=== PATIENT | female | born 1980 | race Hispanic/Latino ===

== ENCOUNTER 2017-08-12 19:08 | Emergency (ER) | payer MEDICAID, OTHER ==
[2017-08-12 19:08] VITALS: BMI 23.1
[2017-08-12 19:25] VITALS: BP 109/86; PULSE 107; RESP 22; TEMP 98.4; O2SAT 92
--- NOTE | 2017-08-13 13:58 | CARD ---
APPROVED REPORT EKG Measurement Heart [id number] <Conclusion> Normal sinus rhythm Possible Anterior infarct, age undetermined Abnormal ECG
== END 2017-08-12 20:36 | disposition left against medical advice (07) ==
LOC: C.ER 19:08
DX: Z02.89 Encounter for other administrative examinations (principal); R05 Cough
CPT/HCPCS: 93005; LWBS0

== ENCOUNTER → 2017-08-18 17:57 | Emergency (ER) | payer OTHER ==
[2017-08-18 17:57] VITALS: BMI 23.1
== END | disposition left against medical advice (07) ==
LOC: C.ER 17:57
DX: Z02.89 Encounter for other administrative examinations (principal); R07.9 Chest pain, unspecified

== ENCOUNTER 2017-11-08 12:57 | Emergency (ER) | payer MEDICAID, OTHER ==
[2017-11-08 12:58] VITALS: BMI 23.1
== END 2017-11-08 13:04 | disposition left against medical advice (07) ==
LOC: C.ER 12:57
DX: Z02.89 Encounter for other administrative examinations (principal)

== ENCOUNTER 2017-11-08 14:39 | Inpatient (IN) | payer MEDICAID, OTHER ==
[2017-11-08 14:39] VITALS: BMI 23.1
[2017-11-08 15:45] LABS: BASO # 0.1 K/uL (0.0-0.2); BASO % 2.3 % (0.0-2.0); EOS # 0.1 K/uL (0.0-0.7); HEMOGLOBIN 13.5 g/dL (11.0-16.0); LYMPH # 3.7 K/uL (1.0-4.3); MEAN CELL VOLUME 96.9 fL (81.0-99.0); MEAN CORPUSCULAR HEMOGLOBIN 33.9 pg (27.0-31.0); MEAN PLATELET VOLUME 6.8 fL (7.2-11.7); MONO # 0.3 K/uL (0.0-0.8); MONO % 6.1 % (0.0-10.0); NEUT # 1.3 K/uL (1.8-7.0); NEUT % 23.6 % (50.0-75.0); RBC 3.97 Mil/uL (3.80-5.20); RED CELL DISTRIBUTION WIDTH 13.2 % (11.5-14.5); WHITE BLOOD COUNT 5.5 K/uL (4.8-10.8)
[2017-11-08 15:57] LABS: HCG,QUALITATIVE URINE NEGATIVE (NEGATIVE)
[2017-11-08 16:17] LABS: ALBUMIN 4.2 g/dL (3.5-5.0); ALT/SGPT 84 U/L (9-52); AST/SGOT 199 U/L (14-36); BLOOD UREA NITROGEN 4 mg/dL (7-17); CALCIUM 8.6 mg/dl (8.6-10.4); GFR AFRICAN-AMERICAN > 60; GFR NON-AFRICAN AMERICAN > 60; SQUAMOUS EPITHIAL < 1 /hpf (0-5); URINE BILIRUBIN NEGATIVE (NEGATIVE); URINE CLARITY Clear (Clear); URINE COLOR Colorless (YELLOW); URINE GLUCOSE (UA) NORMAL (Normal); URINE LEUKOCYTE ESTERASE NEG Leu/uL (Negative); URINE PROTEIN NEGATIVE (NEGATIVE); URINE UROBILINOGEN NORMAL mg/dL (0.2-1.0)
[2017-11-08 16:23] LABS: URINE BLOOD TRACE (NEGATIVE)
[2017-11-08 16:31] LABS: BARBITURATES, UR NEGATIVE (NEGATIVE); BENZODIAZEPINES, UR NEGATIVE (NEGATIVE); OPIATES, UR NEGATIVE (NEGATIVE); PHENCYCLIDINE, UR NEGATIVE (NEGATIVE)
--- NOTE | 2017-11-08 17:09 | C.PDOC ---
History Of Present Illness <Yamini Espinoza - Last Filed: 11/08/17 18:21> <Jaspal Mina - Last Filed: 11/09/17 00:02> 37 year old female, whose PMHx includes suicidal ideation and alcohol use, presents to the ED requesting alcohol detox. Patient states she has been drinking all day. She is accompanied by son at bedside. Patient denies suicidal/ homicidal ideation and other substance abuse at this time. (Yamini Espinoza) History Per: Patient History/Exam Limitations: intoxication Onset/Duration Of Symptoms: Hrs Current Symptoms Are (Timing): Still Present Suicide/Self Injury Attempted (Context): None Modifying Factor(s): Alcohol Associated Symptoms: denies: Suicidal Thoughts, Suicidal Plan Involuntary Hold By: None Recent travel outside of the [place]: No Additional History Per: Patient <Yamini Espinoza - Last Filed: 11/08/17 18:21> <Jaspal Mina - Last Filed: 11/09/17 00:02> Time Seen by Provider: 11/08/17 15:11 Chief Complaint (Nursing): Substance Abuse Past Medical History Reviewed: Historical Data, Nursing Documentation, Vital Signs - Medical History PMH: Anxiety, Asthma, COPD, Depression, Hepatitis, Post Traumatic Stress Disorder, Seizures (Due to alcohol withdrawal), Sexually Transmitted Disease ( Herpes) Denies: Diabetes, HIV (SEE NOTE), HTN Surgical History: No Surg Hx Family History: States: Unknown Family Hx - Social History Hx Tobacco Use: Yes Hx Alcohol Use: Yes (vodka, beer) Hx Substance Use: Yes (LASTED USED 20 DAYS AGO) - Immunization History Hx Tetanus Toxoid Vaccination: No Hx Influenza Vaccination: No Hx Pneumococcal Vaccination: No <Yamini Espinoza - Last Filed: 11/08/17 18:21> Vital Signs: Last Vital Signs Temp 98.0 F 11/08/17 21:14 Pulse 99 H 11/08/17 21:14 Resp 16 11/08/17 21:14 BP 112/76 11/08/17 21:14 Pulse Ox 100 11/08/17 21:14 - [facility] DETOXIFICATION SERVICES FOR SUBSTANCE ABUSE TREATMENT (09/04/16) INDIV PSYCHOTHERAPY FOR SUBSTANCE ABUSE TREATMENT, SUPPORT (09/04/16) INDIV PSYCHOTHERAPY FOR SUBSTANCE ABUSE, COGNITIV BEHAVIORAL (09/04/16) MEDS MGMT FOR SUBSTANCE ABUSE TREATMENT, METHADONE MAINT (09/04/16) Review Of Systems Except As Marked, All Systems Reviewed And Found Negative. Psych: Positive for: Other (alcohol intoxication ). Negative for: Suicidal ideation <Yamini Espinoza - Last Filed: 11/08/17 18:21> Physical Exam - Physical Exam Appears: Non-toxic, No Acute Distress, Unkempt, Other (visibly intoxicated ) Skin: Normal Color, Warm, Dry Head: Atraumatic, Normacephalic Eye(s): bilateral: Normal Inspection Oral Mucosa: Moist, Other (alcohol on breath ) Neck: Normal ROM, Supple Chest: Symmetrical, No Deformity, No Tenderness Cardiovascular: Rhythm Regular, No Murmur Respiratory: Normal Breath Sounds, No Rales, No Rhonchi, No Wheezing Gastrointestinal/Abdominal: Bowel Sounds (active), Soft, No Tenderness Back: Normal Inspection, No CVA Tenderness Extremity: Normal ROM, Capillary Refill (less than 2 seconds ), No Swelling Neurological/Psych: Oriented x3, Normal Speech, Normal Motor, Normal Sensation, Other (awake, alert and arousable to touch and verbal stimuli ) Gait: Steady <Yamini Espinoza - Last Filed: 11/08/17 18:21> ED Course And Treatment - Laboratory Results Result Diagrams: 11/08/17 15:41 11/08/17 15:41 O2 Sat by Pulse Oximetry: 95 (on RA ) Pulse Ox Interpretation: Normal <Yamini Espinoza - Last Filed: 11/08/17 18:21> - Laboratory Results Result Diagrams: 11/08/17 15:41 11/08/17 15:41 <Jaspal Mina - Last Filed: 11/09/17 00:02> Medical Decision Making <Yamini Espinoza - Last Filed: 11/08/17 18:21> <Jaspal Mina - Last Filed: 11/09/17 00:02> Medical Decision Making: Progress: Bloodwork and urinalysis ordered and reviewed. Ativan PO administered. Old records reviewed, and the patient has a history of hypernatremia. Sodium has been 152 in the past. The patient is medically cleared for detox admission. Patient has been worked up for hypernatremia in the past. Medical consult advised if needed. (Yamini Espinoza) endorsed pending crisis eavl. pt clinically sober accepted (Jaspal Mina) Disposition - Disposition Disposition Time: 18:22 <Yamini Espinoza - Last Filed: 11/08/17 18:21> <Jaspal Mina - Last Filed: 11/09/17 00:02> - Disposition Disposition: HOSPITALIZED Condition: STABLE Forms: [facility] ([place]) - Clinical Impression Clinical Impression: Alcohol dependence, Heroin dependence - PA / TELETYPE CLERK / Resident Statement MD/DO has reviewed & agrees with the documentation as recorded. - Scribe Statement The provider has reviewed the documentation as recorded by the Scribe (Terrie Oropeza) <Yamini Espinoza - Last Filed: 11/08/17 18:21> <Jaspal Mina - Last Filed: 11/09/17 00:02> - Scribe Statement All medical record entries made by the Scribe were at my direction and personally dictated by me. I have reviewed the chart and agree that the record accurately reflects my personal performance of the history, physical exam, medical decision making, and the department course for this patient. I have also personally directed, reviewed, and agree with the discharge instructions and disposition. (Yamini Espinoza) Physician Patient Turnover Patient Signed Over To: Jaspal Mina Handoff Comments: Pending sobriety and re-eval <Yamini Espinoza - Last Filed: 11/08/17 18:21> Decision To Admit <Yamini Espinoza - Last Filed: 11/08/17 18:21> - Pt Status Changed To: Hospital Disposition Of: Inpatient - Admit Certification Admit to Inpatient:: After my assessment, the patient will require hospitalization for at least two midnights. This is because of the severity of symptoms shown, intensity of services needed, and/or the medical risk in this patient being treated as an outpatient. - InPatient: Physician Admission Certification: I certify that this patient requires 2 or more midnights of care for the following reason:: needs detox - . Bed Request Type: Detox Admitting Physician: Sohail Davalos <Jaspal Mina - Last Filed: 11/09/17 00:02> - . Patient Diagnosis: Alcohol dependence, Heroin dependence
--- NOTE | 2017-11-09 01:10 | PCM.BM ---
<Alfredo Leon - Last Filed: 11/09/17 01:08> Treatment Plan Problems - Problems identified on initial assessmt Alcohol Abuse Date Initiated: 11/09/17 Time Initiated: 01:20 Assessment reference: NA Status: Active Treatment assets and liabiliti Patient Assests: negotiates basic needs Patient Liabilities: substance abuse (Alcohol) - Milieu Protocol Maintain good personal hygiene: daily Encourage regular showers, daily Remind patient to perform daily oral care, every shift Assist patient to perform ADL's Conduct patient checks and document Observation sheet: Q15 minutes Maintain personal safety: every shift Educate patient to report safety concerns to staff, every shift Monitor environment for contraband/sharps Medication safety: Monitor for expected outcome, potential side effects: every shift, Assess barriers to learning: every shift, Assess readiness for medication education: every shift <Sohail Davalos M - Last Filed: 11/12/17 19:00> - Diagnosis (1) Opioid use disorder, severe, dependence Status: Acute Interventions: 11/12/17 18:57 Assess 7x/week regarding severity of withdrawal * Educate regarding risks, benefits, side effects and alternatives of medications * Use Motivational Interviewing for abstinence * Use CBT for relapse prevention * Medication management for withdrawal symptoms * Encourage medication assisted treatment (2) Alcohol use disorder, severe, dependence Status: Acute Interventions: 11/12/17 18:57 Assess 7x/week regarding severity of withdrawal * Educate regarding risks, benefits, side effects and alternatives of medications * Use Motivational Interviewing for abstinence * Use CBT for relapse prevention * Medication management for withdrawal symptoms * Encourage medication assisted treatment (3) Major depressive disorder, recurrent severe without psychotic features Status: Acute Interventions: 11/12/17 18:59 Assess/adjust medications daily and /or as needed * See patient on an individual basis 7x/week to assess symptoms of depression * Monitor for side effects & effectiveness of medications (4) PTSD (post-traumatic stress disorder) Status: Acute Interventions: 11/12/17 19:00 Assess/adjust medications daily and /or as needed * See patient on an individual basis 7x/week to assess symptoms of depression * Monitor for side effects & effectiveness of medications
[2017-11-09] MEDS: Multiple Vitamins Tab PO SCH (12:06)
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
[2017-11-10 06:14] VITALS: RESP 18
[2017-11-10] MEDS: Multiple Vitamins Tab PO SCH (10:19)
[2017-11-10] MEDS ORDERED: Vitamins A & D Oint UD Foilpak TOP PRN (19:09)
[2017-11-11] MEDS: Multiple Vitamins Tab PO SCH (09:30)
--- NOTE | 2017-11-11 20:02 | PCM.PYCHPN ---
Psychiatric Progress Note - Psychiatric Progress Note Patient seen today, length of contact: 15 minutes Patient Chief Complaint: I'm feeling better. Problems Identified/Issues Discussed: Patient seen, chart reviewed, case discussed with the staff. Issues related to illness and treatment were discussed with the patient. Reported compliant with treatment with no adverse affects. Tolerating treatment very well. Patient reported feeling better. Aftercare discussed with the patient. At the time of evaluation, patient was awake alert oriented 3, had no delusions , no auditory visual hallucinations, no suicidal ideations or homicidal ideations. Medical Problems: Asthma COPD Hep C Diagnostic Results: Reviewed DSM 5 Symptoms Update: Some improvement with treatment Medication Change: No Medical Record Reviewed: Yes Mental Status Examination - Cognitive Function Orientation: Person, Place, Situation, Time Memory: Intact Attention: WNL Concentration: WNL Association: WNL Fund of Knowledge: [facility] Decription of patient's judgement and insights: Fair - Mood Mood: Depressed (Was less than before) - Affect Affect: Depressed - Speech Speech: Appropriate - Formal Thought Process Formal Thought Process: No Impairment Psychotic Thoughts and Behaviors: None - Suicidal Ideation Suicidal Ideation: No - Homicidal Ideation Homicidal Ideation: No Goal/Treatment Plan - Goal/Treatment Plan Need for Continued Stay: Remain at risks for inpatient hospitalization, Discharge may exacerbated symptoms, Severe functional impairment Progress Toward Problem(s) and Goals/Treatment Plan: Patient education. Supportive therapy. Continue treatment as before. CBT for relapse prevention. DC for abstinence. Patient wants to go back to [facility] for follow-up care after discharge from the program. Estimated Date of D/C: 11/13/17 - Smoking Cessation Smoking Cessation Initiated: Yes
--- NOTE | 2017-11-11 20:04 | PCM.PYCHPN ---
Psychiatric Progress Note - Psychiatric Progress Note Patient seen today, length of contact: 15 minutes Patient Chief Complaint: I'm feeling much better. Problems Identified/Issues Discussed: Patient seen, chart reviewed, case discussed with the staff. Issues related to illness and treatment were discussed with the patient. Reported compliant with treatment with no adverse affects. Tolerating treatment very well. Patient reported feeling better. Aftercare discussed with the patient. At the time of evaluation, patient was awake alert oriented 3, had no delusions , no auditory visual hallucinations, no suicidal ideations or homicidal ideations. Medical Problems: Asthma COPD Hep C Diagnostic Results: Reviewed DSM 5 Symptoms Update: Improving with treatment Medication Change: No Medical Record Reviewed: Yes Mental Status Examination - Cognitive Function Orientation: Person, Place, Situation, Time Memory: Intact Attention: WNL Concentration: WNL Association: WNL Fund of Knowledge: [facility] Decription of patient's judgement and insights: Fair - Mood Mood: Neutral - Affect Affect: Other (Appropriate) - Speech Speech: Appropriate - Formal Thought Process Formal Thought Process: No Impairment Psychotic Thoughts and Behaviors: None - Suicidal Ideation Suicidal Ideation: No - Homicidal Ideation Homicidal Ideation: No Goal/Treatment Plan - Goal/Treatment Plan Need for Continued Stay: Remain at risks for inpatient hospitalization, Discharge may exacerbated symptoms, Severe functional impairment Progress Toward Problem(s) and Goals/Treatment Plan: Patient education. Supportive therapy. Continue treatment as before. CBT for relapse prevention. SD for abstinence. Patient wants to go back to [facility] for follow-up care after discharge from the program. Estimated Date of D/C: 11/13/17 - Smoking Cessation Smoking Cessation Initiated: Yes
[2017-11-12 06:31] VITALS: O2SAT 98
[2017-11-12] MEDS: Multiple Vitamins Tab PO SCH (09:09)
[2017-11-12 09:45] VITALS: BP 108/74; PULSE 100; TEMP 98.6
--- NOTE | 2017-11-12 19:03 | PCM.PYCHDC ---
Mental Status Examination - Mental Status Examination Orientation: Person, Place, Situation, Time Memory: Intact Mood: Neutral Affect: Other (Appropriate) Speech: Appropriate Attention: WNL Concentration: WNL Association: WNL Fund of Knowledge: WNL Formal Thought Process: No Impairment Description of patient's judgement and insight: Fair Psychotic Thoughts and Behaviors: None Suicidal Ideation: No Current Homicidal Ideation?: No Discharge Summary - Discharge Note Reason for Hospitalization: Opioid use disorder severe Alcohol use disorder severe Major depressive disorder recurrent severe without psychotic features PTSD Laboratory Data: Reviewed Consultations:: List each consultation separately and include: 1. Reason for request. 2. Findings. 3. Follow-up Summary of Hospital Course include:: 1. Description of specific treatment plan utilized for patients during their course of treatmen. 2. Summarize the time- course for resolution of acute symptoms and/or regressed behaviors. 3. Describe issues identified and worked on during hospitalization. 4. Describe medication utilized. 5. Describe medical problems identified and treated. 6. Reassessment of suicide risk Summary of Hospital Course: Patient is a 37 years old, , unemployed, female who was admitted for the treatment of depression and withdrawing from heroin and alcohol. Patient reported she started using heroin at 20 years of age, 15 bags daily, IV , last used more than a month ago. Longest period of abstinence was 3 years from 2012 to 2016. Patient was in methadone maintenance treatment program for last 5 months, stop going to program for last 1 week. Alcohol: According to record patient started drinking around age 12. Patient was drinking a lot but according to patient she was drinking socially then started drinking heavily about one month ago when she stopped using heroin but was still in the program for methadone. Patient reported drinking daily about 2 L. Last drink yesterday. History of 2 previous detox and [address] [facility] in [facility]. Denied use of any other drugs. Smokes one pack of cigarettes daily and is requesting for nicotine patch. Patient also reported diagnosed as depression and PTSD for last 3 years and was taking medications including Zoloft 100 mg and Remeron 15 mg from her PCP. Patient reported feeling depressed with decreased sleep and decrease appetite. Lost about 40 pounds over 2 months. No current suicidal or homicidal ideations with history of 5 suicidal attempts in the past last had 2 years ago. Patient used different means to kill herself including cutting on arms, hanging, overdose and also by crashing the car and traffic. History of 5 inpatient psychiatric admissions. Her last admission was about 2 years ago. Also crying and feel hopelessness and helplessness. Patient denied any psychotic manic or anxiety symptoms. Patient was born in [place], has some college education. Not working. Her last job was one year ago. She was fired due to substance use. She is and reported has no kids. She lives with sister. Her height is 5 feet and 4 inches. Weight is 132 pounds. During her stay in the hospital patient was treated with methadone for opiate withdrawal symptoms and Ativan for alcohol withdrawal symptoms plus other when necessary medications. Patient tolerated treatment very well and started feeling better and gradually with no adverse affects. Today patient was ready for discharge. At the time of evaluation and discharge, patient was awake alert oriented 3, had no delusions, no auditory or visual hallucinations, no suicidal ideations or homicidal ideations. Patient was discharged in a stable condition. - Diagnosis (1) Opioid use disorder, severe, dependence Status: Acute (2) Alcohol use disorder, severe, dependence Status: Acute (3) Major depressive disorder, recurrent severe without psychotic features Status: Acute (4) PTSD (post-traumatic stress disorder) Status: Acute - Final Diagnosis (DSM 5) Condition upon Discharge: STABLE Disposition: HOME/ ROUTINE Follow-up Treatment Plan: Patient wants to go back to [facility] for follow-up care after discharge from the program. Prescriptions/Medication Reconciliation: Gabapentin [Neurontin] 400 mg PO TID #90 cap Mirtazapine [Remeron] 15 mg PO HS #30 tab Sertraline [Zoloft] 100 mg PO DAILY #30 tab traZODone [Desyrel] 50 mg PO HS PRN #30 tab PRN Reason: Insomnia - Smoking Cessation Smoking Cessation Medication prescribed: No - Antipsychotic Medications Pt discharged on 2 or more routine antipsychotic medications: No
== END 2017-11-12 10:11 | disposition home or self-care (01) | DRG 744 ==
LOC: C.ER 14:39 → C.7D 23:50
PROC: HZ2ZZZZ Detoxification Services for Substance Abuse Treatment (ICD-10-PCS; principal; 2017-11-08)
PROC: HZ52ZZZ Individual Psychotherapy for Substance Abuse Treatment, Cognitive-Behavioral (ICD-10-PCS; 2017-11-08)
PROC: GZHZZZZ Group Psychotherapy (ICD-10-PCS; 2017-11-08)
PROC: HZ59ZZZ Individual Psychotherapy for Substance Abuse Treatment, Supportive (ICD-10-PCS; 2017-11-08)
PROC: HZ42ZZZ Group Counseling for Substance Abuse Treatment, Cognitive-Behavioral (ICD-10-PCS; 2017-11-08)
PROC: GZ58ZZZ Individual Psychotherapy, Cognitive-Behavioral (ICD-10-PCS; 2017-11-08)
PROC: GZ56ZZZ Individual Psychotherapy, Supportive (ICD-10-PCS; 2017-11-08)
DX: F11.23 Opioid dependence with withdrawal (principal); B19.20 Unspecified viral hepatitis C without hepatic coma; F33.2 Major depressive disorder, recurrent severe without psychotic features; J44.9 Chronic obstructive pulmonary disease, unspecified; F10.230 Alcohol dependence with withdrawal, uncomplicated; R45.851 Suicidal ideations; Y90.8 Blood alcohol level of 240 mg/100 ml or more; F43.12 Post-traumatic stress disorder, chronic; F17.210 Nicotine dependence, cigarettes, uncomplicated

== ENCOUNTER 2017-11-18 04:01 | Emergency (ER) | payer MEDICAID, OTHER ==
[2017-11-18 04:12] VITALS: BMI 26.4
--- NOTE | 2017-11-18 04:47 | C.PDOC ---
History Of Present Illness 37 year old female with PMhx of alcohol and heroin abuse is brought to the ED by EMS c/o lower abdominal pain. Patient states " I think I am withdrawing". Patient reports her last drinks was a few hours ago. Patient denies SI/HI, hallucinations, fever, chills, CP, SOB, weakness, numbness. Time Seen by Provider: 11/18/17 04:20 Chief Complaint (Nursing): Substance Abuse History Per: Patient History/Exam Limitations: no limitations Onset/Duration Of Symptoms: Days Current Symptoms Are (Timing): Still Present Suicide/Self Injury Attempted (Context): None Modifying Factor(s): Alcohol Associated Symptoms: denies: Depression, Suicidal Thoughts, Suicidal Plan Recent travel outside of the [place]: Yes Additional History Per: Patient Past Medical History Reviewed: Historical Data, Nursing Documentation, Vital Signs Vital Signs: Last Vital Signs Temp 98.0 F 11/18/17 04:12 Pulse 98 H 11/18/17 04:12 Resp 20 11/18/17 04:12 BP 105/71 11/18/17 04:12 Pulse Ox 100 11/18/17 04:49 - Medical History PMH: Anxiety, Asthma, COPD, Depression, Hepatitis, Post Traumatic Stress Disorder, Seizures (Due to alcohol withdrawal), Sexually Transmitted Disease ( Herpes) Denies: Diabetes, HIV (SEE NOTE), HTN, Chronic Kidney Disease - [facility] Procedures DETOXIFICATION SERVICES FOR SUBSTANCE ABUSE TREATMENT (11/08/17) GROUP LEATHER STRIPPING MACHINE OPERATOR FOR SUBSTANCE ABUSE, COGNITIVE BEHAVIORAL (11/08/17) GROUP PSYCHOTHERAPY (11/08/17) INDIV PSYCHOTHERAPY FOR SUBSTANCE ABUSE TREATMENT, SUPPORT (11/08/17) INDIV PSYCHOTHERAPY FOR SUBSTANCE ABUSE, COGNITIV BEHAVIORAL (11/08/17) INDIVIDUAL PSYCHOTHERAPY, COGNITIVE-BEHAVIORAL (11/08/17) INDIVIDUAL PSYCHOTHERAPY, SUPPORTIVE (11/08/17) MEDS MGMT FOR SUBSTANCE ABUSE TREATMENT, METHADONE MAINT (09/04/16) Family History: States: Unknown Family Hx - Social History Hx Tobacco Use: Yes Hx Alcohol Use: Yes (vodka 1 liter/day) Hx Substance Use: Yes (heroin IV) - Immunization History Hx Tetanus Toxoid Vaccination: No Hx Influenza Vaccination: No Hx Pneumococcal Vaccination: No Review Of Systems Constitutional: Negative for: Fever, Chills Cardiovascular: Negative for: Chest Pain Respiratory: Negative for: Shortness of Breath Gastrointestinal: Negative for: Abdominal Pain Skin: Negative for: Rash Psych: Negative for: Depression, Suicidal ideation Physical Exam - Physical Exam Appears: Non-toxic, Other (drowsy, but arousable to tactile and verbal stimuli) Skin: Normal Color, Warm, Dry Head: Atraumatic, Normacephalic Eye(s): bilateral: Normal Inspection Nose: No Discharge Oral Mucosa: Moist Neck: Normal ROM, Supple Chest: Symmetrical Cardiovascular: Rhythm Regular, No Murmur Respiratory: Normal Breath Sounds, No Rales, No Rhonchi, No Wheezing Gastrointestinal/Abdominal: Soft, Tenderness (mild diffuse), No Guarding, No Rebound Extremity: Normal ROM, No Tenderness, No Other Neurological/Psych: Oriented x3, Normal Speech Gait: Steady ED Course And Treatment - Laboratory Results Result Diagrams: 11/18/17 05:01 11/18/17 05:01 O2 Sat by Pulse Oximetry: 100 (On RA) Pulse Ox Interpretation: Normal Progress Note: Plan: - LAbs. - Zofran 4 mg po. - UA. On reassessment, pt is stable with lipase > 1400, ABD CT with IV contr ordered. IVF with mvi ordered Disposition - Disposition Disposition Time: 07:22 Condition: STABLE Forms: [employer] (Albanian), School Excuse - Clinical Impression Clinical Impression: Pancreatitis, Drug dependence - PA / HEALTH INFORMATION PROVIDER / Resident Statement MD/DO has reviewed & agrees with the documentation as recorded. - Scribe Statement The provider has reviewed the documentation as recorded by the Scribe Marcellus Vance All medical record entries made by the Scribe were at my direction and personally dictated by me. I have reviewed the chart and agree that the record accurately reflects my personal performance of the history, physical exam, medical decision making, and the department course for this patient. I have also personally directed, reviewed, and agree with the discharge instructions and disposition. Physician Patient Turnover Patient Signed Over To: Martha Camacho Handoff Comments: abd ct and admit to medicine
[2017-11-18 05:06] LABS: EOS % 0.7 % (0.0-4.0); HEMOGLOBIN 13.3 g/dL (11.0-16.0); LYMPH # 1.8 K/uL (1.0-4.3); LYMPH % 46.5 % (20.0-40.0); MEAN CELL VOLUME 97.4 fL (81.0-99.0); MEAN CORPUSCULAR HEMOGLOBIN 34.5 pg (27.0-31.0); MEAN CORPUSCULAR HGB CONC 35.5 g/dL (33.0-37.0); MEAN PLATELET VOLUME 6.6 fL (7.2-11.7); MONO # 0.4 K/uL (0.0-0.8); NEUT # 1.7 K/uL (1.8-7.0); NEUT % 41.8 % (50.0-75.0); NRBC % 0.1 % (0.0-2.0); RBC 3.85 Mil/uL (3.80-5.20); RED CELL DISTRIBUTION WIDTH 13.2 % (11.5-14.5)
[2017-11-18 05:24] LABS: ALB/GLOB RATIO 1.2 (1.0-2.1); ALBUMIN 4.2 g/dL (3.5-5.0); ALT/SGPT 105 U/L (9-52); AST/SGOT 207 U/L (14-36); BLOOD UREA NITROGEN 9 mg/dL (7-17); CALCIUM 8.2 mg/dl (8.6-10.4); GFR AFRICAN-AMERICAN > 60; GFR NON-AFRICAN AMERICAN > 60; LIPASE 1464 U/L (23-300)
[2017-11-18] MEDS ORDERED: Multivitamin (MVI) 10 ML, Thiamine 100 MG, Folic Acid 1 MG in Sodium Chloride 0.9% 1,00... IV ONE (05:47)
[2017-11-18] MEDS ORDERED: Iohexol 240 (50 ml) PO ONE (06:51)
[2017-11-18] MEDS ORDERED: Iohexol 240 (50 ml) ONE (07:10)
[2017-11-18 07:38] LABS: SQUAMOUS EPITHIAL 2 /hpf (0-5); URINE BACTERIA RARE (<OCC); URINE BILIRUBIN NEGATIVE (NEGATIVE); URINE BLOOD NEGATIVE (NEGATIVE); URINE CLARITY Hazy (Clear); URINE COLOR Yellow (YELLOW); URINE GLUCOSE (UA) NORMAL (Normal); URINE LEUKOCYTE ESTERASE NEG Leu/uL (Negative); URINE PROTEIN NEGATIVE (NEGATIVE); URINE UROBILINOGEN NORMAL mg/dL (0.2-1.0)
[2017-11-18 08:08] LABS: BARBITURATES, UR NEGATIVE (NEGATIVE); PHENCYCLIDINE, UR NEGATIVE (NEGATIVE)
[2017-11-18] MEDS ORDERED: Iodixanol 320 MG/ML 100 ML BOTTLE IV ONE (08:14)
[2017-11-18] MEDS ORDERED: Potassium Chloride 20 mEq ER Tab PO STA (08:21)
[2017-11-18 08:49] LABS: BENZODIAZEPINES, UR POSITIVE (NEGATIVE); OPIATES, UR POSITIVE (NEGATIVE)
--- NOTE | 2017-11-18 08:59 | CT ---
PROCEDURE: CT Abdomen and Pelvis without intravenous contrast HISTORY: Abd Pain,elev lipase COMPARISON: 08/13/2012 TECHNIQUE: Without contrast.. Contrast dose: 0 Radiation dose: Total exam DLP = 286.64 mGy-cm. This CT exam was performed using one or more of the following dose reduction techniques: Automated exposure control, adjustment of the mA and/or kV according to patient size, and/or use of iterative reconstruction technique. FINDINGS: LOWER THORAX: Unremarkable. LIVER: Hepatomegaly. The liver measures 22.2 cm craniocaudal. Smooth contour. No mass. No biliary dilatation. Diffusely diminished attenuation compared to spleen consistent with fatty infiltration. GALLBLADDER AND BILE DUCTS: Unremarkable. PANCREAS: Mild enlargement of the pancreas. Hazy increased density with possible trace fluid about the head and body of the pancreas consistent with acute pancreatitis. Correlate with laboratory and clinical evaluation. No mass. No pancreatic ductal dilatation. SPLEEN: Unremarkable. ADRENALS: Unremarkable. No mass. KIDNEYS AND URETERS: Unremarkable. No hydronephrosis. No solid mass. VASCULATURE: Unremarkable. No aortic aneurysm. BOWEL: Mural thickening of the 3rd duodenum likely related to adjacent pancreatitis. No bowel obstruction. No other abnormal bowel loops. APPENDIX: Unremarkable. Normal appendix. PERITONEUM: Unremarkable. No free fluid. No free air. LYMPH NODES: Unremarkable. No enlarged lymph nodes. BLADDER: Unremarkable. REPRODUCTIVE: Normal uterus BONES: No acute fracture. OTHER FINDINGS: None. IMPRESSION: Findings consistent with acute pancreatitis. Please correlate with clinical and laboratory evaluation. Hepatomegaly with diffuse fatty infiltration of the liver. Mild mural thickening of the 3rd duodenum consistent with adjacent pancreatitis. No other significant abnormality.
[2017-11-18 09:17] VITALS: RESP 18
[2017-11-18] MEDS ORDERED: Potassium Chloride 20 mEq ER Tab PO ONE (09:22)
[2017-11-18 11:13] VITALS: BP 132/84; PULSE 84; TEMP 99.2; O2SAT 100
== END 2017-11-18 11:45 | disposition left against medical advice (07) ==
LOC: C.ER 04:01 → C.9E 10:23 → UNDOADMIN 10:23 → C.5S 10:57 → C.9E 10:57 → C.ER 11:45 → C.5S 12:01 → C.9E 12:01
DX: K85.90 Acute pancreatitis without necrosis or infection, unspecified (principal); F19.20 Other psychoactive substance dependence, uncomplicated; E87.6 Hypokalemia
CPT/HCPCS: 74176; 80053; 80320; 80324; 80345; 80346; 80349; 80353; 80358; 80361; 81001; 82948; 83690; 83992; 85025; 96365; 96375; 99285; J3411; J7040; Q9966

== ENCOUNTER 2017-11-30 16:07 | Emergency (ER) | payer OTHER ==
[2017-11-30 16:08] VITALS: BMI 26.4
[2017-11-30 16:15] VITALS: BP 139/88; PULSE 99; TEMP 98.5; O2SAT 97
[2017-11-30 17:00] VITALS: RESP 18
--- NOTE | 2017-11-30 17:23 | C.PDOC ---
History Of Present Illness 37 y/o female with Hx of chronic alcoholism and heroin abuse presents to ED for complaints of scant bright red blood per rectum. Patient states she was last evaluated on November 18 with normal labs for pancreatitis and lipase of 1500. Patient was positive for alcohol, opiods and methadone. Patient was in [place] for detox November 09- and is currently requesting detox. Denies any other physical complaints. Time Seen by Provider: 11/30/17 16:20 Chief Complaint (Nursing): Abdominal Pain History Per: Patient History/Exam Limitations: no limitations Onset/Duration Of Symptoms: Hrs Current Symptoms Are (Timing): Still Present Radiation Of Pain To:: None Associated Symptoms: Other (bright red blood per rectum). denies: Fever, Chills , Nausea, Vomiting, Diarrhea Exacerbating Factors: None Alleviating Factors: None Last Bowel Movement: Today Recent travel outside of the [place]: No Abnormal Vaginal Bleeding: No Past Medical History Reviewed: Historical Data, Nursing Documentation, Vital Signs Vital Signs: Last Vital Signs Temp 98.5 F 11/30/17 16:13 Pulse 99 H 11/30/17 16:13 Resp 18 11/30/17 16:59 BP 139/88 11/30/17 16:13 Pulse Ox 97 11/30/17 17:24 - Medical History PMH: Anxiety, Asthma, COPD, Depression, Hepatitis, Post Traumatic Stress Disorder, Seizures (Due to alcohol withdrawal), Sexually Transmitted Disease ( Herpes) Comment Only: HIV (SEE NOTE) - [facility] Procedures DETOXIFICATION SERVICES FOR SUBSTANCE ABUSE TREATMENT (11/08/17) GROUP SAWYER HELPER FOR SUBSTANCE ABUSE, COGNITIVE BEHAVIORAL (11/08/17) GROUP PSYCHOTHERAPY (11/08/17) INDIV PSYCHOTHERAPY FOR SUBSTANCE ABUSE TREATMENT, SUPPORT (11/08/17) INDIV PSYCHOTHERAPY FOR SUBSTANCE ABUSE, COGNITIV BEHAVIORAL (11/08/17) INDIVIDUAL PSYCHOTHERAPY, COGNITIVE-BEHAVIORAL (11/08/17) INDIVIDUAL PSYCHOTHERAPY, SUPPORTIVE (11/08/17) MEDS MGMT FOR SUBSTANCE ABUSE TREATMENT, METHADONE MAINT (09/04/16) Family History: States: Unknown Family Hx - Social History Hx Tobacco Use: Yes Hx Alcohol Use: Yes (vodka 1 liter/day) Hx Substance Use: Yes (heroin IV) - Immunization History Hx Tetanus Toxoid Vaccination: No Hx Influenza Vaccination: No Hx Pneumococcal Vaccination: No Review Of Systems Constitutional: Negative for: Fever, Chills Gastrointestinal: Positive for: Other (bright red blood per rectum). Negative for: Nausea, Vomiting, Abdominal Pain, Diarrhea Skin: Negative for: Rash Neurological: Negative for: Weakness, Numbness Physical Exam - Physical Exam Appears: Non-toxic, No Acute Distress, Other (Intoxicated; older than states age ; obese ) Skin: Normal Color, Warm, Dry Head: Atraumatic, Normacephalic Eye(s): bilateral: Normal Inspection, PERRL, EOMI Oral Mucosa: Moist Chest: Symmetrical, No Tenderness Cardiovascular: No Murmur Respiratory: Normal Breath Sounds, No Decreased Breath Sounds, No Rales, No Rhonchi, No Wheezing Gastrointestinal/Abdominal: Soft, No Tenderness, Other (Obese) Rectal: No Blood Streaked Stool, Hemorrhoids (Small external, non bleeding and non tender ), No Tenderness, Other (Exam done with nurse Ingred ) Extremity: Normal ROM Extremity: Bilateral: Normal Color And Temperature, Normal ROM Neurological/Psych: Oriented x3, Normal Speech, Normal Cognition Gait: Steady ED Course And Treatment O2 Sat by Pulse Oximetry: 97 (RA) Pulse Ox Interpretation: Normal Medical Decision Making Medical Decision Making: Discussed with crisis Workers. slight BRBPR with wiping and h/o ext hemorroids, + hemorroids on exam, non- bleeding now benign belly now despite persistent etoh abuse Recent detox 11/09-03/24 pt left for opt f/u but lost to f/u. pt requesting repeat Detox today d/w Crisis, willing to take pt under Psych for Depression/substance abuse but pt eloped from ED 2 approx 1700 Disposition Doctor Will See Patient In The: Office - Disposition Disposition: ELOPEMENT - ER ONLY Disposition Time: 17:00 Condition: GOOD Forms: [employer] (Mexican) - Clinical Impression Clinical Impression: Heroin dependence, Alcohol use disorder, severe, dependence, Hx of hemorrhoids - Scribe Statement The provider has reviewed the documentation as recorded by the Jaron Latif All medical record entries made by the Scribe were at my direction and personally dictated by me. I have reviewed the chart and agree that the record accurately reflects my personal performance of the history, physical exam, medical decision making, and the department course for this patient. I have also personally directed, reviewed, and agree with the discharge instructions and disposition.
== END 2017-11-30 17:00 | disposition left against medical advice (07) ==
LOC: C.ER 16:07
DX: F10.20 Alcohol dependence, uncomplicated (principal); F11.20 Opioid dependence, uncomplicated; K64.9 Unspecified hemorrhoids

== ENCOUNTER 2018-02-09 15:27 | Inpatient (IN) | payer MEDICAID, OTHER ==
[2018-02-09 15:27] VITALS: BMI 26.4
[2018-02-09 16:16] LABS: BASO # 0.1 K/uL (0.0-0.2); EOS # 0.2 K/uL (0.0-0.7); EOS % 2.5 % (0.0-4.0); LYMPH # 3.3 K/uL (1.0-4.3); LYMPH % 49.3 % (20.0-40.0); MEAN CORPUSCULAR HEMOGLOBIN 36.5 pg (27.0-31.0); MEAN CORPUSCULAR HGB CONC 34.5 g/dL (33.0-37.0); MEAN PLATELET VOLUME 8.2 fL (7.2-11.7); MONO # 0.6 K/uL (0.0-0.8); MONO % 8.8 % (0.0-10.0); NEUT # 2.6 K/uL (1.8-7.0); NEUT % 38.4 % (50.0-75.0); NRBC % 0.1 % (0.0-2.0); RBC 4.41 Mil/uL (3.80-5.20); RED CELL DISTRIBUTION WIDTH 15.1 % (11.5-14.5)
[2018-02-09 16:20] LABS: HEMOGLOBIN 16.1 g/dL (11.0-16.0); WHITE BLOOD COUNT 6.7 K/uL (4.8-10.8)
[2018-02-09 16:21] LABS: MEAN CELL VOLUME 105.8 fL (81.0-99.0)
[2018-02-09 16:27] LABS: SQUAMOUS EPITHIAL 1 /hpf (0-5); URINE BACTERIA RARE (<OCC); URINE BILIRUBIN NEGATIVE (NEGATIVE); URINE BLOOD NEGATIVE (NEGATIVE); URINE CLARITY Clear (Clear); URINE COLOR Yellow (YELLOW); URINE GLUCOSE (UA) NORMAL (Normal); URINE LEUKOCYTE ESTERASE NEG Leu/uL (Negative); URINE PROTEIN NEGATIVE (NEGATIVE); URINE UROBILINOGEN NORMAL mg/dL (0.2-1.0)
[2018-02-09 16:31] LABS: ALB/GLOB RATIO 1.4 (1.0-2.1); ALBUMIN 4.7 g/dL (3.5-5.0); ALT/SGPT 115 U/L (9-52); AST/SGOT 153 U/L (14-36); BLOOD UREA NITROGEN 7 mg/dL (7-17); CALCIUM 9.8 mg/dl (8.6-10.4); GFR AFRICAN-AMERICAN > 60; GFR NON-AFRICAN AMERICAN > 60
--- NOTE | 2018-02-09 16:35 | C.PDOC ---
History Of Present Illness 38-year-old female, presents to the emergency department, pre screened for detox from EtOh and heroin. Patient denies nausea/vomiting, fever or chills. No other complaints at this time. Time Seen by Provider: 02/09/18 15:48 Chief Complaint (Nursing): Substance Abuse History Per: Patient History/Exam Limitations: no limitations Past Medical History Reviewed: Historical Data, Nursing Documentation, Vital Signs Vital Signs: Last Vital Signs Temp 98.2 F 02/09/18 15:42 Pulse 105 H 02/09/18 15:42 Resp 18 02/09/18 15:42 BP 118/80 02/09/18 15:42 Pulse Ox 94 L 02/09/18 16:35 - Medical History PMH: Anxiety, Asthma, COPD, Depression, Hepatitis, Post Traumatic Stress Disorder, Seizures (Due to alcohol withdrawal), Sexually Transmitted Disease ( Herpes) Denies: Diabetes, HTN, Chronic Kidney Disease Comment Only: HIV (SEE NOTE) - [facility] Procedures DETOXIFICATION SERVICES FOR SUBSTANCE ABUSE TREATMENT (11/08/17) GROUP COMPUTER DISCOVERY TEACHER FOR SUBSTANCE ABUSE, COGNITIVE BEHAVIORAL (11/08/17) GROUP PSYCHOTHERAPY (11/08/17) INDIV PSYCHOTHERAPY FOR SUBSTANCE ABUSE TREATMENT, SUPPORT (11/08/17) INDIV PSYCHOTHERAPY FOR SUBSTANCE ABUSE, COGNITIV BEHAVIORAL (11/08/17) INDIVIDUAL PSYCHOTHERAPY, COGNITIVE-BEHAVIORAL (11/08/17) INDIVIDUAL PSYCHOTHERAPY, SUPPORTIVE (11/08/17) MEDS MGMT FOR SUBSTANCE ABUSE TREATMENT, METHADONE MAINT (09/04/16) Family History: States: No Known Family Hx - Social History Hx Tobacco Use: Yes Hx Alcohol Use: Yes (vodka 1 liter/day) Hx Substance Use: Yes (heroin IV) - Immunization History Hx Tetanus Toxoid Vaccination: No Hx Influenza Vaccination: No Hx Pneumococcal Vaccination: No Review Of Systems Constitutional: Negative for: Fever Cardiovascular: Negative for: Chest Pain Respiratory: Negative for: Shortness of Breath Gastrointestinal: Negative for: Vomiting Skin: Negative for: Rash Neurological: Negative for: Headache, Dizziness Physical Exam - Physical Exam Appears: Non-toxic, No Acute Distress Skin: Normal Color, Warm, Dry, No Rash Head: Atraumatic Eye(s): bilateral: Normal Inspection Nose: Normal Oral Mucosa: Moist Lips: Normal Appearing Neck: Normal ROM Chest: Symmetrical Cardiovascular: Rhythm Regular, No Murmur Respiratory: Normal Breath Sounds, No Accessory Muscle Use Gastrointestinal/Abdominal: Soft, No Tenderness Extremity: Normal ROM, No Deformity Neurological/Psych: Oriented x3, Normal Speech ED Course And Treatment - Laboratory Results Result Diagrams: 02/09/18 16:13 02/09/18 16:13 O2 Sat by Pulse Oximetry: 94 Pulse Ox Interpretation: Abnormal Disposition Discussed With DrJacki: Sohail Davalos Doctor Will See Patient In The: Hospital Counseled Patient/Family Regarding: Studies Performed, Diagnosis - Disposition Disposition: HOSPITALIZED Disposition Time: 17:37 Condition: FAIR Forms: [employer] (Lebanese) - Clinical Impression Clinical Impression: Substance abuse - Scribe Statement The provider has reviewed the documentation as recorded by the Scribe (Karolyn Julien) All medical record entries made by the Scribe were at my direction and personally dictated by me. I have reviewed the chart and agree that the record accurately reflects my personal performance of the history, physical exam, medical decision making, and the department course for this patient. I have also personally directed, reviewed, and agree with the discharge instructions and disposition.
[2018-02-09 16:47] LABS: BARBITURATES, UR NEGATIVE (NEGATIVE); BENZODIAZEPINES, UR NEGATIVE (NEGATIVE); PHENCYCLIDINE, UR NEGATIVE (NEGATIVE)
[2018-02-09 16:51] LABS: OPIATES, UR POSITIVE (NEGATIVE)
--- NOTE | 2018-02-09 20:38 | PCM.BM ---
<Love Rice - Last Filed: 02/09/18 20:36> Treatment Plan Problems - Problems identified on initial assessmt potential for alcohol withdrawal Date Initiated: 02/09/18 Time Initiated: 20:37 Assessment reference: NA Status: Active potential for heroin withdrawal Date Initiated: 02/09/18 Time Initiated: 20:37 Assessment reference: NA Status: Active Treatment assets and liabiliti Patient Assests: cooperative, insightful, resourceful, self-reliant, ADL independent, good support system, negotiates basic needs, cognitively intact, good interpersonal skills Patient Liabilities: live alone, substance abuse, medical problems - Milieu Protocol Maintain good personal hygiene: daily Encourage regular showers, daily Remind patient to perform daily oral care, daily Assist patient to perform ADL's Maintain personal safety: every shift Educate patient to report safety concerns to staff, every shift Monitor environment for contraband/sharps Medication safety: Monitor for expected outcome, potential side effects: every shift, Assess barriers to learning: every shift, Assess readiness for medication education: every shift <Nisha Henderson - Last Filed: 02/11/18 10:32> Family Contact Family involvement: Famliy/SO not involved - Goals for Treatment Patient goals for treatment: Complete detox and transition to Vivitrol maintenance. Discharge/Continuing Care - Education Needs Education Needs: Patient Medication, Patient Diagnosis/Disease Process, Patient Coping Skills, Patient Anger Management skills, Patient Placement options, Patient Community resources - Discharge Discharge Criteria: No longer exhibiting s/s of withdrawal, Reduction of target symptoms Discharge to:: Home, With Family - Treatment Team Participation Patient/Family/SO Statement: 02/11/18 10:33 "I wanna try the shot..." Discussed with Family/SO: No Was Patient/Family/SO present at Treatment Team Meeting: Yes <Latonya Anderson - Last Filed: 02/11/18 12:08> - Diagnosis (1) Alcohol use disorder, severe, dependence Status: Acute Interventions: 02/11/18 12:08 * Assess 7x/week regarding severity of withdrawal * Educate regarding risks, benefits, side effects and alternatives of medications * Use Motivational Interviewing for abstinence * Use CBT for relapse prevention * Medication management for withdrawal symptoms * Encourage medication assisted treatment * (2) Depression Status: Acute Interventions: 02/11/18 12:08 * Assess/adjust medications daily and /or as needed * See patient on an individual basis 7x/week to assess symptoms of depression * Monitor for side effects & effectiveness of medications *
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
[2018-02-10] MEDS ORDERED: Albuterol HFA 90 mcg/actuation (8 g) IH PRN (15:00)
[2018-02-10] MEDS: Budesonide 0.25 mg/2 ml Inhal Susp UD INH SCH (20:06)
[2018-02-10] MEDS: Aluminum Hydroxide/Magnesium Hydroxide Susp (30 mL) PO PRN (22:18)
[2018-02-11] MEDS: Budesonide 0.25 mg/2 ml Inhal Susp UD INH SCH ×2 (09:41→20:44)
--- NOTE | 2018-02-11 12:33 | PCM.PYCHPN ---
Psychiatric Progress Note - Psychiatric Progress Note Patient seen today, length of contact: 16 min Patient Chief Complaint: "I could not sleep last night" Problems Identified/Issues Discussed: The pt is seen, chart reviewed, case discussed with staff. The pt is compliant with medications and reports no side-effects. Symptoms are improving but needs more time to stabilize. Pt attends groups and activities. Support given, psycho-education provided. After care discussed. Medication Change: Yes (detox changes daily) Medical Record Reviewed: Yes Mental Status Examination - Cognitive Function Orientation: Person, Place, Situation, Time Memory: Intact Attention: WNL Concentration: WNL Association: WNL Fund of Knowledge: WNL - Mood Mood: Depressed - Affect Affect: Constricted - Speech Speech: Appropriate - Formal Thought Process Formal Thought Process: No Impairment - Suicidal Ideation Suicidal Ideation: No - Homicidal Ideation Homicidal Ideation: No Goal/Treatment Plan - Goal/Treatment Plan Need for Continued Stay: Severe depression anxiety, Discharge may exacerbated symptoms, Severe functional impairment Progress Toward Problem(s) and Goals/Treatment Plan: Continue medications Support and psychoeducation daily Attend groups and activities daily After care planning by counselors [facility] lion for sleep Risks of meds discussed - understood Estimated Date of D/C: 02/13/18
[2018-02-11 14:01] VITALS: RESP 18
[2018-02-12] MEDS: Aluminum Hydroxide/Magnesium Hydroxide Susp (30 mL) PO PRN (06:33)
[2018-02-12] MEDS: Budesonide 0.25 mg/2 ml Inhal Susp UD INH SCH (08:26)
[2018-02-12] MEDS ORDERED: Vitamins A & D Oint UD Foilpak TOP PRN (13:26)
[2018-02-12 17:01] VITALS: BP 112/76; PULSE 91; TEMP 98.1; O2SAT 97
--- NOTE | 2018-02-13 09:36 | PCM.PYCHDC ---
Mental Status Examination - Mental Status Examination Orientation: Person Discharge Summary - Discharge Note Consultations:: List each consultation separately and include: 1. Reason for request. 2. Findings. 3. Follow-up Summary of Hospital Course include:: 1. Description of specific treatment plan utilized for patients during their course of treatmen. 2. Summarize the time- course for resolution of acute symptoms and/or regressed behaviors. 3. Describe issues identified and worked on during hospitalization. 4. Describe medication utilized. 5. Describe medical problems identified and treated. 6. Reassessment of suicide risk - Diagnosis (1) Alcohol use disorder, severe, dependence Status: Acute (2) Depression Status: Acute - Final Diagnosis (DSM 5) Condition upon Discharge: FAIR Disposition: HOME/ ROUTINE Prescriptions/Medication Reconciliation: Albuterol HFA [Ventolin HFA 90 mcg/actuation (8 g)] 2 puff IH [id number] PRN #1 inhaler PRN Reason: Shortness Of Breath Budesonide [Pulmicort Respules] 0.25 mg INH RQ12 #1 nebu Gabapentin [Neurontin] 300 mg PO TID #90 cap Mirtazapine [Remeron] 30 mg PO HS #30 tab QUEtiapine [Seroquel] 100 mg PO HS #30 tab
== END 2018-02-12 17:04 | disposition home or self-care (01) | DRG 744 ==
LOC: C.ER 15:27 → C.7D 17:36
PROC: HZ2ZZZZ Detoxification Services for Substance Abuse Treatment (ICD-10-PCS; principal; 2018-02-09)
PROC: HZ52ZZZ Individual Psychotherapy for Substance Abuse Treatment, Cognitive-Behavioral (ICD-10-PCS; 2018-02-09)
PROC: HZ59ZZZ Individual Psychotherapy for Substance Abuse Treatment, Supportive (ICD-10-PCS; 2018-02-09)
PROC: HZ56ZZZ Individual Psychotherapy for Substance Abuse Treatment, Psychoeducation (ICD-10-PCS; 2018-02-09)
PROC: HZ42ZZZ Group Counseling for Substance Abuse Treatment, Cognitive-Behavioral (ICD-10-PCS; 2018-02-09)
PROC: HZ46ZZZ Group Counseling for Substance Abuse Treatment, Psychoeducation (ICD-10-PCS; 2018-02-09)
PROC: GZHZZZZ Group Psychotherapy (ICD-10-PCS; 2018-02-09)
PROC: GZ58ZZZ Individual Psychotherapy, Cognitive-Behavioral (ICD-10-PCS; 2018-02-09)
PROC: GZ56ZZZ Individual Psychotherapy, Supportive (ICD-10-PCS; 2018-02-09)
DX: F10.230 Alcohol dependence with withdrawal, uncomplicated (principal); J44.9 Chronic obstructive pulmonary disease, unspecified; R56.9 Unspecified convulsions; F11.23 Opioid dependence with withdrawal; Y90.7 Blood alcohol level of 200-239 mg/100 ml; F43.10 Post-traumatic stress disorder, unspecified; F17.210 Nicotine dependence, cigarettes, uncomplicated; F32.9 Major depressive disorder, single episode, unspecified; Z91.5 Personal history of self-harm; Z86.19 Personal history of other infectious and parasitic diseases

== ENCOUNTER 2018-03-10 14:48 | Inpatient (IN) | payer MEDICAID, OTHER ==
[2018-03-10 14:49] VITALS: BMI 26.4
[2018-03-10 15:40] LABS: BASO # 0.1 K/uL (0.0-0.2); EOS # 0.1 K/uL (0.0-0.7); EOS % 1.3 % (0.0-4.0); HEMOGLOBIN 16.1 g/dL (11.0-16.0); LYMPH # 2.7 K/uL (1.0-4.3); LYMPH % 38.7 % (20.0-40.0); MEAN CORPUSCULAR HEMOGLOBIN 35.6 pg (27.0-31.0); MEAN CORPUSCULAR HGB CONC 35.1 g/dL (33.0-37.0); MEAN PLATELET VOLUME 7.9 fL (7.2-11.7); MONO # 0.8 K/uL (0.0-0.8); MONO % 11.9 % (0.0-10.0); NEUT # 3.2 K/uL (1.8-7.0); NEUT % 47.1 % (50.0-75.0); NRBC % 0.1 % (0.0-2.0); RBC 4.51 Mil/uL (3.80-5.20); RED CELL DISTRIBUTION WIDTH 13.5 % (11.5-14.5); WHITE BLOOD COUNT 6.9 K/uL (4.8-10.8)
[2018-03-10 15:42] LABS: URINE BILIRUBIN NEGATIVE (NEGATIVE); URINE BLOOD NEGATIVE (NEGATIVE); URINE CLARITY Clear (Clear); URINE COLOR Straw (YELLOW); URINE GLUCOSE (UA) NORMAL (Normal); URINE LEUKOCYTE ESTERASE NEG Leu/uL (Negative); URINE PROTEIN NEGATIVE (NEGATIVE); URINE UROBILINOGEN NORMAL mg/dL (0.2-1.0)
[2018-03-10 15:43] LABS: MEAN CELL VOLUME 101.5 fL (81.0-99.0)
[2018-03-10 16:05] LABS: ALB/GLOB RATIO 1.3 (1.0-2.1); ALBUMIN 4.9 g/dL (3.5-5.0); ALT/SGPT 97 U/L (9-52); AST/SGOT 93 U/L (14-36); BLOOD UREA NITROGEN 11 mg/dL (7-17); CALCIUM 9.8 mg/dl (8.6-10.4); GFR NON-AFRICAN AMERICAN > 60
--- NOTE | 2018-03-10 16:06 | C.PDOC ---
History Of Present Illness 38 y/o female presents to ED requesting detox from [facility] and Heroin. Patient reports last used 1 hr [employer] and denies fever, chills, SI/HI, nausea, vomiting or any other complaints at this time. Time Seen by Provider: 03/10/18 15:14 Chief Complaint (Nursing): Substance Abuse History Per: Patient History/Exam Limitations: no limitations Onset/Duration Of Symptoms: Days Current Symptoms Are (Timing): Still Present Suicide/Self Injury Attempted (Context): None Modifying Factor(s): Alcohol, Narcotics Past Medical History Reviewed: Historical Data, Nursing Documentation, Vital Signs Vital Signs: Last Vital Signs Temp 98.1 F 03/10/18 15:07 Pulse 108 H 03/10/18 15:07 Resp 20 03/10/18 15:07 BP 104/71 03/10/18 15:07 Pulse Ox 93 L 03/10/18 16:10 - Medical History PMH: Anxiety, Asthma, COPD, Depression, Hepatitis, Pancreatitis, Post Traumatic Stress Disorder, Seizures (Due to alcohol withdrawal), Sexually Transmitted Disease (Herpes) Comment Only: HIV (SEE NOTE) Surgical History: No Surg Hx - [facility] Procedures DETOXIFICATION SERVICES FOR SUBSTANCE ABUSE TREATMENT (02/09/18) GROUP COST ESTIMATING MANAGER FOR SUBSTANCE ABUSE TREATMENT, PSYCHOEDUCATION (02/09/18) GROUP COST ESTIMATING MANAGER FOR SUBSTANCE ABUSE, COGNITIVE BEHAVIORAL (02/09/18) GROUP PSYCHOTHERAPY (02/09/18) INDIV PSYCHOTHERAPY FOR SUBSTANCE ABUSE TREATMENT, SUPPORT (02/09/18) INDIV PSYCHOTHERAPY FOR SUBSTANCE ABUSE, COGNITIV BEHAVIORAL (02/09/18) INDIV PSYCHOTHERAPY FOR SUBSTANCE ABUSE, PSYCHOEDUCATION (02/09/18) INDIVIDUAL PSYCHOTHERAPY, COGNITIVE-BEHAVIORAL (02/09/18) INDIVIDUAL PSYCHOTHERAPY, SUPPORTIVE (02/09/18) MEDS MGMT FOR SUBSTANCE ABUSE TREATMENT, METHADONE MAINT (09/04/16) Family History: States: No Known Family Hx - Social History Hx Tobacco Use: Yes Hx Alcohol Use: Yes Hx Substance Use: Yes - Immunization History Hx Tetanus Toxoid Vaccination: No Hx Influenza Vaccination: No Hx Pneumococcal Vaccination: No Review Of Systems Except As Marked, All Systems Reviewed And Found Negative. Psych: Positive for: Other (substance abuse) Physical Exam - Physical Exam Appears: Non-toxic, No Acute Distress Skin: Warm, Dry, No Rash Head: Atraumatic, Normacephalic Eye(s): bilateral: Normal Inspection Oral Mucosa: Moist Neck: Supple Cardiovascular: Rhythm Regular Respiratory: Normal Breath Sounds, No Rales, No Rhonchi, No Wheezing Gastrointestinal/Abdominal: Soft, No Tenderness, No Guarding, No Rebound Neurological/Psych: Oriented x3, Normal Speech, Normal Cognition ED Course And Treatment - Laboratory Results Result Diagrams: 03/10/18 15:33 03/10/18 15:33 O2 Sat by Pulse Oximetry: 93 (RA) Medical Decision Making Medical Decision Making: Assessment: Substance abuse Progress: Patient pre screened, Pending medical clearance Disposition Discussed With Dr.: Sohail Davalos Counseled Patient/Family Regarding: Studies Performed, Diagnosis - Disposition Disposition: HOSPITALIZED Disposition Time: 18:49 Condition: FAIR Forms: [facility] (Kenyan) - Clinical Impression Clinical Impression: Substance abuse - Scribe Statement The provider has reviewed the documentation as recorded by the Scribe Yamile Bueno All medical record entries made by the Scribe were at my direction and personally dictated by me. I have reviewed the chart and agree that the record accurately reflects my personal performance of the history, physical exam, medical decision making, and the department course for this patient. I have also personally directed, reviewed, and agree with the discharge instructions and disposition.
[2018-03-10 16:08] LABS: BARBITURATES, UR NEGATIVE (NEGATIVE); BENZODIAZEPINES, UR NEGATIVE (NEGATIVE); PHENCYCLIDINE, UR NEGATIVE (NEGATIVE)
[2018-03-10 16:10] LABS: OPIATES, UR POSITIVE (NEGATIVE)
--- NOTE | 2018-03-10 19:26 | PCM.BM ---
Treatment Plan Problems - Problems identified on initial assessmt Substance abuse potential for imparied coping Date Initiated: 03/10/18 Time Initiated: 19:30 Assessment reference: NA Status: Active Treatment assets and liabiliti Patient Assests: adapts well, cooperative, insightful, resourceful, self-reliant , ADL independent, good support system, negotiates basic needs, cognitively intact, good interpersonal skills Patient Liabilities: substance abuse - Milieu Protocol Maintain good personal hygiene: daily Encourage regular showers, daily Remind patient to perform daily oral care, daily Assist patient to perform ADL's Conduct patient checks and document Observation sheet: Q15 minutes Maintain personal safety: every shift Educate patient to report safety concerns to staff, every shift Monitor environment for contraband/sharps Medication safety: Monitor for expected outcome, potential side effects: every shift, Assess barriers to learning: every shift, Assess readiness for medication education: every shift
[2018-03-10] MEDS ORDERED: Aluminum Hydroxide/Magnesium Hydroxide Susp (30 mL) PO PRN (22:06)
[2018-03-11 06:26] VITALS: RESP 18; O2SAT 98
[2018-03-11 08:44] VITALS: BP 123/77; PULSE 98; TEMP 98.4
[2018-03-11] MEDS ORDERED: Multiple Vitamins Tab PO SCH (10:00)
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
--- NOTE | 2018-03-12 00:29 | PCM.PYCHDC ---
Mental Status Examination - Mental Status Examination Orientation: Person Discharge Summary - Discharge Note Consultations:: List each consultation separately and include: 1. Reason for request. 2. Findings. 3. Follow-up Summary of Hospital Course include:: 1. Description of specific treatment plan utilized for patients during their course of treatmen. 2. Summarize the time- course for resolution of acute symptoms and/or regressed behaviors. 3. Describe issues identified and worked on during hospitalization. 4. Describe medication utilized. 5. Describe medical problems identified and treated. 6. Reassessment of suicide risk - Final Diagnosis (DSM 5) Condition upon Discharge: FAIR Disposition: AGAINST MEDICAL ADVICE
== END 2018-03-11 09:00 | disposition left against medical advice (07) | DRG 743 ==
LOC: C.ER 14:48 → C.7D 18:48
PROC: HZ2ZZZZ Detoxification Services for Substance Abuse Treatment (ICD-10-PCS; principal; 2018-03-10)
PROC: HZ52ZZZ Individual Psychotherapy for Substance Abuse Treatment, Cognitive-Behavioral (ICD-10-PCS; 2018-03-10)
PROC: HZ59ZZZ Individual Psychotherapy for Substance Abuse Treatment, Supportive (ICD-10-PCS; 2018-03-10)
PROC: HZ56ZZZ Individual Psychotherapy for Substance Abuse Treatment, Psychoeducation (ICD-10-PCS; 2018-03-10)
PROC: HZ42ZZZ Group Counseling for Substance Abuse Treatment, Cognitive-Behavioral (ICD-10-PCS; 2018-03-10)
PROC: HZ46ZZZ Group Counseling for Substance Abuse Treatment, Psychoeducation (ICD-10-PCS; 2018-03-10)
PROC: GZHZZZZ Group Psychotherapy (ICD-10-PCS; 2018-03-10)
PROC: GZ58ZZZ Individual Psychotherapy, Cognitive-Behavioral (ICD-10-PCS; 2018-03-10)
PROC: GZ56ZZZ Individual Psychotherapy, Supportive (ICD-10-PCS; 2018-03-10)
DX: F10.230 Alcohol dependence with withdrawal, uncomplicated (principal); J44.9 Chronic obstructive pulmonary disease, unspecified; F11.23 Opioid dependence with withdrawal; Y90.7 Blood alcohol level of 200-239 mg/100 ml; Z62.810 Personal history of physical and sexual abuse in childhood; F17.210 Nicotine dependence, cigarettes, uncomplicated; F32.9 Major depressive disorder, single episode, unspecified; F43.10 Post-traumatic stress disorder, unspecified; Z86.19 Personal history of other infectious and parasitic diseases; Z91.410 Personal history of adult physical and sexual abuse

== ENCOUNTER 2018-08-11 15:56 | Inpatient (IN) | payer MEDICAID, OTHER ==
[2018-08-11 15:56] VITALS: BMI 26.4
--- NOTE | 2018-08-11 16:29 | C.PDOC ---
History Of Present Illness Patient OSIRIS for evaluation, was found passed out at home after admitted heroin use. Narcan was given intranasally in the field and patient responded. She admits to drinking alcohol today and injecting heroin this afternoon, thinks a neighbor found her passed out. Patient is currently c/o frontal headache, muffled hearing; she is unsure if she fell/has head injury after heroin use. She is not UTD with tetanus vaccination. Time Seen by Provider: 08/11/18 16:02 Chief Complaint (Nursing): Substance Abuse History Per: Patient, EMS History/Exam Limitations: no limitations Onset/Duration Of Symptoms: Hrs Current Symptoms Are (Timing): Better Modifying Factor(s): Alcohol, Narcotics (heroin IVDA) Past Medical History Reviewed: Historical Data, Nursing Documentation, Vital Signs Vital Signs: Last Vital Signs Temp 98.7 F 08/11/18 16:02 Pulse 101 H 08/11/18 16:02 Resp 15 08/11/18 16:02 BP 118/68 08/11/18 16:02 Pulse Ox 90 L 08/11/18 16:02 - Medical History PMH: Anxiety, Asthma, COPD, Depression, Pancreatitis, Post Traumatic Stress Disorder, Seizures (Due to alcohol withdrawal), Sexually Transmitted Disease (Herpes) Comment Only: HIV (SEE NOTE) - [facility] Procedures DETOXIFICATION SERVICES FOR SUBSTANCE ABUSE TREATMENT (03/10/18) GROUP HOSPITAL SECRETARY FOR SUBSTANCE ABUSE TREATMENT, PSYCHOEDUCATION (03/10/18) GROUP HOSPITAL SECRETARY FOR SUBSTANCE ABUSE, COGNITIVE BEHAVIORAL (03/10/18) GROUP PSYCHOTHERAPY (07/03/18) INDIV PSYCHOTHERAPY FOR SUBSTANCE ABUSE TREATMENT, SUPPORT (03/10/18) INDIV PSYCHOTHERAPY FOR SUBSTANCE ABUSE, COGNITIV BEHAVIORAL (03/10/18) INDIV PSYCHOTHERAPY FOR SUBSTANCE ABUSE, MOTIVATION ENHANCE (07/03/18) INDIV PSYCHOTHERAPY FOR SUBSTANCE ABUSE, PSYCHOEDUCATION (03/10/18) INDIVIDUAL PSYCHOTHERAPY, COGNITIVE-BEHAVIORAL (03/10/18) INDIVIDUAL PSYCHOTHERAPY, SUPPORTIVE (07/03/18) MEDS MGMT FOR SUBSTANCE ABUSE TREATMENT, METHADONE MAINT (09/04/16) PHARMACOTHERAPY FOR SUBSTANCE ABUSE TREATMENT, CLONIDINE (07/03/18) PHARMACOTHERAPY FOR SUBSTANCE ABUSE, OTH REPLACE MED (07/03/18) Family History: States: No Known Family Hx - Social History Hx Tobacco Use: Yes Hx Alcohol Use: Yes (whiskey, vodka) Hx Substance Use: Yes (cocaine, heroin) - Immunization History Hx Tetanus Toxoid Vaccination: No Hx Influenza Vaccination: No Hx Pneumococcal Vaccination: No Review Of Systems Constitutional: Negative for: Fever, Chills Cardiovascular: Negative for: Chest Pain, Palpitations Respiratory: Negative for: Shortness of Breath Gastrointestinal: Negative for: Nausea, Vomiting, Abdominal Pain, Diarrhea Neurological: Positive for: Headache Physical Exam - Physical Exam Appears: Non-toxic, In Acute Distress (in mild pain) Skin: Other (left forearm abrasions) Head: Normacephalic Eye(s): bilateral: PERRL, EOMI (no pain with EOM movement), Other (B/L upper eyelid mild ecchymosis) Ear(s): Left: Other (mild erythema vs? mild hemotympanum), Right: Normal Nose: Normal, No Deformity, No Tenderness Oral Mucosa: Moist Tongue: Normal Appearing, No Swelling, No Laceration Lips: Normal Appearing, No Swelling, No Laceration Teeth: Normal Dentition Neck: Normal, Normal ROM, No Midline Cervical Tenderness, No Paracervical Tenderness, No Step Off Deformity, Supple Cardiovascular: Rhythm Regular (mildly tachycardic ) Respiratory: Normal Breath Sounds, No Rales, No Rhonchi, No Wheezing Gastrointestinal/Abdominal: Normal Exam, Bowel Sounds, Soft, No Tenderness Extremity: Normal ROM, No Tenderness, No Deformity, No Swelling Neurological/Psych: Oriented x3, Normal Speech, Normal Cognition ED Course And Treatment - Laboratory Results Result Diagrams: 08/11/18 17:31 08/11/18 17:31 ECG: Interpreted By Me, Viewed By Me (NSR 100 bpm, normal axis, deep T wave inversions III, aVF, no acute ST changes, no U waves ) ECG Interpretation: Abnormal O2 Sat by Pulse Oximetry: 90 (RA) Pulse Ox Interpretation: Abnormal Disposition - Disposition Forms: [employer] (Turkmen)
[2018-08-11] MEDS ORDERED: Tetanus/Diphtheria Toxoids 0.5 ml Syringe IM ONE ×2 (16:33→16:41)
--- NOTE | 2018-08-11 17:06 | RAD ---
Date of service: 08/11/2018 PROCEDURE: CHEST RADIOGRAPH, 1 VIEW HISTORY: HEROIN OD COMPARISON: 11/13/2015 FINDINGS: LUNGS: Clear. PLEURA: No pneumothorax or pleural fluid seen. CARDIOVASCULAR: No aortic atherosclerotic calcification present. Normal. OSSEOUS STRUCTURES: No significant abnormalities. VISUALIZED UPPER ABDOMEN: Normal. OTHER FINDINGS: None. IMPRESSION: No active disease. No interval pathology noted
[2018-08-11 17:39] LABS: BASO % 0.6 % (0.0-2.0); EOS # 0.1 K/uL (0.0-0.7); EOS % 2.2 % (0.0-4.0); HEMOGLOBIN 12.7 g/dL (11.0-16.0); LYMPH # 2.3 K/uL (1.0-4.3); LYMPH % 48.4 % (20.0-40.0); MEAN CELL VOLUME 99.7 fL (81.0-99.0); MEAN CORPUSCULAR HEMOGLOBIN 34.3 pg (27.0-31.0); MEAN CORPUSCULAR HGB CONC 34.4 g/dL (33.0-37.0); MEAN PLATELET VOLUME 7.3 fL (7.2-11.7); MONO # 0.4 K/uL (0.0-0.8); MONO % 9.3 % (0.0-10.0); NEUT # 1.9 K/uL (1.8-7.0); NEUT % 39.5 % (50.0-75.0); NRBC % 0.1 % (0.0-2.0); RBC 3.7 Mil/uL (3.80-5.20); RED CELL DISTRIBUTION WIDTH 15.1 % (11.5-14.5); WHITE BLOOD COUNT 4.7 K/uL (4.8-10.8)
--- NOTE | 2018-08-11 17:39 | CT ---
Date of service: 08/11/2018 PROCEDURE: CT HEAD WITHOUT CONTRAST. HISTORY: head injury r/o bleed COMPARISON: None available. TECHNIQUE: Axial computed tomography images were obtained through the head/brain without intravenous contrast. Radiation dose: Total exam DLP = 1024.9 mGy-cm. This CT exam was performed using one or more of the following dose reduction techniques: Automated exposure control, adjustment of the mA and/or kV according to patient size, and/or use of iterative reconstruction technique. FINDINGS: HEMORRHAGE: No intracranial hemorrhage. BRAIN: No mass effect or edema. No atrophy or chronic microvascular ischemic changes. VENTRICLES: No hydrocephalus. CALVARIUM: Unremarkable. PARANASAL SINUSES: Unremarkable as visualized. No significant inflammatory changes. MASTOID AIR CELLS: Unremarkable as visualized. No inflammatory changes. OTHER FINDINGS: None. IMPRESSION: No acute intracranial pathology identified.
[2018-08-11 17:44] LABS: SQUAMOUS EPITHIAL 1 /hpf (0-5); URINE BACTERIA RARE (<OCC); URINE BILIRUBIN NEGATIVE (NEGATIVE); URINE BLOOD 3+ (NEGATIVE); URINE CLARITY Clear (Clear); URINE COLOR Yellow (YELLOW); URINE GLUCOSE (UA) NORMAL (Normal); URINE LEUKOCYTE ESTERASE NEG Leu/uL (Negative); URINE PROTEIN 2+ mg/dL (NEGATIVE); URINE UROBILINOGEN NORMAL mg/dL (0.2-1.0)
--- NOTE | 2018-08-11 17:51 | CT ---
Date of service: 08/11/2018 CT maxillofacial bones without IV contrast Indication: facial injury r/o fx Comparison: Noncontrast head CT performed 08/11/18 Technique: Axial computed tomography images were obtained of the maxillofacial bones without the use of intravenous contrast. Coronal and sagittal reformatted images were generated and reviewed. This CT exam was performed using 1 or more of the following dose reduction techniques: Automated exposure control, adjustment of the MAA and/or kV according to patient size, and/or use of iterative reconstruction technique. Radiation dose: Total exam DLP = 1041.91 mGy-cm. Findings: Dental streak artifact. The facial bones appear unremarkable without acute displaced fracture. The orbits appear unremarkable. The temporomandibular joints appear located. The mastoid air cells appear clear. Mucosal thickening of the left maxillary sinus and right sphenoid sinus. The remainder of the paranasal sinuses appear otherwise clear. The visualized brain appears unremarkable. The soft tissues appear unremarkable. Impression: No acute displaced fracture identified. Mucosal thickening of the left maxillary sinus and right sphenoid sinus. Correlate clinically for sinusitis.
[2018-08-11 17:54] LABS: BARBITURATES, UR NEGATIVE (NEGATIVE); BENZODIAZEPINES, UR NEGATIVE (NEGATIVE); PHENCYCLIDINE, UR NEGATIVE (NEGATIVE)
[2018-08-11 17:56] LABS: OPIATES, UR POSITIVE (NEGATIVE)
[2018-08-11 18:00] LABS: INR 0.9
[2018-08-11 18:01] LABS: ALB/GLOB RATIO 1.5 (1.0-2.1); ALBUMIN 4.6 g/dL (3.5-5.0); ALT/SGPT 61 U/L (9-52); AST/SGOT 103 U/L (14-36); BLOOD UREA NITROGEN 8 mg/dL (7-17); GFR NON-AFRICAN AMERICAN > 60
[2018-08-11 18:05] LABS: PROTHROMBIN TIME 9.9 SECONDS (9.7-12.2)
[2018-08-11] MEDS ORDERED: Potassium Chloride 20 mEq 100 ML ONE (18:19)
[2018-08-11] MEDS ORDERED: Sodium Chloride 0.9% 1,000 ML IV ONE (18:21)
[2018-08-11] MEDS ORDERED: Potassium Chloride 20 mEq ER Tab PO STA (18:54)
[2018-08-11] MEDS ORDERED: Potassium Chloride 20 mEq ER Tab PO ONE (19:00)
[2018-08-11] MEDS ORDERED: Sodium Chloride 0.9% 1,000 ML ONE (19:00)
[2018-08-11] MEDS ORDERED: Pneumococcal 23-Valent Vaccine IM ONE (20:43)
[2018-08-11] MEDS ORDERED: Influenza Vaccine 60 mcg/0.5 mL SYR (4YR UP) IM ONE (20:44)
[2018-08-11] MEDS ORDERED: Albuterol HFA 90 mcg/actuation (8 g) IH PRN (23:49)
[2018-08-12] MEDS: Morphine 4 MG/ML VIAL IV PRN ×2 (00:29→09:42)
[2018-08-12] MEDS: Enoxaparin 40 mg Syringe SC SCH (10:00)
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
[2018-08-12 12:12] LABS: BLOOD UREA NITROGEN 10 mg/dL (7-17); CALCIUM 8.7 mg/dl (8.6-10.4); GFR NON-AFRICAN AMERICAN > 60
[2018-08-12] MEDS: Multiple Vitamins Tab PO SCH (12:36)
--- NOTE | 2018-08-12 15:13 | CP.PCM.CON ---
<Dominic Coulter - Last Filed: 08/12/18 17:26> History of Present Illness - History of Present Illness History of Present Illness: 38 year old female with a past medical history of anxiety, copd, depression, pancreatitis, ptsd, seizures and poly-substance abuse presents to the emergency room after being found passed out. Patient states she did heroin and drank alcohol prior to episode. Patient was given Narcan in the field and responded. The remainder of the day leading up the event she has a difficulty recalling. She denies any chest pain, shortness of breath ,fevers, chills, nausea, vomiting, dizziness, headaches, syncopal episodes, or any other complaints. Surgical history: Appendectomy Allergies: Penicillins, seafood Medications: Unable to obtain during interview. Social history: Admits to daily heroin abuse. Drinks 3 pints of Vodka daily. Review of Systems - Constitutional Constitutional: absent: Chills, Frequent Falls, Night Sweats, Weakness - EENT Eyes: absent: Blurred Vision, Loss of Peripheral Vision Ears: absent: Ear Discharge Nose/Mouth/Throat: absent: Nasal Congestion, Nose Pain, Bleeding Gums, Mouth Daisy n - Cardiovascular Cardiovascular: absent: Chest Pain, Claudication, Syncope - Respiratory Respiratory: absent: Cough, Dyspnea, Hemoptysis, Change in Mucous Color - Gastrointestinal Gastrointestinal: absent: Belching, Change in Stool Character, Diarrhea, Fecal Incontinence, Loose Stools, Melena, Nausea, Vomiting - Musculoskeletal Musculoskeletal: absent: Arthralgias, Atrophy, Limited Range of Motion, Myalgias, Stiffness - Integumentary Integumentary: absent: Hirsutism, Photosensitivity, Striae, Swelling - Neurological Neurological: absent: Abnormal Hearing, Burning Sensations, Dizziness, Radicular Pain, Vertigo, Weakness - Endocrine Endocrine: absent: Polydipsia, Polyphagia, Polyuria Past Patient History - Infectious Disease Hx of Infectious Diseases: None - Tetanus Immunizations Tetanus Immunization: Unknown - Past Medical History & Family History Past Medical History?: Yes - Past Social History Smoking Status: Heavy Smoker > 10 Cigarettes Daily - CARDIAC Hx Hypertension: No - PULMONARY Hx Asthma: Yes Hx Chronic Obstructive Pulmonary Disease (COPD): Yes - NEUROLOGICAL Hx Seizures: Yes (Due to alcohol withdrawal) - HEENT Hx HEENT Problems: No - RENAL Hx Chronic Kidney Disease: No - ENDOCRINE/METABOLIC Hx Endocrine Disorders: No - HEMATOLOGICAL/ONCOLOGICAL Hx Blood Transfusions: No Hx Human Immunodeficiency Virus (HIV): (SEE NOTE) - INTEGUMENTARY Hx Dermatological Problems: No - MUSCULOSKELETAL/RHEUMATOLOGICAL Hx Falls: No - GASTROINTESTINAL Hx Pancreatitis: Yes - GENITOURINARY/GYNECOLOGICAL Hx Sexually Transmitted Disorders: Yes (Herpes) - PSYCHIATRIC Hx Substance Use: Yes (herroin) - SURGICAL HISTORY Hx Surgeries: Yes Hx Herniorrhaphy: Yes Hx Tubal Ligation: Yes (2 years ago) - ANESTHESIA Hx Anesthesia: Yes Hx Anesthesia Reactions: No Hx Malignant Hyperthermia: No Has any member of the family had a problem w/ anesthesia?: Yes Meds Allergies/Adverse Reactions: Allergies Allergy/AdvReac Type Severity Reaction Status Date / Time Penicillins Allergy ANAPHYLAXIS Verified 08/11/18 16:07 seafood Allergy ANAPHYLAXIS Uncoded 08/11/18 16:07 - Medications Medications: Current Medications Albuterol (Ventolin Hfa 90 Mcg/Actuation (8 G)) 2 puff IH RQ6 PRN PRN Reason: Shortness of Breath Clonidine HCl (Catapres) 0.1 mg PO Q4H PRN PRN Reason: Symptoms of alcohol withdrawl Enoxaparin Sodium (Lovenox) 40 mg SC DAILY PENDING SALE TO [facility] Last Admin: 08/12/18 10:00 Dose: Not Given Folic Acid (Folic Acid) 1 mg PO DAILY [facility]END[facility] Last Admin: 08/12/18 09:37 Dose: 1 mg Gabapentin (Neurontin) 300 mg PO TID [facility] Last Admin: 08/12/18 14:08 Dose: 300 mg Lorazepam (Ativan) 1 mg PO Q6H PRN PRN Reason: Symptoms of alcohol withdrawl Lorazepam (Ativan) 2 mg PO Q8H PENDING SALE [facility]; Taper Stop: 08/17/18 11:59 Last Admin: 08/12/18 12:33 Dose: 2 mg Mirtazapine (Remeron) 15 mg PO HS PENDING SALE TO [facility] Morphine Sulfate (Morphine) 2 mg IV Q6 PRN PRN Reason: withdrawals Last Admin: 08/12/18 09:42 Dose: 2 mg Multivitamins (Hexavitamin) 1 tab PO DAILY [facility] Last Admin: 08/12/18 12:36 Dose: 1 tab Thiamine HCl (Vitamin B1 Tab) 100 mg PO DAILY [facility]END[facility] Last Admin: 08/12/18 09:37 Dose: 100 mg Trazodone HCl (Desyrel) 50 mg PO HS PRN PRN Reason: Insomnia Last Admin: 08/12/18 00:23 Dose: 50 mg Physical Exam - Head Exam Head Exam: ATRAUMATIC, NORMAL INSPECTION - Eye Exam Eye Exam: EOMI, Normal appearance, PERRL Pupil Exam: NORMAL ACCOMODATION - ENT Exam ENT Exam: Mucous Membranes Moist, Normal Oropharynx - Respiratory Exam Respiratory Exam: Clear to Auscultation Bilateral, NORMAL BREATHING PATTERN. absent: Respiratory Distress - Cardiovascular Exam Cardiovascular Exam: REGULAR RHYTHM, +S1, +S2 - GI/Abdominal Exam GI & Abdominal Exam: Normal Bowel Sounds, Soft - Back Exam Back exam: NORMAL INSPECTION. absent: CVA tenderness (R), paraspinal tenderness - Neurological Exam Neurological exam: Alert, CN II-XII Intact, Oriented x3, Reflexes Normal Results - Vital Signs Recent Vital Signs: Last Vital Signs Temp 98.3 F 08/12/18 07:00 Pulse 80 08/12/18 08:00 Resp 20 08/12/18 07:00 BP 116/78 08/12/18 07:00 Pulse Ox 97 08/12/18 07:00 - Labs Result Diagrams: 08/11/18 17:31 08/12/18 11:41 Labs: Laboratory Results - last 24 hr 08/11/18 08/11/18 08/11/18 16:18 17:31 17:31 WBC 4.7 L RBC 3.70 L Hgb 12.7 D Hct 36.8 MCV 99.7 H MCH 34.3 H MCHC 34.4 RDW 15.1 H Plt Count 286 MPV 7.3 Neut % (Auto) 39.5 L Lymph % (Auto) 48.4 H [place] % (Auto) 9.3 Eos % (Auto) 2.2 Baso % (Auto) 0.6 Neut # (Auto) 1.9 Lymph # (Auto) 2.3 [place] # (Auto) 0.4 Eos # (Auto) 0.1 Baso # (Auto) 0.0 PT INR APTT Sodium Potassium Chloride Carbon Dioxide Anion Gap BUN Creatinine Est GFR ( Amer) Est GFR (Non-Af Amer) POC Glucose (mg/dL) 113 H Random Glucose Calcium Total Bilirubin AST ALT Alkaline Phosphatase Total Protein Albumin Globulin Albumin/Globulin Ratio Urine Color Yellow Urine Clarity Clear Urine pH 6.0 Ur Specific [place] 1.005 Urine Protein 2+ H Urine Glucose (UA) Normal Urine Ketones Negative Urine Blood 3+ H Urine Nitrate Negative Urine Bilirubin Negative Urine Urobilinogen Normal Ur Leukocyte Esterase Neg Urine WBC (Auto) 4 Urine RBC (Auto) 20 H Ur Squamous Epith Cells 1 Ur Transition Epith Cell < 1 Urine Bacteria Rare Hyaline Casts 3-5 H Urine HCG, Qual Urine Opiates Screen Urine Methadone Screen Ur Barbiturates Screen Ur Phencyclidine Scrn Ur Amphetamines Screen U Benzodiazepines Scrn U Oth Cocaine Metabols U Cannabinoids Screen 08/11/18 08/11/18 08/11/18 17:31 17:31 17:31 WBC RBC Hgb Hct MCV MCH MCHC RDW Plt Count MPV Neut % (Auto) Lymph % (Auto) [place] % (Auto) Eos % (Auto) Baso % (Auto) Neut # (Auto) Lymph # (Auto) [place] # (Auto) Eos # (Auto) Baso # (Auto) PT 9.9 INR 0.9 APTT 28 Sodium 140 Potassium 2.5 L* D Chloride 99 Carbon Dioxide 24 Anion Gap 20 BUN 8 Creatinine 0.6 L Est GFR ( Amer) > 60 Est GFR (Non-Af Amer) > 60 POC Glucose (mg/dL) Random Glucose 140 H Calcium 9.0 Total Bilirubin 0.4 AST 103 H D ALT 61 H D Alkaline Phosphatase 80 Total Protein 7.7 Albumin 4.6 Globulin 3.1 Albumin/Globulin Ratio 1.5 Urine Color Urine Clarity Urine pH Ur Specific [place] Urine Protein Urine Glucose (UA) Urine Ketones Urine Blood Urine Nitrate Urine Bilirubin Urine Urobilinogen Ur Leukocyte Esterase Urine WBC (Auto) Urine RBC (Auto) Ur Squamous Epith Cells Ur Transition Epith Cell Urine Bacteria Hyaline Casts Urine HCG, Qual Urine Opiates Screen Positive H Urine Methadone Screen Negative Ur Barbiturates Screen Negative Ur Phencyclidine Scrn Negative Ur Amphetamines Screen Negative U Benzodiazepines Scrn Negative U Oth Cocaine Metabols Negative U Cannabinoids Screen Negative 08/11/18 08/12/18 08/12/18 18:37 00:52 11:41 WBC RBC Hgb Hct MCV MCH MCHC RDW Plt Count MPV Neut % (Auto) Lymph % (Auto) [place] % (Auto) Eos % (Auto) Baso % (Auto) Neut # (Auto) Lymph # (Auto) [place] # (Auto) Eos # (Auto) Baso # (Auto) PT INR APTT Sodium 134 Potassium 3.3 L 3.6 Chloride 98 Carbon Dioxide 31 H Anion Gap 9 L BUN 10 Creatinine 0.6 L Est GFR ( Amer) > 60 Est GFR (Non-Af Amer) > 60 POC Glucose (mg/dL) Random Glucose 129 H Calcium 8.7 Total Bilirubin AST ALT Alkaline Phosphatase Total Protein Albumin Globulin Albumin/Globulin Ratio Urine Color Urine Clarity Urine pH Ur Specific [place] Urine Protein Urine Glucose (UA) Urine Ketones Urine Blood Urine Nitrate Urine Bilirubin Urine Urobilinogen Ur Leukocyte Esterase Urine WBC (Auto) Urine RBC (Auto) Ur Squamous Epith Cells Ur Transition Epith Cell Urine Bacteria Hyaline Casts Urine HCG, Qual Negative Urine Opiates Screen Urine Methadone Screen Ur Barbiturates Screen Ur Phencyclidine Scrn Ur Amphetamines Screen U Benzodiazepines Scrn U Oth Cocaine Metabols U Cannabinoids Screen Assessment & Plan - Assessment and Plan (Free Text) Assessment: 38 year old female with a past medical history of anxiety, copd, asthma, depression, pancreatitis, ptsd, and seizures who presents to the hospital s/p syncopal episode Plan: 1.Syncope Likely due to Heroin abuse prior to syncopal episode. -EKG: nsr @100 bpm, T wave in III, aVR -UDS positve for opiates on admission -Echo ordered. Will f/u with results. -Troponin ordered .Will f/u with results. -Carotid duplex ordered .Will f/u with results. 2.etoh abuse Ativan 1mg PO Q6 PRN Ativan 2mg po q8 vinnie Thiamine Multivitamin Folic Acid Clonidine .1mg PO Q4 PRN 3.Asthma -Ventolin 2puff IH RQ6PRN 4.Insomnia -TRAZADONE 50MG po hs prn PPX Lovenox 40sc daily vinnie Plan discussed with Dr. Alcantara. Dominic Coulter, PGY2 <Pro Alcantara - Last Filed: 08/12/18 21:38> Meds - Medications Medications: Current Medications Albuterol (Ventolin Hfa 90 Mcg/Actuation (8 G)) 2 puff IH RQ6 PRN PRN Reason: Shortness of Breath Clonidine HCl (Catapres) 0.1 mg PO Q4H PRN PRN Reason: Symptoms of alcohol withdrawl Enoxaparin Sodium (Lovenox) 40 mg SC DAILY VINNIE Last Admin: 08/12/18 10:00 Dose: Not Given Folic Acid (Folic Acid) 1 mg PO DAILY PENDING SALE TO [facility] Last Admin: 08/12/18 09:37 Dose: 1 mg Gabapentin (Neurontin) 300 mg PO TID [facility]ENDING [facility] Last Admin: 08/12/18 17:55 Dose: 300 mg Lorazepam (Ativan) 1 mg PO Q6H PRN PRN Reason: Symptoms of alcohol withdrawl Lorazepam (Ativan) 2 mg PO Q8H PENDING SALE [facility]; Taper Stop: 08/17/18 11:59 Last Admin: 08/12/18 20:15 Dose: 2 mg Mirtazapine (Remeron) 15 mg PO HS [facility]ENDING SALE [facility] Morphine Sulfate (Morphine) 2 mg IV Q6 PRN PRN Reason: withdrawals Last Admin: 08/12/18 09:42 Dose: 2 mg Multivitamins (Hexavitamin) 1 tab PO DAILY PEND[facility] Last Admin: 08/12/18 12:36 Dose: 1 tab Thiamine HCl (Vitamin B1 Tab) 100 mg PO DAILY PEND[facility] Last Admin: 08/12/18 09:37 Dose: 100 mg Trazodone HCl (Desyrel) 50 mg PO HS PRN PRN Reason: Insomnia Last Admin: 08/12/18 00:23 Dose: 50 mg Results - Vital Signs Recent Vital Signs: Last Vital Signs Temp 98.2 F 08/12/18 15:25 Pulse 100 H 08/12/18 17:15 Resp 18 08/12/18 15:25 BP 108/71 08/12/18 15:25 Pulse Ox 98 08/12/18 15:25 - Labs Result Diagrams: 08/11/18 17:31 08/12/18 11:41 Labs: Laboratory Results - last 24 hr 08/12/18 08/12/18 00:52 11:41 Sodium 134 Potassium 3.6 Chloride 98 Carbon Dioxide 31 H Anion Gap 9 L BUN 10 Creatinine 0.6 L Est GFR ( Amer) > 60 Est GFR (Non-Af Amer) > 60 Random Glucose 129 H Calcium 8.7 Urine HCG, Qual Negative Assessment & Plan - Assessment and Plan (Free Text) Plan: Patient seen and evaluated personally by me. Plan of care d/w the medical r esident and as documented
--- NOTE | 2018-08-12 17:37 | CP.PCM.HP ---
Past Patient History - Infectious Disease Hx of Infectious Diseases: None - Tetanus Immunizations Tetanus Immunization: Unknown - Past Medical History & Family History Past Medical History?: Yes - Past Social History Smoking Status: Heavy Smoker > 10 Cigarettes Daily - CARDIAC Hx Hypertension: No - PULMONARY Hx Asthma: Yes Hx Chronic Obstructive Pulmonary Disease (COPD): Yes - NEUROLOGICAL Hx Seizures: Yes (Due to alcohol withdrawal) - HEENT Hx HEENT Problems: No - RENAL Hx Chronic Kidney Disease: No - ENDOCRINE/METABOLIC Hx Endocrine Disorders: No - HEMATOLOGICAL/ONCOLOGICAL Hx Blood Transfusions: No Hx Human Immunodeficiency Virus (HIV): (SEE NOTE) - INTEGUMENTARY Hx Dermatological Problems: No - MUSCULOSKELETAL/RHEUMATOLOGICAL Hx Falls: No - GASTROINTESTINAL Hx Pancreatitis: Yes - GENITOURINARY/GYNECOLOGICAL Hx Sexually Transmitted Disorders: Yes (Herpes) - PSYCHIATRIC Hx Substance Use: Yes (herroin) - SURGICAL HISTORY Hx Surgeries: Yes Hx Herniorrhaphy: Yes Hx Tubal Ligation: Yes (2 years ago) - ANESTHESIA Hx Anesthesia: Yes Hx Anesthesia Reactions: No Hx Malignant Hyperthermia: No Has any member of the family had a problem w/ anesthesia?: Yes Meds Allergies/Adverse Reactions: Allergies Allergy/AdvReac Type Severity Reaction Status Date / Time Penicillins Allergy ANAPHYLAXIS Verified 08/11/18 16:07 seafood Allergy ANAPHYLAXIS Uncoded 08/11/18 16:07 Results - Vital Signs Recent Vital Signs: Last Vital Signs Temp 98.3 F 08/12/18 07:00 Pulse 80 08/12/18 08:00 Resp 20 08/12/18 07:00 BP 116/78 08/12/18 07:00 Pulse Ox 97 08/12/18 07:00 - Labs Result Diagrams: 08/11/18 17:31 08/12/18 11:41 Labs: Laboratory Results - last 24 hr 08/11/18 08/11/18 08/11/18 17:31 17:31 17:31 WBC 4.7 L RBC 3.70 L Hgb 12.7 D Hct 36.8 MCV 99.7 H MCH 34.3 H MCHC 34.4 RDW 15.1 H Plt Count 286 MPV 7.3 Neut % (Auto) 39.5 L Lymph % (Auto) 48.4 H [place] % (Auto) 9.3 Eos % (Auto) 2.2 Baso % (Auto) 0.6 Neut # (Auto) 1.9 Lymph # (Auto) 2.3 [place] # (Auto) 0.4 Eos # (Auto) 0.1 Baso # (Auto) 0.0 PT INR APTT Sodium 140 Potassium 2.5 L* D Chloride 99 Carbon Dioxide 24 Anion Gap 20 BUN 8 Creatinine 0.6 L Est GFR ( Amer) > 60 Est GFR (Non-Af Amer) > 60 Random Glucose 140 H Calcium 9.0 Total Bilirubin 0.4 AST 103 H D ALT 61 H D Alkaline Phosphatase 80 Total Protein 7.7 Albumin 4.6 Globulin 3.1 Albumin/Globulin Ratio 1.5 Urine Color Yellow Urine Clarity Clear Urine pH 6.0 Ur Specific [place] 1.005 Urine Protein 2+ H Urine Glucose (UA) Normal Urine Ketones Negative Urine Blood 3+ H Urine Nitrate Negative Urine Bilirubin Negative Urine Urobilinogen Normal Ur Leukocyte Esterase Neg Urine WBC (Auto) 4 Urine RBC (Auto) 20 H Ur Squamous Epith Cells 1 Ur Transition Epith Cell < 1 Urine Bacteria Rare Hyaline Casts 3-5 H Urine HCG, Qual Urine Opiates Screen Urine Methadone Screen Ur Barbiturates Screen Ur Phencyclidine Scrn Ur Amphetamines Screen U Benzodiazepines Scrn U Oth Cocaine Metabols U Cannabinoids Screen 08/11/18 08/11/18 08/11/18 17:31 17:31 18:37 WBC RBC Hgb Hct MCV MCH MCHC RDW Plt Count MPV Neut % (Auto) Lymph % (Auto) [place] % (Auto) Eos % (Auto) Baso % (Auto) Neut # (Auto) Lymph # (Auto) [place] # (Auto) Eos # (Auto) Baso # (Auto) PT 9.9 INR 0.9 APTT 28 Sodium Potassium 3.3 L Chloride Carbon Dioxide Anion Gap BUN Creatinine Est GFR ( Amer) Est GFR (Non-Af Amer) Random Glucose Calcium Total Bilirubin AST ALT Alkaline Phosphatase Total Protein Albumin Globulin Albumin/Globulin Ratio Urine Color Urine Clarity Urine pH Ur Specific [place] Urine Protein Urine Glucose (UA) Urine Ketones Urine Blood Urine Nitrate Urine Bilirubin Urine Urobilinogen Ur Leukocyte Esterase Urine WBC (Auto) Urine RBC (Auto) Ur Squamous Epith Cells Ur Transition Epith Cell Urine Bacteria Hyaline Casts Urine HCG, Qual Urine Opiates Screen Positive H Urine Methadone Screen Negative Ur Barbiturates Screen Negative Ur Phencyclidine Scrn Negative Ur Amphetamines Screen Negative U Benzodiazepines Scrn Negative U Oth Cocaine Metabols Negative U Cannabinoids Screen Negative 08/12/18 08/12/18 00:52 11:41 WBC RBC Hgb Hct MCV MCH MCHC RDW Plt Count MPV Neut % (Auto) Lymph % (Auto) [place] % (Auto) Eos % (Auto) Baso % (Auto) Neut # (Auto) Lymph # (Auto) [place] # (Auto) Eos # (Auto) Baso # (Auto) PT INR APTT Sodium 134 Potassium 3.6 Chloride 98 Carbon Dioxide 31 H Anion Gap 9 L BUN 10 Creatinine 0.6 L Est GFR ( Amer) > 60 Est GFR (Non-Af Amer) > 60 Random Glucose 129 H Calcium 8.7 Total Bilirubin AST ALT Alkaline Phosphatase Total Protein Albumin Globulin Albumin/Globulin Ratio Urine Color Urine Clarity Urine pH Ur Specific [place] Urine Protein Urine Glucose (UA) Urine Ketones Urine Blood Urine Nitrate Urine Bilirubin Urine Urobilinogen Ur Leukocyte Esterase Urine WBC (Auto) Urine RBC (Auto) Ur Squamous Epith Cells Ur Transition Epith Cell Urine Bacteria Hyaline Casts Urine HCG, Qual Negative Urine Opiates Screen Urine Methadone Screen Ur Barbiturates Screen Ur Phencyclidine Scrn Ur Amphetamines Screen U Benzodiazepines Scrn U Oth Cocaine Metabols U Cannabinoids Screen
[2018-08-13] MEDS: Morphine 4 MG/ML VIAL IV PRN ×3 (00:06→22:21)
[2018-08-13] MEDS: Enoxaparin 40 mg Syringe SC SCH (09:55)
[2018-08-13] MEDS: Multiple Vitamins Tab PO SCH (09:55)
--- NOTE | 2018-08-13 10:41 | CT ---
Date of service: 08/13/2018 PROCEDURE: CT OF THE TEMPORAL BONES WITHOUT CONTRAST HISTORY: Difficulty hearing COMPARISON: None available. TECHNIQUE: High resolution axial images of the temporal bones were obtained. Coronal and sagittal reformats were generated. Radiation dose: Total exam DLP = 704.86 mGy-cm. This CT exam was performed using one or more of the following dose reduction techniques: Automated exposure control, adjustment of the mA and/or kV according to patient size, and/or use of iterative reconstruction technique. FINDINGS: RIGHT TEMPORAL BONE: RIGHT MIDDLE EAR: The ossicular chain appears within normal limits with no opacification within the middle ear cavity or bony destruction or sclerosis. Scutum is normal. RIGHT INNER EAR: Cochlea: Normal. Semicircular canals: Normal. RIGHT MASTOID AIR CELLS: Normal. RIGHT INTERNAL AUDITORY CANAL: Normal. RIGHT EXTERNAL AUDITORY CANAL: Normal. RIGHT VESTIBULAR AND COCHLEAR AQUEDUCT: Normal. OTHER FINDINGS: None. LEFT TEMPORAL BONE: LEFT MIDDLE EAR: The ossicular chain appears within normal limits with no opacification within the middle ear cavity or bony destruction or sclerosis. The scutum appears normal. LEFT INNER EAR: Cochlea: Normal. Semicircular canals: Normal. LEFT MASTOID AIR CELLS: Normal. LEFT INTERNAL AUDITORY CANAL: Normal. LEFT EXTERNAL AUDITORY CANAL: Normal. LEFT VESTIBULAR AND COCHLEAR AQUEDUCTS: Normal. OTHER FINDINGS: None. IMPRESSION: Unremarkable non contrast enhanced CT of the temporal bones.
--- NOTE | 2018-08-13 12:01 | PCM.PYCHPN ---
Psychiatric Progress Note - Psychiatric Progress Note Patient seen today, length of contact: 15 min Patient Chief Complaint: "Depressed' Problems Identified/Issues Discussed: The pt is seen, chart reviewed, case discussed with staff. The pt is compliant with medications and reports no side-effects. Symptoms are improving but needs more time to stabilize. Support given, psycho-education provided. After care discussed. She is not eligible for our detox as she is now not motivated, and also she AMA'ed back to back in the last two admissions. She can go to a methadone program. Medication Change: Yes (detox changes daily) Medical Record Reviewed: Yes Mental Status Examination - Cognitive Function Orientation: Person, Place, Situation, Time Memory: Intact Attention: WNL Concentration: Poor Association: WNL Fund of Knowledge: WNL - Mood Mood: Depressed, Anxious - Affect Affect: Constricted - Speech Speech: Appropriate - Formal Thought Process Formal Thought Process: No Impairment - Suicidal Ideation Suicidal Ideation: No - Homicidal Ideation Homicidal Ideation: No Goal/Treatment Plan - Goal/Treatment Plan Need for Continued Stay: Severe functional impairment, Other (medical) Progress Toward Problem(s) and Goals/Treatment Plan: Continue medications AD added Support and psychoeducation daily After care planning by TANA - refer to Methadone clinic
--- NOTE | 2018-08-13 16:05 | CARD ---
APPROVED REPORT Date of service: 08/11/2018 EKG Measurement Heart [id number] <Conclusion> Normal sinus rhythm Possible Inferior infarct, age undetermined Abnormal ECG
--- NOTE | 2018-08-13 17:06 | CP.PCM.PN ---
Subjective - Date & Time of Evaluation Date of Evaluation: 08/13/18 Time of Evaluation: 17:06 Objective - Vital Signs/Intake and Output Vital Signs (last 24 hours): Temp Pulse Resp BP Pulse Ox 97.9 F 74 20 127/86 97 08/13/18 15:29 08/13/18 15:29 08/13/18 15:29 08/13/18 15:29 08/13/18 15:29 Intake and Output: 08/13/18 08/13/18 06:59 18:59 Intake Total 480 Balance 480 - Medications Medications: Current Medications Albuterol (Ventolin Hfa 90 Mcg/Actuation (8 G)) 2 puff IH RQ6 PRN PRN Reason: Shortness of Breath Clonidine HCl (Catapres) 0.1 mg PO Q4H PRN PRN Reason: Symptoms of alcohol withdrawl Enoxaparin Sodium (Lovenox) 40 mg SC DAILY [facility] Last Admin: 08/13/18 09:55 Dose: Not Given Escitalopram Oxalate (Lexapro) 5 mg PO DAILY [facility] Last Admin: 08/13/18 13:55 Dose: 5 mg Folic Acid (Folic Acid) 1 mg PO DAILY [facility] Last Admin: 08/13/18 09:55 Dose: 1 mg Gabapentin (Neurontin) 300 mg PO TID [facility] Last Admin: 08/13/18 13:15 Dose: 300 mg Lorazepam (Ativan) 1 mg PO Q6H PRN PRN Reason: Symptoms of alcohol withdrawl Lorazepam (Ativan) 1 mg PO Q6H [facility]; Taper Stop: 08/17/18 11:59 Last Admin: 08/13/18 13:15 Dose: 1 mg Mirtazapine (Remeron) 15 mg PO HS [facility] Last Admin: 08/12/18 21:55 Dose: 15 mg Morphine Sulfate (Morphine) 2 mg IV Q6 PRN PRN Reason: withdrawals Last Admin: 08/13/18 10:00 Dose: 2 mg Multivitamins (Hexavitamin) 1 tab PO DAILY [facility] Last Admin: 08/13/18 09:55 Dose: 1 tab Thiamine HCl (Vitamin B1 Tab) 100 mg PO DAILY [facility] Last Admin: 08/13/18 09:55 Dose: 100 mg Trazodone HCl (Desyrel) 50 mg PO HS PRN PRN Reason: Insomnia Last Admin: 08/12/18 00:23 Dose: 50 mg - Labs Labs: 08/11/18 17:31 08/12/18 11:41 PT 9.9 SECONDS (9.7-12.2) 08/11/18 17:31 INR 0.9 08/11/18 17:31 APTT 28 SECONDS (21-34) 08/11/18 17:31
--- NOTE | 2018-08-13 23:55 | CON ---
DATE: 08/13/2018 REASON FOR CONSULTATION: Left hearing loss and ear pain. HISTORY OF PRESENT ILLNESS: This is a 38-year-old female status post fall, who began having ear pain and hearing loss on the left after the fall two days ago. Ear pain is mild to moderate and constant. The left hearing loss is constant, mild to moderate in intensity. There is no ear discharge. PAST MEDICAL HISTORY: As noted in the chart by me. MEDICATIONS: As noted in the chart by me. ALLERGIES: NOTED IN THE CHART BY ME. PHYSICAL EXAMINATION: HEAD: Atraumatic, normocephalic. FACE: Good facial movements bilaterally. There is ecchymosis of the eyelids. CONSTITUTIONAL: Well fed, well nourished. COMMUNICATION: Communicates well and appropriately. EXTERNAL NOSE AND EARS: No masses. No lesions. No erythema. No edema. INTERNAL NOSE: Deviated septum. No masses. No lesions. No erythema. No edema. EARS: TM intact on the right side with no fluid behind the left ear. The trauma cannot be fully visualized because there is some blood in the ear canal. ORAL CAVITY AND OROPHARYNX: No masses. No lesions. No erythema. No edema. LIPS AND GUMS: No masses. No lesions. No erythema. No edema. NECK: Supple. No thyromegaly. No goiter. LYMPH NODES: No lymphadenopathy of the neck. DIAGNOSTIC DATA: CAT scan was reviewed by me. It is a normal CAT scan of the temporal bone. ASSESSMENT: 1. Hearing loss. 2. Deviated septum. 3. Ear pain is secondary to trauma, hearing loss, most likely secondary to fluid in the ear canal. PLAN: The patient should follow up as an outpatient in the office so I can clean the ear canal and look at the TM. Vinny Newell MD
--- NOTE | 2018-08-14 05:06 | CP.PCM.PN ---
Subjective - Date & Time of Evaluation Date of Evaluation: 08/13/18 Time of Evaluation: 21:10 - Subjective Subjective: Patient seen and examined Denies chest pain and dyspnea Surgical history: Appendectomy Allergies: Penicillins, seafood Medications: Unable to obtain during interview. Social history: Admits to daily heroin abuse. Drinks 3 pints of Vodka daily. Review of Systems - Constitutional Constitutional: absent: Chills, Frequent Falls, Night Sweats, Weakness - EENT Eyes: absent: Blurred Vision, Loss of Peripheral Vision Ears: absent: Ear Discharge Nose/Mouth/Throat: absent: Nasal Congestion, Nose Pain, Bleeding Gums, Mouth Pain - Cardiovascular Cardiovascular: absent: Chest Pain, Claudication, Syncope - Respiratory Respiratory: absent: Cough, Dyspnea, Hemoptysis, Change in Mucous Color - Gastrointestinal Gastrointestinal: absent: Belching, Change in Stool Character, Diarrhea, Fecal Incontinence, Loose Stools, Melena, Nausea, Vomiting - Musculoskeletal Musculoskeletal: absent: Arthralgias, Atrophy, Limited Range of Motion, Myalgias, Stiffness - Integumentary Integumentary: absent: Hirsutism, Photosensitivity, Striae, Swelling - Neurological Neurological: absent: Abnormal Hearing, Burning Sensations, Dizziness, Radicular Pain, Vertigo, Weakness - Endocrine Endocrine: absent: Polydipsia, Polyphagia, Polyuria Physical Exam - Head Exam Head Exam: ATRAUMATIC, NORMAL INSPECTION - Eye Exam Eye Exam: EOMI, Normal appearance, PERRL Pupil Exam: NORMAL ACCOMODATION - ENT Exam ENT Exam: Mucous Membranes Moist, Normal Oropharynx - Respiratory Exam Respiratory Exam: Clear to Auscultation Bilateral, NORMAL BREATHING PATTERN. absent: Respiratory Distress - Cardiovascular Exam Cardiovascular Exam: REGULAR RHYTHM, +S1, +S2 - GI/Abdominal Exam GI & Abdominal Exam: Normal Bowel Sounds, Soft - Back Exam Back exam: NORMAL INSPECTION. absent: CVA tenderness (R), paraspinal tenderness - Neurological Exam Neurological exam: Alert, CN II-XII Intact, Oriented x3, Reflexes Normal Assessment & Plan - Assessment and Plan (Free Text) Assessment: 38 year old female with a past medical history of anxiety, copd, asthma, depression, pancreatitis, ptsd, and seizures who presents to the hospital s/p syncopal episode Plan: 1.Syncope: Unlikley Cardiogenic Likely due to Heroin abuse prior to syncopal episode. -EKG: nsr @100 bpm, T wave in III, aVR -UDS positve for opiates on admission -Echo: Normal -Troponin: Normal -Carotid duplex: Normal 2.etoh abuse Ativan 1mg PO Q6 PRN Ativan 2mg po q8 vinnie Thiamine Multivitamin Folic Acid Clonidine .1mg PO Q4 PRN 3.Asthma -Ventolin 2puff IH RQ6PRN 4.Insomnia -TRAZADONE 50MG po hs prn PPX Lovenox 40sc daily [facility] Objective - Vital Signs/Intake and Output Vital Signs (last 24 hours): Temp Pulse Resp BP Pulse Ox 97.9 F 62 20 113/78 98 08/13/18 23:50 08/14/18 04:06 08/13/18 23:50 08/13/18 23:50 08/13/18 23:50 Intake and Output: 08/13/18 08/14/18 18:59 06:59 Intake Total 350 Balance 350 - Medications Medications: Current Medications Albuterol (Ventolin Hfa 90 Mcg/Actuation (8 G)) 2 puff IH RQ6 PRN PRN Reason: Shortness of Breath Clonidine HCl (Catapres) 0.1 mg PO Q4H PRN PRN Reason: Symptoms of alcohol withdrawl Enoxaparin Sodium (Lovenox) 40 mg SC DAILY [facility] Last Admin: 08/13/18 09:55 Dose: Not Given Escitalopram Oxalate (Lexapro) 5 mg PO DAILY [facility] Last Admin: 08/13/18 13:55 Dose: 5 mg Folic Acid (Folic Acid) 1 mg PO DAILY [facility] Last Admin: 08/13/18 09:55 Dose: 1 mg Gabapentin (Neurontin) 300 mg PO TID [facility] Last Admin: 08/13/18 17:16 Dose: 300 mg Lorazepam (Ativan) 1 mg PO Q6H PRN PRN Reason: Symptoms of alcohol withdrawl Lorazepam (Ativan) 1 mg PO Q6H [facility]; Taper Stop: 08/17/18 11:59 Last Admin: 08/14/18 00:08 Dose: 1 mg Mirtazapine (Remeron) 15 mg PO HS [facility] Last Admin: 08/13/18 20:59 Dose: 15 mg Morphine Sulfate (Morphine) 2 mg IV Q6 PRN PRN Reason: withdrawals Last Admin: 08/13/18 22:21 Dose: 2 mg Multivitamins (Hexavitamin) 1 tab PO DAILY [facility] Last Admin: 08/13/18 09:55 Dose: 1 tab Thiamine HCl (Vitamin B1 Tab) 100 mg PO DAILY [facility] Last Admin: 08/13/18 09:55 Dose: 100 mg Trazodone HCl (Desyrel) 50 mg PO HS PRN PRN Reason: Insomnia Last Admin: 08/12/18 00:23 Dose: 50 mg - Labs Labs: 08/11/18 17:31 08/12/18 11:41 PT 9.9 SECONDS (9.7-12.2) 08/11/18 17:31 INR 0.9 08/11/18 17:31 APTT 28 SECONDS (21-34) 08/11/18 17:31
[2018-08-14 07:59] VITALS: BP 114/72; PULSE 72; RESP 18; TEMP 98.3; O2SAT 95
[2018-08-14] MEDS: Multiple Vitamins Tab PO SCH (09:36)
[2018-08-14] MEDS: Morphine 4 MG/ML VIAL IV PRN (09:40)
[2018-08-14] MEDS: Enoxaparin 40 mg Syringe SC SCH (13:33)
--- NOTE | 2018-08-14 14:19 | CP.PCM.PN ---
Subjective - Date & Time of Evaluation Date of Evaluation: 08/14/18 Time of Evaluation: 14:00 - Subjective Subjective: Patient seen and examined at bedside awake, alert, ox3 , denies any headache, blurred vision , dizziness , N/V echymosis around eye b/l noted vss- stable Objective - Vital Signs/Intake and Output Vital Signs (last 24 hours): Temp Pulse Resp BP Pulse Ox 98.3 F 72 18 114/72 95 08/14/18 07:30 08/14/18 07:30 08/14/18 07:30 08/14/18 07:30 08/14/18 07:30 Intake and Output: 08/14/18 08/14/18 06:59 18:59 Intake Total 730 Balance 730 - Medications Medications: Current Medications Albuterol (Ventolin Hfa 90 Mcg/Actuation (8 G)) 2 puff IH RQ6 PRN PRN Reason: Shortness of Breath Clonidine HCl (Catapres) 0.1 mg PO Q4H PRN PRN Reason: Symptoms of alcohol withdrawl Enoxaparin Sodium (Lovenox) 40 mg SC DAILY [facility] Last Admin: 08/14/18 13:33 Dose: Not Given Escitalopram Oxalate (Lexapro) 5 mg PO DAILY [facility] Last Admin: 08/14/18 09:36 Dose: 5 mg Folic Acid (Folic Acid) 1 mg PO DAILY [facility] Last Admin: 08/14/18 09:36 Dose: 1 mg Gabapentin (Neurontin) 300 mg PO TID [facility] Last Admin: 08/14/18 13:33 Dose: 300 mg Lorazepam (Ativan) 1 mg PO Q6H PRN PRN Reason: Symptoms of alcohol withdrawl Lorazepam (Ativan) 1 mg PO Q8H [facility]; Taper Stop: 08/17/18 11:59 Last Admin: 08/14/18 12:06 Dose: 1 mg Mirtazapine (Remeron) 15 mg PO HS [facility] Last Admin: 08/13/18 20:59 Dose: 15 mg Morphine Sulfate (Morphine) 2 mg IV Q6 PRN PRN Reason: withdrawals Last Admin: 08/14/18 09:40 Dose: 2 mg Multivitamins (Hexavitamin) 1 tab PO DAILY [facility] Last Admin: 08/14/18 09:36 Dose: 1 tab Thiamine HCl (Vitamin B1 Tab) 100 mg PO DAILY [facility] Last Admin: 08/14/18 09:36 Dose: 100 mg Trazodone HCl (Desyrel) 50 mg PO HS PRN PRN Reason: Insomnia Last Admin: 08/12/18 00:23 Dose: 50 mg - Labs Labs: 08/11/18 17:31 08/12/18 11:41 PT 9.9 SECONDS (9.7-12.2) 08/11/18 17:31 INR 0.9 08/11/18 17:31 APTT 28 SECONDS (21-34) 08/11/18 17:31 Assessment and Plan - Assessment and Plan (Free Text) Assessment: A/P 38 yr old female with pmhx of Anxiety, Asthma, COPD, Depression, BIBA for evaluation, was found passed out at home after admitted heroin use. Narcan was given intranasally in the field and patient responded. Dr. Anderson consulted fro detox - not eligible for our detox as she is now not motivated, and also she AMA'ed back to back in the last two admissions. She can go to a methadone program. Dr. Newell consulted for ear pain- recommends f/u out patient D/w Dr. Garrett cleared for discharge home today and f/u with Dr. Barros office patient instructed to f/u methadone clininc states " Rm not interested and I dont want to go - I was on methadone before" discharge plan discussed with patient , who understands and agrees with plan
--- NOTE | 2018-08-14 15:16 | CARD ---
APPROVED REPORT Date of service: 08/13/2018 EXAM: Two-dimensional and M-mode echocardiogram with Doppler and color Doppler. Other Information Quality : GoodRhythm : INDICATION Chest Pain Syncope COPD cocaine abuse / alcohol abuse / hiv 2D DIMENSIONS IVSd0.9 (0.7-1.1cm)LVDd4.3 (3.9-5.9cm) PWd0.8 (0.7-1.1cm)LA Hmbilb72 (18-58mL) LVDs2.7 (2.5-4.0cm)FS (%) 38.1 % LVEF (%)68.6 (>50%)LVEF (Hernandez's)53.98 % M-Mode DIMENSIONS Left Atrium (MM)3.89 (2.5-4.0cm)IVSd0.81 (0.7-1.1cm) Aortic Root3.23 (2.2-3.7cm)LVDd4.91 (4.0-5.6cm) Aortic Cusp Exc.2.24 (1.5-2.0cm)PWd0.59 (0.7-1.1cm) FS (%) 37 %LVDs3.08 (2.0-3.8cm) LVEF (%)67 (>50%) Aortic Valve AI P 1/2 [id number] Mitral Valve MV E Wlhjuujz42.8cm/sMV A Ceejrzoh34.6cm/sE/A ratio1.1 TDI Lateral E' Peak V12.34cm/sMedial E' Peak V8.80cm/sE/Lateral E'5.6 E/Medial E'7.8 Tricuspid Valve TR Peak [id number]/sTR Peak Gr.[id number] LEFT VENTRICLE The left ventricle is normal size. There is normal left ventricular wall thickness. The left ventricular function is normal. The left ventricular ejection fraction is within the normal range. No regional wall motion abnormalities noted. The left ventricular diastolic function is normal. No left ventricle thrombus noted on this study. There is no ventricular septal defect visualized. There is no left ventricular aneurysm. There is no mass noted in the left ventricle. RIGHT VENTRICLE The right ventricle is normal size. There is normal right ventricular wall thickness. The right ventricular systolic function is normal. ATRIA The left atrium volume is mildly increased The right atrium size is normal. The interatrial septum is intact with no evidence for an atrial septal defect. AORTIC VALVE The aortic valve is normal in structure and function. There is mild aortic regurgitation. There is no aortic valvular stenosis. There is no aortic valvular vegetation. MITRAL VALVE The mitral valve is normal in structure and function. There is no evidence of mitral valve prolapse. There is no mitral valve stenosis. There is no mitral valve regurgitation noted. TRICUSPID VALVE The tricuspid valve is normal in structure and function. There is mild tricuspid regurgitation. Right ventricular systolic pressure is estimated at less than 30 mmHg. There is no pulmonary hypertension. There is no tricuspid valve prolapse or vegetation. There is no tricuspid valve stenosis. PULMONIC VALVE The pulmonary valve is normal in structure and function. There is no pulmonic valvular regurgitation. There is no pulmonic valvular stenosis. GREAT VESSELS The aortic root is normal in size. The ascending aorta is normal in size. The pulmonary artery is normal. The IVC is normal in size and collapses >50% with inspiration. PERICARDIAL EFFUSION The pericardium appears normal. There is no pleural effusion. <Conclusion> The left ventricular function is normal. The left ventricular ejection fraction is within the normal range. No regional wall motion abnormalities noted. The left atrium volume is mildly increased There is mild aortic regurgitation.
--- NOTE | 2018-08-16 20:43 | VASCLAB ---
Date of service: 08/13/2018 PROCEDURE: Carotid Duplex Exam. HISTORY: syncope COMPARISON: None available. TECHNIQUE: Grayscale and duplex Doppler evaluation of the cervical carotid and vertebral arteries were performed. The common carotid, carotid bifurcations and cervical Internal Carotid Artery (ICA) and proximal External Carotid Artery (ECA) were evaluated. The vertebral arteries were evaluated for gross patency and flow direction. Report prepared by Vance Pope, BS, RVT FINDINGS: RIGHT CAROTID ARTERIES: 1. Common Carotid Artery: No significant focal plaque formation of the right common carotid artery. Maximum Peak Systolic velocity: 74 cm/sec: End-diastolic velocity 30 cm/sec. 2. Carotid Bifurcation: No significant plaque formation. Maximum Peak Systolic velocity: 59 cm/sec: End-diastolic velocity 22 cm/sec. 3. Internal Carotid Artery: No significant focal plaque. 3.1. Proximal Segment: Peak systolic velocity 60 cm/sec: End-diastolic velocity 31 cm/sec - % stenosis 0-15% 3.2. Middle Segment: Peak systolic velocity 80 cm/sec: End-diastolic velocity 37 cm/sec - % stenosis 0-15% 3.3. Distal Segment: Peak systolic velocity 67 cm/sec: End-diastolic velocity 36 cm/sec - % stenosis 0-15% 4. External Carotid Artery: No significant focal plaque formation. Peak systolic velocity 67 cm/sec 5. ICA/CCA Ratio: 1.1 LEFT CAROTID ARTERIES: 1. Common Carotid Artery: No significant focal plaque formation of the left common carotid artery. Maximum Peak Systolic velocity: 71 cm/sec: End-diastolic velocity 27 cm/sec. 2. Carotid Bifurcation: No significant focal plaque formation. Maximum Peak Systolic velocity: 65 cm/sec: End-diastolic velocity 24 cm/sec. 3. Internal Carotid Artery: No significant focal plaque. 3.1. Proximal Segment: Peak systolic velocity 78 cm/sec: End-diastolic velocity 34 cm/sec - % stenosis 0-15% 3.2. Middle Segment: Peak systolic velocity 71 cm/sec: End-diastolic velocity 31 cm/sec - % stenosis 0-15% 3.3. Distal Segment: Peak systolic velocity 57 cm/sec: End-diastolic velocity 27 cm/sec - % stenosis 0-15% 4. External Carotid Artery: No significant focal plaque formation. Peak systolic velocity 66 cm/sec 5. ICA/CCA Ratio: 1.1 VERTEBRAL ARTERIES: 1. Right Vertebral Artery: The right vertebral artery flow direction is antegrade. 2. Left Vertebral Artery: The left vertebral artery flow direction is antegrade. OTHER FINDINGS: 1. Right Brachial Blood pressure: 132 mmHg. 2. Left Brachial Blood pressure: 120 mmHg. 3. No atherosclerotic calcification present IMPRESSION: RIGHT: Duplex scan does not suggest hemodynamically significant stenosis of the right extracranial carotid arteries. LEFT: Duplex scan does not suggest hemodynamically significant stenosis of the left extracranial carotid arteries.
== END 2018-08-14 15:35 | disposition home or self-care (01) | DRG 744 ==
LOC: C.ER 15:56 → C.6T 18:28
PROVIDERS: ADMIT Internal Medicine Critical Care Medicine; ATTEND Internal Medicine Critical Care Medicine
PROC: HZ56ZZZ Individual Psychotherapy for Substance Abuse Treatment, Psychoeducation (ICD-10-PCS; principal; 2018-08-13)
PROC: HZ59ZZZ Individual Psychotherapy for Substance Abuse Treatment, Supportive (ICD-10-PCS; 2018-08-13)
DX: F11.20 Opioid dependence, uncomplicated (principal); J44.9 Chronic obstructive pulmonary disease, unspecified; Z21 Asymptomatic human immunodeficiency virus [HIV] infection status; F10.230 Alcohol dependence with withdrawal, uncomplicated; F14.20 Cocaine dependence, uncomplicated; Y90.9 Presence of alcohol in blood, level not specified; F32.9 Major depressive disorder, single episode, unspecified; F43.10 Post-traumatic stress disorder, unspecified; F17.210 Nicotine dependence, cigarettes, uncomplicated; F60.9 Personality disorder, unspecified; F41.1 Generalized anxiety disorder; J34.2 Deviated nasal septum; H91.92 Unspecified hearing loss, left ear; R55 Syncope and collapse; G47.00 Insomnia, unspecified; Z86.19 Personal history of other infectious and parasitic diseases; Z90.49 Acquired absence of other specified parts of digestive tract

== ENCOUNTER 2018-08-21 19:05 | Inpatient (IN) | payer OTHER ==
[2018-08-21 19:05] VITALS: BMI 26.4
--- NOTE | 2018-08-21 20:07 | C.PDOC ---
History Of Present Illness 38yo female, comes to ER reporting pain and numbness to her right lower extremity. Patient states around 3pm, she was drinking alcohol and used heroin, and fell asleep after. She reports upon waking up around 7pm, she felt numbness to her right leg and felt "cramping" to her posterior right thigh. She denies any known trauma or injury. No chest pain, shortness of breath, or other complaints. PMD: Dr. Barros Time Seen by Provider: 08/21/18 19:48 Chief Complaint (Nursing): Substance Abuse History Per: Patient History/Exam Limitations: no limitations Onset/Duration Of Symptoms: Hrs (1) Current Symptoms Are (Timing): Still Present Additional History Per: Patient Past Medical History Reviewed: Historical Data, Nursing Documentation, Vital Signs Vital Signs: Last Vital Signs Temp 97.7 F 08/21/18 19:14 Pulse 115 H 08/21/18 19:14 Resp 22 08/21/18 19:14 BP 95/57 L 08/21/18 19:14 Pulse Ox 94 L 08/21/18 19:14 - Medical History PMH: Anxiety, Asthma, COPD, Depression, Pancreatitis, Post Traumatic Stress Disorder, Seizures (Due to alcohol withdrawal), Sexually Transmitted Disease (Herpes) Denies: Diabetes, Hepatitis, HTN, Chronic Kidney Disease Comment Only: HIV (SEE NOTE) - [facility] Procedures DETOXIFICATION SERVICES FOR SUBSTANCE ABUSE TREATMENT (03/10/18) GROUP MANAGER INTEGRATED FOR SUBSTANCE ABUSE TREATMENT, PSYCHOEDUCATION (03/10/18) GROUP MANAGER INTEGRATED FOR SUBSTANCE ABUSE, COGNITIVE BEHAVIORAL (03/10/18) GROUP PSYCHOTHERAPY (07/03/18) INDIV PSYCHOTHERAPY FOR SUBSTANCE ABUSE TREATMENT, SUPPORT (08/11/18) INDIV PSYCHOTHERAPY FOR SUBSTANCE ABUSE, COGNITIV BEHAVIORAL (03/10/18) INDIV PSYCHOTHERAPY FOR SUBSTANCE ABUSE, MOTIVATION ENHANCE (07/03/18) INDIV PSYCHOTHERAPY FOR SUBSTANCE ABUSE, PSYCHOEDUCATION (08/11/18) INDIVIDUAL PSYCHOTHERAPY, COGNITIVE-BEHAVIORAL (03/10/18) INDIVIDUAL PSYCHOTHERAPY, SUPPORTIVE (07/03/18) MEDS MGMT FOR SUBSTANCE ABUSE TREATMENT, METHADONE MAINT (09/04/16) PHARMACOTHERAPY FOR SUBSTANCE ABUSE TREATMENT, CLONIDINE (07/03/18) PHARMACOTHERAPY FOR SUBSTANCE ABUSE, OTH REPLACE MED (07/03/18) Family History: States: Unknown Family Hx - Social History Hx Tobacco Use: Yes Hx Alcohol Use: Yes (vodka, 3 pints a day) Hx Substance Use: Yes (heroin) - Immunization History Hx Tetanus Toxoid Vaccination: No Hx Influenza Vaccination: No Hx Pneumococcal Vaccination: No Review Of Systems Except As Marked, All Systems Reviewed And Found Negative. Cardiovascular: Negative for: Chest Pain Respiratory: Negative for: Shortness of Breath Physical Exam - Physical Exam Additional Physical Exam Comments: Constitutional: No acute distress. Head: Normocephalic. Atraumatic. Eyes: PERRL. ENT: Moist mucous membranes. Neck: Supple. Cardiovascular: Regular rate. Radial pulse 2+ bilaterally. Chest: No tenderness. Respiratory: Clear to auscultation bilaterally. GI: Soft. Nontender. Nondistended. Back: No CVA tenderness. Musculoskeletal: No tenderness or swelling of extremities. No focal tenderness noted to posterior right thigh. Skin: No rash. Neurologic: Alert. Diminished light touch sensation to lower right leg. + right foot drop ED Course And Treatment - Laboratory Results Result Diagrams: 08/21/18 20:22 08/21/18 20:22 O2 Sat by Pulse Oximetry: 94 (RA) Medical Decision Making Medical Decision Mak[place] female with complaints of numbness to right lower extremity Plan: -- Labs -- CXR -- EKG CK elevated. IVF started. Dr. Garrett accepts patient to his service. Disposition - Disposition Disposition: HOSPITALIZED Disposition Time: 22:00 Condition: GUARDED - Clinical Impression Clinical Impression: Rhabdomyolysis, Nerve palsy - Scribe Statement The provider has reviewed the documentation as recorded by the Jaron Randolph Provider Attestation: All medical record entries made by the Jaron were at my direction and personally dictated by me. I have reviewed the chart and agree that the record accurately reflects my personal performance of the history, physical exam, medical decision making, and the department course for this patient. I have also personally directed, reviewed, and agree with the discharge instructions and disposition.
[2018-08-21 20:32] LABS: BASO # 0.1 K/uL (0.0-0.2); BASO % 0.6 % (0.0-2.0); HEMOGLOBIN 10.8 g/dL (11.0-16.0); LYMPH # 0.7 K/uL (1.0-4.3); MEAN CORPUSCULAR HEMOGLOBIN 34.1 pg (27.0-31.0); MEAN CORPUSCULAR HGB CONC 33.2 g/dL (33.0-37.0); MEAN PLATELET VOLUME 6.8 fL (7.2-11.7); MONO # 0.9 K/uL (0.0-0.8); MONO % 9.1 % (0.0-10.0); NEUT # 7.9 K/uL (1.8-7.0); NEUT % 83.3 % (50.0-75.0); NRBC % 0.1 % (0.0-2.0); RBC 3.16 Mil/uL (3.80-5.20); RED CELL DISTRIBUTION WIDTH 16.2 % (11.5-14.5); WHITE BLOOD COUNT 9.5 K/uL (4.8-10.8)
[2018-08-21 20:38] LABS: MEAN CELL VOLUME 102.5 fL (81.0-99.0); PLATELET COUNT 412 K/uL (130-400)
[2018-08-21 21:05] LABS: ALB/GLOB RATIO 1.3 (1.0-2.1); ALBUMIN 4.2 g/dL (3.5-5.0); ALT/SGPT 84 U/L (9-52); AST/SGOT 201 U/L (14-36); BLOOD UREA NITROGEN 14 mg/dL (7-17); GFR NON-AFRICAN AMERICAN 55
[2018-08-21 22:34] LABS: BANDS 6 % (0-2); BASOPHIL 1 % (0-2); LYMPHOCYTE 13 % (20-40); MONOCYTE 6 % (0-10); NEUTROPHIL 74 % (50-75); TOTAL CELLS COUNTED 100
[2018-08-21 22:35] LABS: ANISOCYTOSIS SLIGHT; PLATELET ESTIMATE SLIGHTLY INCREASED (NORMAL); POIKILOCYTOSIS SLIGHT
[2018-08-21] MEDS ORDERED: Sodium Chloride 0.9% 1,000 ML IV ONE (22:42)
[2018-08-21] MEDS: Sodium Chloride 0.45% 1,000 ML IV SCH (23:45)
[2018-08-22] MEDS ORDERED: Pneumococcal 23-Valent Vaccine SC ONE (04:35)
[2018-08-22] MEDS: Sodium Chloride 0.45% 1,000 ML IV SCH ×3 (08:15→21:29)
[2018-08-22] MEDS ORDERED: Influenza Vaccine 60 mcg/0.5 mL SYR (4YR UP) IM ONE (08:55)
[2018-08-22] MEDS: Enoxaparin 40 mg Syringe SC SCH (10:08)
--- NOTE | 2018-08-22 13:25 | RAD ---
Date of service: 08/21/2018 HISTORY: leg numbness COMPARISON: Comparison is made with the previous study dated 08/11/2018 FINDINGS: LUNGS: No active pulmonary disease. PLEURA: No significant pleural effusion identified, no pneumothorax apparent. CARDIOVASCULAR: No aortic atherosclerotic calcification present. Normal cardiac size. No pulmonary vascular congestion. OSSEOUS STRUCTURES: No significant abnormalities. VISUALIZED UPPER ABDOMEN: Normal. OTHER FINDINGS: None. IMPRESSION: No active disease.
--- NOTE | 2018-08-22 13:47 | CP.PCM.HP ---
History of Present Illness - History of Present Illness History of Present Illness: 38yo female, comes to ER reporting pain and numbness to her right lower extremity. Patient states around 3pm, she was drinking alcohol and used heroin, and fell asleep after. She reports upon waking up around 7pm, she felt numbness to her right leg and felt "cramping" to her posterior right thigh. She denies any known trauma or injury. No chest pain, shortness of breath, or other complaints. Present on Admission - Present on Admission Any Indicators Present on Admission: No Review of Systems - Review of Systems All systems: reviewed and no additional remarkable complaints except (as mentioned in HPI) Past Patient History - Infectious Disease Hx of Infectious Diseases: None - Tetanus Immunizations Tetanus Immunization: Unknown - Past Medical History & Family History Past Medical History?: Yes - Past Social History Smoking Status: Heavy Smoker > 10 Cigarettes Daily - CARDIAC Hx Hypertension: No - PULMONARY Hx Asthma: Yes Hx Chronic Obstructive Pulmonary Disease (COPD): Yes - NEUROLOGICAL Hx Seizures: Yes (Due to alcohol withdrawal) - HEENT Hx HEENT Problems: No - RENAL Hx Chronic Kidney Disease: No - ENDOCRINE/METABOLIC Hx Endocrine Disorders: No - HEMATOLOGICAL/ONCOLOGICAL Hx Human Immunodeficiency Virus (HIV): (SEE NOTE) - INTEGUMENTARY Hx Dermatological Problems: No - MUSCULOSKELETAL/RHEUMATOLOGICAL Hx Falls: No - GASTROINTESTINAL Hx Pancreatitis: Yes - GENITOURINARY/GYNECOLOGICAL Hx Sexually Transmitted Disorders: Yes (Herpes) - PSYCHIATRIC Hx Anxiety: Yes Hx Depression: Yes Hx Post Traumatic Stress Disorder: Yes Hx Substance Use: Yes (heroin) - SURGICAL HISTORY Hx Surgeries: Yes Hx Herniorrhaphy: Yes Hx Tubal Ligation: Yes (2 years ago) - ANESTHESIA Hx Anesthesia: Yes Hx Anesthesia Reactions: No Hx Malignant Hyperthermia: No Meds Allergies/Adverse Reactions: Allergies Allergy/AdvReac Type Severity Reaction Status Date / Time Penicillins Allergy ANAPHYLAXIS Verified 08/21/18 19:16 seafood Allergy ANAPHYLAXIS Uncoded 08/21/18 19:16 Physical Exam - Head Exam Head Exam: NORMAL INSPECTION - Eye Exam Eye Exam: Normal appearance - ENT Exam ENT Exam: Mucous Membranes Moist - Respiratory Exam Respiratory Exam: Clear to Auscultation Bilateral - Cardiovascular Exam Cardiovascular Exam: REGULAR RHYTHM, +S1, +S2 - GI/Abdominal Exam GI & Abdominal Exam: Normal Bowel Sounds, Soft - Extremities Exam Extremities exam: Positive for: normal inspection Results - Vital Signs Recent Vital Signs: Last Vital Signs Temp 98.0 F 08/22/18 07:00 Pulse 78 08/22/18 07:00 Resp 18 08/22/18 07:00 BP 131/87 08/22/18 07:00 Pulse Ox 96 08/22/18 07:00 - Labs Result Diagrams: 08/21/18 20:22 08/21/18 20:22 Labs: Laboratory Results - last 24 hr 08/21/18 08/21/18 08/22/18 20:22 20:22 06:17 WBC 9.5 D RBC 3.16 L Hgb 10.8 L Hct 32.4 L MCV 102.5 H D MCH 34.1 H MCHC 33.2 RDW 16.2 H Plt Count 412 H D MPV 6.8 L Neut % (Auto) 83.3 H Lymph % (Auto) 7.0 L [place] % (Auto) 9.1 Eos % (Auto) 0.0 Baso % (Auto) 0.6 Neut # (Auto) 7.9 H Lymph # (Auto) 0.7 L [place] # (Auto) 0.9 H Eos # (Auto) 0.0 Baso # (Auto) 0.1 Neutrophils % (Manual) 74 Band Neutrophils % 6 H Lymphocytes % (Manual) 13 L Monocytes % (Manual) 6 Basophils % (Manual) 1 Platelet Estimate Slightly increased H Poikilocytosis (manual Slight Anisocytosis (manual) Slight Macrocytosis (manual) Slight Sodium 140 Potassium 4.7 Chloride 110 H Carbon Dioxide 22 Anion Gap 14 BUN 14 Creatinine 1.1 Est GFR ( Amer) > 60 Est GFR (Non-Af Amer) 55 Random Glucose 49 L D Calcium 8.0 L Total Bilirubin 0.3 AST 201 H D ALT 84 H D Alkaline Phosphatase 70 Total Creatine Kinase 4203 H 70741 H Total Protein 7.4 Albumin 4.2 Globulin 3.2 Albumin/Globulin Ratio 1.3 Beta HCG, Quant < 2.39 Alcohol, Quantitative 45 H Assessment & Plan (1) Nerve palsy Status: Acute (2) Rhabdomyolysis Status: Acute (3) Alcohol dependence Status: Acute (4) Opioid use disorder, severe, dependence Status: Acute - Assessment and Plan (Free Text) Plan: Neurology consult May need MRI IVF Follow CPK's Follow Cr Thiamine Folate Observe for signs of withdrawl DVT/GI prophalaxis
--- NOTE | 2018-08-22 17:47 | CP.PCM.CON ---
History of Present Illness - History of Present Illness History of Present Illness: Neurology Consultation Note: Consult requested by Dr. Power Ms. Bhatti is a 38-year-old woman who states she used heroin and fell asleep or "passed out". She does not know how long she was out for, but when she woke up, she had severe right buttock, hip groin and leg pain with weakness and numbness of the right lower extremity. Currently, she is not able to flex the hip and cannot more her right leg distally. She claims that she has no sensation below the knee and all she feels is tingling of the upper thigh region along with severe pain. Review of Systems - Constitutional Constitutional: As Per HPI - EENT Eyes: absent: As Per HPI, Blind Spots, Blurred Vision, Change in Vision, Decreased Night Vision, Diplopia, Discharge, Dry Eye, Exophthalmos, Floaters, Irritation, Itchy Eyes, Loss of Peripheral Vision, Pain, Photophobia, Requires Corrective Lenses, Sees Flashes, Spots in Vision, Tunnel Vision, Other Visual Disturbances, Loss of Vision, Other Ears: absent: As Per HPI, Decreased Hearing, Ear Discharge, Ear Pain, Tinnitus, Abnormal Hearing, Disequilibrium, Dizziness, Other Nose/Mouth/Throat: absent: As Per HPI, Epistaxis, Nasal Congestion, Nasal Discha rge, Nasal Obstruction, Nasal Trauma, Nose Pain, Post Nasal Drip, Sinus Pain, Sinus Pressure, Bleeding Gums, Change in Voice, Dental Pain, Dry Mouth, Dysphagia, Halitosis, Hoarsness, Lip Swelling, Mouth Lesions, Mouth Pain, Odynophagia, Sore Throat, Throat Swelling, Tongue Swelling, Facial Pain, Neck Pain, Neck Mass, Other - Cardiovascular Cardiovascular: absent: As Per HPI, Acrocyanosis, Chest Pain, Chest Pain at Rest, Chest Pain with Activity, Claudication, Diaphoresis, Dyspnea, Dyspnea on Exertion, Edema, Irregular Heart Rhythm, Pain Radiating to Arm/Neck/Jaw, Leg Edema, Leg Ulcers, Lightheadedness, Orthopnea, Palpitations, Paroxysmal Nocturnal Dyspnea, Pedal Edema, Radiating Pain, Rapid Heart Rate, Slow Heart Rate, Syncope, Other - Respiratory Respiratory: absent: As Per HPI, Cough, Dyspnea, Hemoptysis, Dyspnea on Exertion, Wheezing, Snoring, Stridor, Pain on Inspiration, Chest Congestion, Excessive Mucous Production, Change in Mucous Color, Pain with Coughing, Other - Gastrointestinal Gastrointestinal: absent: As Per HPI, Abdominal Pain, Belching, Bloating, Change in Bowel Habits, Change in Stool Character, Coffee Ground Emesis, Constipation, Cramping, Diarrhea, Dyspepsia, Dysphagia, Early Satiety, Excessive Flatus, Fecal Incontinence, Heartburn, Hematemesis, Hematochezia, Loose Stools, Melena, Nausea, Odynophagia, Temesmus, Vomiting, Other - Musculoskeletal Musculoskeletal: As Per HPI - Integumentary Integumentary: absent: As Per HPI, Acne, Alopecia, Bleeding Lesions, Change in Hair, Change in Nails, Change in Pigmentation, Changing Lesions, Dry Skin, Erythema, Furuncle, Hirsutism, Lesions, New Lesions, Non-Healing Lesions, Photosensitivity, Pruritus, Rash, Skin Pain, Skin Ulcer, Sores, Striae, Swelling, Unusual Bruising, Wounds, Jaundice, Other - Neurological Neurological: As Per HPI - Psychiatric Psychiatric: absent: As Per HPI, Abnormal Sleep Pattern, Anhedonia, Anxiety, Auditory Hallucinations, Behavioral Changes, Change in Appetite, Change in Libido, Confusion, Depression, Difficulty Concentrating, Hallucinations, Homicidal Ideation, Hopelessness, Irritability, Memory Loss, Mood Swings, Panic Attacks, Paranoia, Suicidal Ideation, Visual Hallucinations, Tactile Hallucinations, Other - Endocrine Endocrine: absent: As Per HPI, Change in Body Appearance, Change in Libido, Cold Intolorance, Deepening of Voice, Excessive Sweating, Fatigue, Flushing, Heat Intolorance, Increase in Ring/Shoe/Hat Size, Palpitations, Polydipsia, Polyphagia, Polyuria, Other Past Patient History - Infectious Disease Hx of Infectious Diseases: None - Tetanus Immunizations Tetanus Immunization: Unknown - Past Medical History & Family History Past Medical History?: Yes - Past Social History Smoking Status: Heavy Smoker > 10 Cigarettes Daily - CARDIAC Hx Hypertension: No - PULMONARY Hx Asthma: Yes Hx Chronic Obstructive Pulmonary Disease (COPD): Yes - NEUROLOGICAL Hx Seizures: Yes (Due to alcohol withdrawal) - HEENT Hx HEENT Problems: No - RENAL Hx Chronic Kidney Disease: No - ENDOCRINE/METABOLIC Hx Endocrine Disorders: No - HEMATOLOGICAL/ONCOLOGICAL Hx Human Immunodeficiency Virus (HIV): (SEE NOTE) - INTEGUMENTARY Hx Dermatological Problems: No - MUSCULOSKELETAL/RHEUMATOLOGICAL Hx Falls: No - GASTROINTESTINAL Hx Pancreatitis: Yes - GENITOURINARY/GYNECOLOGICAL Hx Sexually Transmitted Disorders: Yes (Herpes) - PSYCHIATRIC Hx Anxiety: Yes Hx Depression: Yes Hx Post Traumatic Stress Disorder: Yes Hx Substance Use: Yes (heroin) - SURGICAL HISTORY Hx Surgeries: Yes Hx Herniorrhaphy: Yes Hx Tubal Ligation: Yes (2 years ago) - ANESTHESIA Hx Anesthesia: Yes Hx Anesthesia Reactions: No Hx Malignant Hyperthermia: No Meds Allergies/Adverse Reactions: Allergies Allergy/AdvReac Type Severity Reaction Status Date / Time Penicillins Allergy ANAPHYLAXIS Verified 08/21/18 19:16 seafood Allergy ANAPHYLAXIS Uncoded 08/21/18 19:16 - Medications Medications: Current Medications Chlordiazepoxide (Librium) 25 mg PO Q6H PRN PRN Reason: Agitation Last Admin: 08/22/18 15:40 Dose: 25 mg Enoxaparin Sodium (Lovenox) 40 mg SC DAILY [facility] Last Admin: 08/22/18 10:08 Dose: 40 mg Gabapentin (Neurontin) 300 mg PO TID [facility] Last Admin: 08/22/18 13:37 Dose: 300 mg Sodium Chloride (Sodium Chloride 0.45%) 1,000 mls @ 250 mls/hr IV .Q4H [facility] Mirtazapine (Remeron) 15 mg PO HS [facility] Morphine Sulfate (Morphine) 2 mg IVP Q6 PRN PRN Reason: pain Last Admin: 08/22/18 16:11 Dose: 2 mg Trazodone HCl (Desyrel) 50 mg PO HS PRN PRN Reason: Insomnia Physical Exam - Constitutional Appears: Well, In Acute Distress - Head Exam Head Exam: ATRAUMATIC, NORMAL INSPECTION, NORMOCEPHALIC - Eye Exam Eye Exam: EOMI, Normal appearance, PERRL Pupil Exam: NORMAL ACCOMODATION, PERRL - ENT Exam ENT Exam: Mucous Membranes Moist, Normal Exam - Neck Exam Neck exam: Positive for: Normal Inspection - Respiratory Exam Respiratory Exam: Clear to Auscultation Bilateral, NORMAL BREATHING PATTERN - Cardiovascular Exam Cardiovascular Exam: REGULAR RHYTHM, +S1, +S2 - GI/Abdominal Exam GI & Abdominal Exam: Normal Bowel Sounds, Soft. absent: Tenderness - Extremities Exam Extremities exam: Positive for: normal inspection - Back Exam Back exam: NORMAL INSPECTION - Neurological Exam Neurological exam: Alert, CN II-XII Intact, Oriented x3 Additional comments: Tension and swelling of right thigh region. Tender to touch. Unable to flex hip or knee. [id number] movement is painful. Reflexes are diminished at L3/4 and S1. - Psychiatric Exam Psychiatric exam: Normal Affect, Normal Mood - Skin Skin Exam: Dry, Intact, Normal Color, Warm Results - Vital Signs Recent Vital Signs: Last Vital Signs Temp 98.4 F 08/22/18 15:46 Pulse 69 08/22/18 15:46 Resp 22 08/22/18 15:46 BP 131/72 08/22/18 15:46 Pulse Ox 97 08/22/18 15:46 - Labs Result Diagrams: 08/21/18 20:22 08/21/18 20:22 Labs: Laboratory Results - last 24 hr 08/21/18 08/21/18 08/22/18 20:22 20:22 06:17 WBC 9.5 D RBC 3.16 L Hgb 10.8 L Hct 32.4 L MCV 102.5 H D MCH 34.1 H MCHC 33.2 RDW 16.2 H Plt Count 412 H D MPV 6.8 L Neut % (Auto) 83.3 H Lymph % (Auto) 7.0 L [place] % (Auto) 9.1 Eos % (Auto) 0.0 Baso % (Auto) 0.6 Neut # (Auto) 7.9 H Lymph # (Auto) 0.7 L [place] # (Auto) 0.9 H Eos # (Auto) 0.0 Baso # (Auto) 0.1 Neutrophils % (Manual) 74 Band Neutrophils % 6 H Lymphocytes % (Manual) 13 L Monocytes % (Manual) 6 Basophils % (Manual) 1 Platelet Estimate Slightly increased H Poikilocytosis (manual Slight Anisocytosis (manual) Slight Macrocytosis (manual) Slight Sodium 140 Potassium 4.7 Chloride 110 H Carbon Dioxide 22 Anion Gap 14 BUN 14 Creatinine 1.1 Est GFR ( Amer) > 60 Est GFR (Non-Af Amer) 55 Random Glucose 49 L D Calcium 8.0 L Total Bilirubin 0.3 AST 201 H D ALT 84 H D Alkaline Phosphatase 70 Total Creatine Kinase 4203 H 65207 H Total Protein 7.4 Albumin 4.2 Globulin 3.2 Albumin/Globulin Ratio 1.3 Beta HCG, Quant < 2.39 Alcohol, Quantitative 45 H Assessment & Plan (1) Peripheral neuropathy Assessment and Plan: This appears to be compressive from increased pressure and swelling due to possible compartment syndrome. I recommend stat surgical evaluation for possible surgical decompression. MRI of the limb and thigh region would be helpful. Gabapentin may be helpful for the neuropathic pain. However, kidney function should be monitored closely. Thank you for this consultation. Status: Acute
--- NOTE | 2018-08-22 19:48 | CP.PCM.CON ---
History of Present Illness - History of Present Illness History of Present Illness: Surgery Consult: Dr. Pérez Pt is a 38F with PMHx significant for asthma, COPD, Hep C and IVDA/EtOH abuse who presents to s/p fall yesterday. Pt states she became dizzy and was going to the bathroom in the dark when she fell and loss consciousness. She does not recall hitting her head but states she must have been down for a few hours. When she woke up she states she was unable to move her R leg with significant pain in the R hip[place] [address] [place] 4203 and pt continues to have pain mostly in the R hip. she states her R leg feels heavy and she is unable to have any sensation below the knee. She admits to some numbness and tingling around her knee. Denies any other complaints. Surgery called to [facility] for compartment syndrome. Currently, pt is resting in bed with complaints of pain mostly in the R hip and groin. She admits to IVDA with heroin and states the last time she used was last week. Admits to daily alcohol use. Denies other complaints at this time. Denies fevers/chills, chest pain or SOB. PMHx: as listed above PSHx: R inguinal hernia rx, tubal ligation SocialHx: PPD x 20 yrs, IVDA w/heroin, EtOH abuse FamHx: non-contributory All: PCN Review of Systems - Review of Systems All systems: reviewed and no additional remarkable complaints except (as per HPI) Past Patient History - Infectious Disease Hx of Infectious Diseases: None - Tetanus Immunizations Tetanus Immunization: Unknown - Past Medical History & Family History Past Medical History?: Yes - Past Social History Smoking Status: Heavy Smoker > 10 Cigarettes Daily - CARDIAC Hx Hypertension: No - PULMONARY Hx Asthma: Yes Hx Chronic Obstructive Pulmonary Disease (COPD): Yes - NEUROLOGICAL Hx Seizures: Yes (Due to alcohol withdrawal) - HEENT Hx HEENT Problems: No - RENAL Hx Chronic Kidney Disease: No - ENDOCRINE/METABOLIC Hx Endocrine Disorders: No - HEMATOLOGICAL/ONCOLOGICAL Hx Human Immunodeficiency Virus (HIV): (SEE NOTE) - INTEGUMENTARY Hx Dermatological Problems: No - MUSCULOSKELETAL/RHEUMATOLOGICAL Hx Falls: No - GASTROINTESTINAL Hx Pancreatitis: Yes - GENITOURINARY/GYNECOLOGICAL Hx Sexually Transmitted Disorders: Yes (Herpes) - PSYCHIATRIC Hx Anxiety: Yes Hx Depression: Yes Hx Post Traumatic Stress Disorder: Yes Hx Substance Use: Yes (heroin) - SURGICAL HISTORY Hx Surgeries: Yes Hx Herniorrhaphy: Yes Hx Tubal Ligation: Yes (2 years ago) - ANESTHESIA Hx Anesthesia: Yes Hx Anesthesia Reactions: No Hx Malignant Hyperthermia: No Meds Allergies/Adverse Reactions: Allergies Allergy/AdvReac Type Severity Reaction Status Date / Time Penicillins Allergy ANAPHYLAXIS Verified 08/21/18 19:16 seafood Allergy ANAPHYLAXIS Uncoded 08/21/18 19:16 - Medications Medications: Current Medications Chlordiazepoxide (Librium) 25 mg PO Q6H PRN PRN Reason: Agitation Last Admin: 08/22/18 15:40 Dose: 25 mg Enoxaparin Sodium (Lovenox) 40 mg SC DAILY [facility] Last Admin: 08/22/18 10:08 Dose: 40 mg Gabapentin (Neurontin) 300 mg PO TID [facility] Last Admin: 08/22/18 18:06 Dose: 300 mg Sodium Chloride (Sodium Chloride 0.45%) 1,000 mls @ 250 mls/hr IV .Q4H [facility] Last Admin: 08/22/18 18:06 Dose: 250 mls/hr Mirtazapine (Remeron) 15 mg PO HS [facility] Morphine Sulfate (Morphine) 2 mg IVP Q6 PRN PRN Reason: pain Last Admin: 08/22/18 16:11 Dose: 2 mg Trazodone HCl (Desyrel) 50 mg PO HS PRN PRN Reason: Insomnia Physical Exam - Constitutional Appears: Well, No Acute Distress - Head Exam Head Exam: ATRAUMATIC, NORMOCEPHALIC - Eye Exam Eye Exam: Normal appearance - ENT Exam ENT Exam: Mucous Membranes Moist - Respiratory Exam Respiratory Exam: NORMAL BREATHING PATTERN - Cardiovascular Exam Cardiovascular Exam: RRR - GI/Abdominal Exam GI & Abdominal Exam: Soft. absent: Tenderness - Extremities Exam Additional comments: RLE: toes cool to touch, absent motor/sensory below knee, all four compartments soft with no tenderness on passive range of motion, 2+ DP/PT LLE: normal exam - Neurological Exam Neurological exam: Alert, Oriented x3 - Skin Skin Exam: Dry, Warm Results - Vital Signs Recent Vital Signs: Last Vital Signs Temp 98.4 F 08/22/18 15:46 Pulse 69 08/22/18 15:46 Resp 22 08/22/18 15:46 BP 131/72 08/22/18 15:46 Pulse Ox 97 08/22/18 15:46 - Labs Result Diagrams: 08/21/18 20:22 08/21/18 20:22 Labs: Laboratory Results - last 24 hr 08/21/18 08/21/18 08/22/18 20:22 20:22 06:17 WBC 9.5 D RBC 3.16 L Hgb 10.8 L Hct 32.4 L MCV 102.5 H D MCH 34.1 H MCHC 33.2 RDW 16.2 H Plt Count 412 H D MPV 6.8 L Neut % (Auto) 83.3 H Lymph % (Auto) 7.0 L [place] % (Auto) 9.1 Eos % (Auto) 0.0 Baso % (Auto) 0.6 Neut # (Auto) 7.9 H Lymph # (Auto) 0.7 L [place] # (Auto) 0.9 H Eos # (Auto) 0.0 Baso # (Auto) 0.1 Neutrophils % (Manual) 74 Band Neutrophils % 6 H Lymphocytes % (Manual) 13 L Monocytes % (Manual) 6 Basophils % (Manual) 1 Platelet Estimate Slightly increased H Poikilocytosis (manual Slight Anisocytosis (manual) Slight Macrocytosis (manual) Slight Sodium 140 Potassium 4.7 Chloride 110 H Carbon Dioxide 22 Anion Gap 14 BUN 14 Creatinine 1.1 Est GFR ( Amer) > 60 Est GFR (Non-Af Amer) 55 Random Glucose 49 L D Calcium 8.0 L Total Bilirubin 0.3 AST 201 H D ALT 84 H D Alkaline Phosphatase 70 Total Creatine Kinase 4203 H 43261 H Total Protein 7.4 Albumin 4.2 Globulin 3.2 Albumin/Globulin Ratio 1.3 Beta HCG, Quant < 2.39 Alcohol, Quantitative 45 H Assessment & Plan - Assessment and Plan (Free Text) Assessment: 38F with RLE pain/paralysis s/p fall; r/o compartment syndrome Plan: - all compartments soft with 2+ DP/PT pulses in RLE - compartment pressures in RLE checked in the thigh as well as leg and all found to be below 30mmHg - cont to monitor closely - IVF hydration - monitor Is&Os - d/w Dr. Beto Ray
[2018-08-23] MEDS: Sodium Chloride 0.45% 1,000 ML IV SCH ×4 (01:50→09:02)
[2018-08-23 07:44] LABS: HEMOGLOBIN 10.5 g/dL (11.0-16.0); MEAN CELL VOLUME 101.6 fL (81.0-99.0); MEAN CORPUSCULAR HEMOGLOBIN 34.2 pg (27.0-31.0); MEAN CORPUSCULAR HGB CONC 33.6 g/dL (33.0-37.0); MEAN PLATELET VOLUME 7.7 fL (7.2-11.7); RBC 3.09 Mil/uL (3.80-5.20); RED CELL DISTRIBUTION WIDTH 15.2 % (11.5-14.5)
[2018-08-23 07:47] LABS: WHITE BLOOD COUNT 4.3 K/uL (4.8-10.8)
[2018-08-23 08:08] LABS: ALB/GLOB RATIO 1.2 (1.0-2.1); ALBUMIN 3.3 g/dL (3.5-5.0); ALT/SGPT 167 U/L (9-52); AST/SGOT 530 U/L (14-36); BLOOD UREA NITROGEN 5 mg/dL (7-17); CALCIUM 7.8 mg/dl (8.6-10.4); GFR NON-AFRICAN AMERICAN > 60
--- NOTE | 2018-08-23 08:48 | CP.PCM.PN ---
Subjective - Date & Time of Evaluation Date of Evaluation: 08/23/18 Time of Evaluation: 08:45 - Subjective Subjective: SURGERY NOTE FOR DR. RODRIGEZ 38F seen and examined at bedside. No acute events overnight. Patient states she fell before admission and does not remember how long she was down. Currently she complains of right hip pain, decreased sensation of the right leg form the knee to the toes. She denies motor dysfunction. Objective - Vital Signs/Intake and Output Vital Signs (last 24 hours): Temp Pulse Resp BP Pulse Ox 99.2 F 70 20 136/84 94 L 08/23/18 04:42 08/23/18 04:42 08/23/18 04:42 08/23/18 04:42 08/23/18 04:42 Intake and Output: 08/23/18 08/23/18 06:59 18:59 Intake Total 1999 2119 Output Total 1499 Balance 1999 620 - Medications Medications: Current Medications Chlordiazepoxide (Librium) 25 mg PO Q6H PRN PRN Reason: Agitation Last Admin: 08/22/18 21:28 Dose: 25 mg Enoxaparin Sodium (Lovenox) 40 mg SC DAILY [facility] Last Admin: 08/22/18 10:08 Dose: 40 mg Gabapentin (Neurontin) 300 mg PO TID [facility] Last Admin: 08/22/18 18:06 Dose: 300 mg Sodium Chloride (Sodium Chloride 0.45%) 1,000 mls @ 250 mls/hr IV .Q4H [facility] Last Admin: 08/23/18 05:50 Dose: Not Given Mirtazapine (Remeron) 15 mg PO HS [facility] Last Admin: 08/22/18 21:28 Dose: 15 mg Morphine Sulfate (Morphine) 2 mg IVP Q4H PRN PRN Reason: pain Last Admin: 08/23/18 04:51 Dose: 2 mg Trazodone HCl (Desyrel) 50 mg PO HS PRN PRN Reason: Insomnia - Labs Labs: 08/23/18 07:38 08/23/18 07:38 - Constitutional Appears: Non-toxic, No Acute Distress - Respiratory Exam Respiratory Exam: Clear to Ausculation Bilateral, NORMAL BREATHING PATTERN - Cardiovascular Exam Cardiovascular Exam: REGULAR RHYTHM, +S1, +S2 - GI/Abdominal Exam GI & Abdominal Exam: Soft. absent: Distended, Firm, Guarding, Rigid, Tenderness, Rebound - Extremities Exam Extremities Exam: absent: Pedal Edema, Tenderness Additional comments: Right thigh and calf are all soft on palpation, No tenderness on palpation, no pain on passive movement of all joint in right lower leg decrease sensation from the right knee to right toes, normal motor function No signs of external trauma Normal left leg examination - Neurological Exam Neurological Exam: Alert, Awake - Skin Skin Exam: Dry, Intact, Normal Color, Warm Assessment and Plan - Assessment and Plan (Free Text) Assessment: 38F with right lower leg numbness, also with Rhabdomyolysis No compartment syndrome. Likely nerve compression from fall Plan: - per Neurology, patient may need MRI for further evaluation - Continue fluids - monitor kidney fuinction - No surgical intervention Further recs per Dr. Beto Hebert, PGY3
[2018-08-23] MEDS: Enoxaparin 40 mg Syringe SC SCH (09:01)
--- NOTE | 2018-08-23 09:29 | CP.PCM.CON ---
History of Present Illness - History of Present Illness History of Present Illness: RENAL CONSULT consult for Dipti 38-year-old woman w/ hx of drug use used heroin day prior to admission and "passed out." She is unclear how long she was on the ground for but awoke w/ severe R leg/buttoc pain w/ numbess in the RLE. She initially was unable to move her toes at all. She was found to have DIPTI and rhabdo and admitted for further eval. She was seen by neurosurgery and surgery to r/o compartment syndrome. ros; a full detailed ros is negative except as in my hpi famhx: no esrd in family sochx: as below medsa: as below all: pcn pe: VS as below gen: nad sclera anicteric op clear neck: supple cv: +S1+s2 no rub lungs cta b/l abd: Soft nt nd no organomegaly ext: no edema neuro: A+Ox3 weakness in RLE psych: nml affect skin no rash labs and imaging reviewed imp: ARF/ Rhabdomylosis/ Anemia/ Hypomagnesemia DIPTI is improving - likely from rhabdo - will change fluids from hypotonic to isotonic saline at 200 cc / hr and asked RN to monitor i/o should continue to improve rhabdo: likely from prolonged state of being down +/- compression muscles RLE +/- drug/etoh. Continue to monitor daily cpk - improving at this point will start po mag anemia work up per primary Past Patient History - Infectious Disease Hx of Infectious Diseases: None - Tetanus Immunizations Tetanus Immunization: Unknown - Past Medical History & Family History Past Medical History?: Yes - Past Social History Smoking Status: Heavy Smoker > 10 Cigarettes Daily - CARDIAC Hx Hypertension: No - PULMONARY Hx Asthma: Yes Hx Chronic Obstructive Pulmonary Disease (COPD): Yes - NEUROLOGICAL Hx Seizures: Yes (Due to alcohol withdrawal) - HEENT Hx HEENT Problems: No - RENAL Hx Chronic Kidney Disease: No - ENDOCRINE/METABOLIC Hx Endocrine Disorders: No - HEMATOLOGICAL/ONCOLOGICAL Hx Human Immunodeficiency Virus (HIV): (SEE NOTE) - INTEGUMENTARY Hx Dermatological Problems: No - MUSCULOSKELETAL/RHEUMATOLOGICAL Hx Falls: No - GASTROINTESTINAL Hx Pancreatitis: Yes - GENITOURINARY/GYNECOLOGICAL Hx Sexually Transmitted Disorders: Yes (Herpes) - PSYCHIATRIC Hx Anxiety: Yes Hx Depression: Yes Hx Post Traumatic Stress Disorder: Yes Hx Substance Use: Yes (heroin) - SURGICAL HISTORY Hx Surgeries: Yes Hx Herniorrhaphy: Yes Hx Tubal Ligation: Yes (2 years ago) - ANESTHESIA Hx Anesthesia: Yes Hx Anesthesia Reactions: No Hx Malignant Hyperthermia: No Meds Allergies/Adverse Reactions: Allergies Allergy/AdvReac Type Severity Reaction Status Date / Time Penicillins Allergy ANAPHYLAXIS Verified 08/21/18 19:16 seafood Allergy ANAPHYLAXIS Uncoded 08/21/18 19:16 - Medications Medications: Current Medications Chlordiazepoxide (Librium) 25 mg PO Q6H PRN PRN Reason: Agitation Last Admin: 08/22/18 21:28 Dose: 25 mg Enoxaparin Sodium (Lovenox) 40 mg SC DAILY [facility] Last Admin: 08/23/18 09:01 Dose: 40 mg Gabapentin (Neurontin) 300 mg PO TID [facility] Last Admin: 08/23/18 09:01 Dose: 300 mg Sodium Chloride (Sodium Chloride 0.45%) 1,000 mls @ 250 mls/hr IV .Q4H [facility] Last Admin: 08/23/18 09:02 Dose: 250 mls/hr Sodium Chloride (Sodium Chloride 0.9%) 1,000 mls @ 200 mls/hr IV .Q5H [facility] Mirtazapine (Remeron) 15 mg PO HS [facility] Last Admin: 08/22/18 21:28 Dose: 15 mg Morphine Sulfate (Morphine) 2 mg IVP Q4H PRN PRN Reason: pain Last Admin: 08/23/18 08:57 Dose: 2 mg Trazodone HCl (Desyrel) 50 mg PO HS PRN PRN Reason: Insomnia Results - Vital Signs Recent Vital Signs: Last Vital Signs Temp 99.2 F 08/23/18 04:42 Pulse 70 08/23/18 04:42 Resp 20 08/23/18 04:42 BP 136/84 08/23/18 04:42 Pulse Ox 94 L 08/23/18 04:42 - Labs Result Diagrams: 08/23/18 07:38 08/23/18 07:38 Labs: Laboratory Results - last 24 hr 08/22/18 08/23/18 08/23/18 19:20 07:38 07:38 WBC 4.3 L D RBC 3.09 L Hgb 10.5 L Hct 31.4 L MCV 101.6 H MCH 34.2 H MCHC 33.6 RDW 15.2 H Plt Count 270 D MPV 7.7 Sodium 134 Potassium 3.7 Chloride 104 Carbon Dioxide 26 Anion Gap 7 L BUN 5 L Creatinine 0.6 L Est GFR ( Amer) > 60 Est GFR (Non-Af Amer) > 60 Random Glucose 88 D Calcium 7.8 L Phosphorus 2.8 Magnesium 1.5 L Total Bilirubin 0.3 AST 530 H D ALT 167 H D Alkaline Phosphatase 67 Total Creatine Kinase 09549 H 43331 H Total Protein 5.9 L Albumin 3.3 L D Globulin 2.7 Albumin/Globulin Ratio 1.2
[2018-08-23] MEDS: Sodium Chloride 0.9% 1,000 ML IV SCH ×2 (09:30→21:21)
[2018-08-23] MEDS: Magnesium Oxide 400 mg Tab UD PO SCH ×2 (10:01→17:16)
--- NOTE | 2018-08-23 13:16 | RAD ---
Date of service: 08/22/2018 PROCEDURE: Radiographs of the Lumbar Spine. HISTORY: right hip and low back pain COMPARISON: No prior. FINDINGS: BONES: Normal alignment. No listhesis. No fracture. DISC SPACES: Unremarkable. OTHER FINDINGS: None. IMPRESSION: Unremarkable radiographs of the lumbar spine.
--- NOTE | 2018-08-23 13:43 | CP.PCM.PN ---
Subjective - Date & Time of Evaluation Date of Evaluation: 08/23/18 Time of Evaluation: 13:42 - Subjective Subjective: Pt is seen and examined Improving Rhabdo Objective - Vital Signs/Intake and Output Vital Signs (last 24 hours): Temp Pulse Resp BP Pulse Ox 99.2 F 63 18 116/76 96 08/23/18 07:30 08/23/18 07:30 08/23/18 07:30 08/23/18 07:30 08/23/18 07:30 Intake and Output: 08/23/18 08/23/18 06:59 18:59 Intake Total 1999 2119 Output Total 1499 Balance 1999 620 - Medications Medications: Current Medications Chlordiazepoxide (Librium) 25 mg PO Q6H PRN PRN Reason: Agitation Last Admin: 08/22/18 21:28 Dose: 25 mg Enoxaparin Sodium (Lovenox) 40 mg SC DAILY [facility] Last Admin: 08/23/18 09:01 Dose: 40 mg Gabapentin (Neurontin) 300 mg PO TID [facility] Last Admin: 08/23/18 13:19 Dose: 300 mg Sodium Chloride (Sodium Chloride 0.9%) 1,000 mls @ 200 mls/hr IV .Q5H [facility] Last Admin: 08/23/18 09:30 Dose: 200 mls/hr Magnesium Oxide (Mag-Ox) 400 mg PO BID [facility] Last Admin: 08/23/18 10:01 Dose: 400 mg Mirtazapine (Remeron) 15 mg PO HS [facility] Last Admin: 08/22/18 21:28 Dose: 15 mg Morphine Sulfate (Morphine) 2 mg IVP Q4H PRN PRN Reason: pain Last Admin: 08/23/18 13:21 Dose: 2 mg Trazodone HCl (Desyrel) 50 mg PO HS PRN PRN Reason: Insomnia - Labs Labs: 08/23/18 07:38 08/23/18 07:38 - Head Exam Head Exam: NORMAL INSPECTION - Eye Exam Eye Exam: Normal appearance - ENT Exam ENT Exam: Mucous Membranes Moist - Respiratory Exam Respiratory Exam: Clear to Ausculation Bilateral - Cardiovascular Exam Cardiovascular Exam: REGULAR RHYTHM, +S1, +S2 - GI/Abdominal Exam GI & Abdominal Exam: Soft, Normal Bowel Sounds - Extremities Exam Extremities Exam: Normal Inspection Assessment and Plan (1) Nerve palsy Status: Acute (2) Rhabdomyolysis Status: Acute (3) Alcohol dependence Status: Acute (4) Opioid use disorder, severe, dependence Status: Acute - Assessment and Plan (Free Text) Plan: IVF Follow CPK's Thiamine Folate Surgery/Neurology/Nephrology Consult's appreciated DVT/GI prophalaxis
--- NOTE | 2018-08-23 18:38 | CP.PCM.PN ---
Subjective - Date & Time of Evaluation Date of Evaluation: 08/23/18 Time of Evaluation: 18:33 - Subjective Subjective: Neurology Progress Note: Ms. Bhatti was seen and examined today at bedside. She has more movement of her RLE, and the pain appears to be better as well. She has regained some sensation in the leg and thigh region. There were no acute events overnight. She was evaluated for compartment syndrome, and the pressures appear to be in normal range. Currently, being treated for rhabdo. Objective - Vital Signs/Intake and Output Vital Signs (last 24 hours): Temp Pulse Resp BP Pulse Ox 98.4 F 105 H 20 112/72 99 08/23/18 16:00 08/23/18 16:00 08/23/18 16:00 08/23/18 16:00 08/23/18 16:00 Intake and Output: 08/23/18 08/23/18 06:59 18:59 Intake Total 2000 4200 Output Total 3300 Balance 2000 900 - Medications Medications: Current Medications Chlordiazepoxide (Librium) 25 mg PO Q6H PRN PRN Reason: Agitation Last Admin: 08/22/18 21:28 Dose: 25 mg Enoxaparin Sodium (Lovenox) 40 mg SC DAILY [facility] Last Admin: 08/23/18 09:01 Dose: 40 mg Gabapentin (Neurontin) 300 mg PO TID [facility] Last Admin: 08/23/18 17:16 Dose: 300 mg Sodium Chloride (Sodium Chloride 0.9%) 1,000 mls @ 200 mls/hr IV .Q5H [facility] Last Admin: 08/23/18 09:30 Dose: 200 mls/hr Magnesium Oxide (Mag-Ox) 400 mg PO BID [facility] Last Admin: 08/23/18 17:16 Dose: 400 mg Mirtazapine (Remeron) 15 mg PO HS [facility] Last Admin: 08/22/18 21:28 Dose: 15 mg Morphine Sulfate (Morphine) 2 mg IVP Q4H PRN PRN Reason: pain Last Admin: 08/23/18 17:17 Dose: 2 mg Trazodone HCl (Desyrel) 50 mg PO HS PRN PRN Reason: Insomnia - Labs Labs: 08/23/18 07:38 08/23/18 07:38 - Constitutional Appears: Well - Head Exam Head Exam: ATRAUMATIC, NORMAL INSPECTION, NORMOCEPHALIC - Eye Exam Eye Exam: EOMI, Normal appearance, PERRL Pupil Exam: NORMAL ACCOMODATION, PERRL - ENT Exam ENT Exam: Mucous Membranes Moist, Normal Exam - Neck Exam Neck Exam: Full ROM, Normal Inspection. absent: Lymphadenopathy - Respiratory Exam Respiratory Exam: Clear to Ausculation Bilateral, NORMAL BREATHING PATTERN - Cardiovascular Exam Cardiovascular Exam: REGULAR RHYTHM, +S1, +S2. absent: Murmur - GI/Abdominal Exam GI & Abdominal Exam: Soft, Normal Bowel Sounds. absent: Tenderness - Rectal Exam Rectal Exam: NORMAL INSPECTION - Exam Exam: Circumcision, NORMAL INSPECTION External exam: NORMAL EXTERNAL EXAM Speculum exam: NORMAL SPECULUM EXAM Bimanual exam: NORMAL BIMANUAL EXAM - Extremities Exam Extremities Exam: Full ROM, Normal Capillary Refill, Normal Inspection. absent: Joint Swelling, Pedal Edema - Back Exam Back Exam: NORMAL INSPECTION - Neurological Exam Neurological Exam: Abnormal Gait, Alert, Awake, CN II-XII Intact, Oriented x3 Neuro motor strength exam: Left Upper Extremity: 5, Right Upper Extremity: 5, Left Lower Extremity: 3, Right Lower Extremity: 5 Additional comments: Reflexes are still diminished at L3/4 - Psychiatric Exam Psychiatric exam: Normal Affect, Normal Mood - Skin Skin Exam: Dry, Intact, Normal Color, Warm Assessment and Plan (1) Peripheral neuropathy Assessment & Plan: Likely compressive due to prolonged sedation from heroin use. It appears to be in the femoral nerve distribution. MRI of the right hip and thigh region without contrast is recommended. Continue Neurontin 300 mg TID. Status: Acute
[2018-08-24] MEDS: Sodium Chloride 0.9% 1,000 ML IV SCH ×7 (00:15→21:03)
--- NOTE | 2018-08-24 08:03 | CP.PCM.PN ---
Subjective - Date & Time of Evaluation Date of Evaluation: 08/24/18 Time of Evaluation: 09:19 - Subjective Subjective: Patient awake and conscious In acute distress Vital signs stable Objective - Vital Signs/Intake and Output Vital Signs (last 24 hours): Temp Pulse Resp BP Pulse Ox 98.1 F 62 20 141/87 95 08/24/18 04:37 08/24/18 04:37 08/24/18 04:37 08/24/18 04:37 08/24/18 04:37 Intake and Output: 08/24/18 08/24/18 06:59 18:59 Intake Total 4060 Output Total 2955 Balance 1105 - Medications Medications: Current Medications Chlordiazepoxide (Librium) 25 mg PO Q6H PRN PRN Reason: Agitation Last Admin: 08/22/18 21:28 Dose: 25 mg Enoxaparin Sodium (Lovenox) 40 mg SC DAILY [facility] Last Admin: 08/23/18 09:01 Dose: 40 mg Gabapentin (Neurontin) 300 mg PO TID [facility] Last Admin: 08/23/18 17:16 Dose: 300 mg Sodium Chloride (Sodium Chloride 0.9%) 1,000 mls @ 200 mls/hr IV .Q5H [facility] Last Admin: 08/24/18 05:30 Dose: Not Given Magnesium Oxide (Mag-Ox) 400 mg PO BID [facility] Last Admin: 08/23/18 17:16 Dose: 400 mg Mirtazapine (Remeron) 15 mg PO HS [facility] Last Admin: 08/23/18 21:20 Dose: 15 mg Morphine Sulfate (Morphine) 2 mg IVP Q4H PRN PRN Reason: pain Last Admin: 08/24/18 05:31 Dose: 2 mg Trazodone HCl (Desyrel) 50 mg PO HS PRN PRN Reason: Insomnia - Labs Labs: 08/23/18 07:38 08/23/18 07:38 - Constitutional Appears: No Acute Distress - Eye Exam Eye Exam: Conjunctival injection - ENT Exam ENT Exam: Mucous Membranes Moist - Respiratory Exam Respiratory Exam: NORMAL BREATHING PATTERN. absent: Chest Wall Tenderness - Cardiovascular Exam Cardiovascular Exam: absent: Gallop, JVD, Rubs - GI/Abdominal Exam GI & Abdominal Exam: Soft, Normal Bowel Sounds - Extremities Exam Extremities Exam: absent: Calf Tenderness - Back Exam Back Exam: absent: CVA tenderness (L), CVA tenderness (R) - Neurological Exam Neurological Exam: Alert - Psychiatric Exam Psychiatric exam: Normal Affect - Skin Skin Exam: absent: Cyanosis Assessment and Plan (1) Rhabdomyolysis Assessment & Plan: imp: Rhabdomylosis/ Anemia/ Hypomagnesemia Plan Patient is stable continue gentle hydration Kidney function is stable CPK trending down Repeat serum magnesium pending from this morning, if still low patient need magnesium supplement Status: Acute
[2018-08-24] MEDS: Magnesium Oxide 400 mg Tab UD PO SCH ×2 (09:36→17:17)
[2018-08-24] MEDS: Enoxaparin 40 mg Syringe SC SCH (09:37)
--- NOTE | 2018-08-24 09:40 | CARD ---
APPROVED REPORT Date of service: 08/21/2018 EKG Measurement Heart [id number] <Conclusion> Normal sinus rhythm Cannot rule out Anterior infarct, age undetermined Abnormal ECG
--- NOTE | 2018-08-24 15:57 | CP.PCM.PN ---
Subjective - Date & Time of Evaluation Date of Evaluation: 08/24/18 Time of Evaluation: 15:54 - Subjective Subjective: Neuro Follow-Up Note: Ms. Bhatti was evaluated this afternoon at bedside. She still complains of right lower leg weakness with decreased movement and lower back pain that radiates to her right buttock. She states the pain is "ok" now and is comfortable. She also admits to "pimples on my right arm" that are itching; noticed them about 2 days ago. There have been no changes to her medications of note. Denies h/a, dizziness, visual changes, chest pain, palpitations sob, cough, abd pain, n/v/d. Objective - Vital Signs/Intake and Output Vital Signs (last 24 hours): Temp Pulse Resp BP Pulse Ox 98.2 F 68 18 156/86 H 96 08/24/18 07:30 08/24/18 07:30 08/24/18 07:30 08/24/18 07:30 08/24/18 07:30 Intake and Output: 08/24/18 08/24/18 06:59 18:59 Intake Total 4060 2400 Output Total 2955 1300 Balance 1105 1100 - Medications Medications: Current Medications Chlordiazepoxide (Librium) 25 mg PO Q6H PRN PRN Reason: Agitation Last Admin: 08/22/18 21:28 Dose: 25 mg Enoxaparin Sodium (Lovenox) 40 mg SC DAILY [facility] Last Admin: 08/24/18 09:37 Dose: 40 mg Gabapentin (Neurontin) 300 mg PO TID [facility] Last Admin: 08/24/18 13:20 Dose: 300 mg Sodium Chloride (Sodium Chloride 0.9%) 1,000 mls @ 200 mls/hr IV .Q5H [facility] Last Admin: 08/24/18 13:56 Dose: 200 mls/hr Acyclovir 500 mg/ Sodium (Chloride) 100 mls @ 100 mls/hr IV Q12H [facility]; Protocol Magnesium Oxide (Mag-Ox) 400 mg PO BID [facility] Last Admin: 08/24/18 09:36 Dose: 400 mg Mirtazapine (Remeron) 15 mg PO HS [facility] Last Admin: 08/23/18 21:20 Dose: 15 mg Morphine Sulfate (Morphine) 2 mg IVP Q4H PRN PRN Reason: pain Last Admin: 08/24/18 13:52 Dose: 2 mg Trazodone HCl (Desyrel) 50 mg PO HS PRN PRN Reason: Insomnia - Labs Labs: 08/23/18 07:38 08/23/18 07:38 - Constitutional Appears: Non-toxic, No Acute Distress - Head Exam Head Exam: ATRAUMATIC, NORMAL INSPECTION, NORMOCEPHALIC - Eye Exam Eye Exam: EOMI, Normal appearance, PERRL. absent: Nystagmus Pupil Exam: NORMAL ACCOMODATION, PERRL - ENT Exam ENT Exam: Mucous Membranes Moist - Neck Exam Neck Exam: Full ROM, Normal Inspection - Respiratory Exam Respiratory Exam: NORMAL BREATHING PATTERN - Extremities Exam Extremities Exam: absent: Calf Tenderness, Full ROM, Pedal Edema Additional comments: No motor deficits to RUE, LUE, and LLE. Unable to lift the RLE off the bed; able to move the RLE along bed; unable to dorsi/plantar flex to right foot. + right foot drop noted. - Back Exam Back Exam: Full ROM, NORMAL INSPECTION, paraspinal tenderness Additional comments: + tenderness to the lumbar paraspinal area and right buttock on palpation. - Neurological Exam Neurological Exam: Abnormal Gait, Alert, Awake, CN II-XII Intact, Motor Sensory Deficit, Oriented x3. absent: Reflexes Normal Neuro motor strength exam: Left Upper Extremity: 5 (classifier tender 5/5), Right Upper Extremity: 5 (classifier tender 5/5), Left Lower Extremity: 5 (plantar flexion 5/5), Right Lower Extremity: 2/1 (unable to flex foot ) Additional comments: Speech clear, fluid No motor deficits to RUE, LUE, and LLE. Unable to lift the RLE off the bed; able to move the RLE along bed; unable to do rsi/plantar flex to right foot. + right foot drop noted. Decreased sensation and vibration noted to RLE compared to the left. No tremors or clonus. Brisk patellar reflex to left; hyporeflexia noted to the right Gait unsteady; pt observed ambulating back to bed from the bathroom. - Psychiatric Exam Psychiatric exam: Normal Affect, Normal Mood - Skin Skin Exam: Normal Color, Vesicles (multiple vesicles noted to right forearm; one ruptured, others intact.) Assessment and Plan (1) Peripheral neuropathy Assessment & Plan: Imaging reviewed: -Lumbar CT (08/22/18): Unremarkable radiographs of the lumbar spine. -MRI lumbar spine, MRI right lower extremity (including the pelvis) to r/o any nerve involvement or other acute issues---will f/u with results. -Continue current medications. -Continue PT/OT. -Recommend ID consult for vesicles to right forearm---possible shingles; pt has a h/o herpes to genitals, mouth, and nose and she is a heroin user (has track cortez to arms). Discussed with REBECCA Gardiner. -Notify neuro team of any acute changes in pt's condition. Mary Hobbs DNP, [employer] Discussed with Dr. Vincent Status: Acute
[2018-08-24] MEDS: Acyclovir 500 MG in Sodium Chloride 0.9% 100 ML IV SCH (17:17)
--- NOTE | 2018-08-24 18:36 | CP.PCM.PN ---
Subjective - Date & Time of Evaluation Date of Evaluation: 08/24/18 Time of Evaluation: 18:36 - Subjective Subjective: Patient seen and examined No events overnight Objective - Vital Signs/Intake and Output Vital Signs (last 24 hours): Temp Pulse Resp BP Pulse Ox 97.5 F L 65 20 134/78 98 08/24/18 16:00 08/24/18 16:00 08/24/18 16:00 08/24/18 16:00 08/24/18 16:00 Intake and Output: 08/24/18 08/24/18 06:59 18:59 Intake Total 4060 2400 Output Total 2955 1300 Balance 1105 1100 - Medications Medications: Current Medications Chlordiazepoxide (Librium) 25 mg PO Q6H PRN PRN Reason: Agitation Last Admin: 08/22/18 21:28 Dose: 25 mg Enoxaparin Sodium (Lovenox) 40 mg SC DAILY [facility] Last Admin: 08/24/18 09:37 Dose: 40 mg Gabapentin (Neurontin) 300 mg PO TID [facility] Last Admin: 08/24/18 17:17 Dose: 300 mg Sodium Chloride (Sodium Chloride 0.9%) 1,000 mls @ 200 mls/hr IV .Q5H [facility] Last Admin: 08/24/18 15:59 Dose: Not Given Acyclovir 500 mg/ Sodium (Chloride) 100 mls @ 100 mls/hr IV Q12H [facility]; Protocol Last Admin: 08/24/18 17:17 Dose: 100 mls/hr Magnesium Oxide (Mag-Ox) 400 mg PO BID [facility] Last Admin: 08/24/18 17:17 Dose: 400 mg Mirtazapine (Remeron) 15 mg PO HS [facility] Last Admin: 08/23/18 21:20 Dose: 15 mg Morphine Sulfate (Morphine) 2 mg IVP Q4H PRN PRN Reason: pain Last Admin: 08/24/18 17:30 Dose: 2 mg Trazodone HCl (Desyrel) 50 mg PO HS PRN PRN Reason: Insomnia - Labs Labs: 08/23/18 07:38 08/23/18 07:38 - Head Exam Head Exam: NORMAL INSPECTION - Eye Exam Eye Exam: Normal appearance - ENT Exam ENT Exam: Mucous Membranes Moist - Neck Exam Neck Exam: Normal Inspection - Respiratory Exam Respiratory Exam: Clear to Ausculation Bilateral - Cardiovascular Exam Cardiovascular Exam: REGULAR RHYTHM, +S1, +S2 - GI/Abdominal Exam GI & Abdominal Exam: Soft, Normal Bowel Sounds - Extremities Exam Additional comments: Right upper extremity vesicles Assessment and Plan (1) Nerve palsy Status: Acute (2) Rhabdomyolysis Status: Acute (3) Alcohol dependence Status: Acute (4) Opioid use disorder, severe, dependence Status: Acute (5) Shingles Status: Acute - Assessment and Plan (Free Text) Plan: IVF Follow CPK's Thiamine Folate Acyclovir ID consult DVT/GI prophalaxis
[2018-08-24 20:27] LABS: BARBITURATES, UR NEGATIVE (NEGATIVE); PHENCYCLIDINE, UR NEGATIVE (NEGATIVE)
[2018-08-24 20:29] LABS: BENZODIAZEPINES, UR POSITIVE (NEGATIVE); OPIATES, UR POSITIVE (NEGATIVE)
[2018-08-24 23:57] LABS: SQUAMOUS EPITHIAL 1 /hpf (0-5); URINE BACTERIA RARE (<OCC); URINE BILIRUBIN NEGATIVE (NEGATIVE); URINE BLOOD NEGATIVE (NEGATIVE); URINE CLARITY Clear (Clear); URINE COLOR Yellow (YELLOW); URINE GLUCOSE (UA) NORMAL (Normal); URINE LEUKOCYTE ESTERASE NEG Leu/uL (Negative); URINE PROTEIN NEGATIVE (NEGATIVE); URINE UROBILINOGEN NORMAL mg/dL (0.2-1.0)
[2018-08-25] MEDS: Sodium Chloride 0.9% 1,000 ML IV SCH ×4 (02:42→21:08)
[2018-08-25] MEDS: Acyclovir 500 MG in Sodium Chloride 0.9% 100 ML IV SCH (06:02)
[2018-08-25 06:36] LABS: BASO % 1.1 % (0.0-2.0); EOS # 0.1 K/uL (0.0-0.7); EOS % 2.8 % (0.0-4.0); HEMOGLOBIN 11.2 g/dL (11.0-16.0); LYMPH # 1.4 K/uL (1.0-4.3); LYMPH % 38.9 % (20.0-40.0); MEAN CELL VOLUME 102.5 fL (81.0-99.0); MEAN CORPUSCULAR HEMOGLOBIN 33.7 pg (27.0-31.0); MEAN CORPUSCULAR HGB CONC 32.8 g/dL (33.0-37.0); MEAN PLATELET VOLUME 7.7 fL (7.2-11.7); MONO # 0.4 K/uL (0.0-0.8); MONO % 12.2 % (0.0-10.0); NEUT # 1.6 K/uL (1.8-7.0); NRBC % 0.1 % (0.0-2.0); RBC 3.31 Mil/uL (3.80-5.20); RED CELL DISTRIBUTION WIDTH 15.7 % (11.5-14.5); WHITE BLOOD COUNT 3.5 K/uL (4.8-10.8)
[2018-08-25 06:51] LABS: ALB/GLOB RATIO 1.1 (1.0-2.1); ALT/SGPT 119 U/L (9-52); AST/SGOT 218 U/L (14-36); BLOOD UREA NITROGEN 7 mg/dL (7-17); CALCIUM 8.6 mg/dl (8.6-10.4); GFR NON-AFRICAN AMERICAN > 60
[2018-08-25] MEDS: Magnesium Oxide 400 mg Tab UD PO SCH ×2 (09:43→18:10)
[2018-08-25] MEDS: Enoxaparin 40 mg Syringe SC SCH (09:43)
--- NOTE | 2018-08-25 12:40 | CP.PCM.CON ---
History of Present Illness - History of Present Illness History of Present Illness: 38F with PMHx significant for asthma, COPD, Hep C and IVDA/EtOH abuse who presents to s/p fall yesterday. When she woke up she states she was unable to move her R leg with significant pain in the R hip. [place] [address] [place] 4203 and pt continues to have pain mostly in the R hip. ID consulterd for vesicular rash c/o pain no fever no itch PMHx: as listed above PSHx: R inguinal hernia rx, tubal ligation SocialHx: PPD x 20 yrs, IVDA w/heroin, EtOH abuse FamHx: non-contributory All: PCN Review of Systems - Review of Systems All systems: reviewed and no additional remarkable complaints except Past Patient History - Infectious Disease Hx of Infectious Diseases: None - Tetanus Immunizations Tetanus Immunization: Unknown - Past Medical History & Family History Past Medical History?: Yes - Past Social History Smoking Status: Heavy Smoker > 10 Cigarettes Daily - CARDIAC Hx Hypertension: No - PULMONARY Hx Chronic Obstructive Pulmonary Disease (COPD): Yes - NEUROLOGICAL Hx Seizures: Yes (Due to alcohol withdrawal) - HEENT Hx HEENT Problems: No - RENAL Hx Chronic Kidney Disease: No - ENDOCRINE/METABOLIC Hx Endocrine Disorders: No - HEMATOLOGICAL/ONCOLOGICAL Hx Human Immunodeficiency Virus (HIV): (SEE NOTE) - INTEGUMENTARY Hx Dermatological Problems: No - MUSCULOSKELETAL/RHEUMATOLOGICAL Hx Falls: No - GASTROINTESTINAL Hx Pancreatitis: Yes - GENITOURINARY/GYNECOLOGICAL Hx Sexually Transmitted Disorders: Yes (Herpes) - PSYCHIATRIC Hx Anxiety: Yes Hx Depression: Yes Hx Post Traumatic Stress Disorder: Yes Hx Substance Use: Yes (heroin) - SURGICAL HISTORY Hx Surgeries: Yes Hx Herniorrhaphy: Yes Hx Tubal Ligation: Yes (2 years ago) - ANESTHESIA Hx Anesthesia: Yes Hx Anesthesia Reactions: No Hx Malignant Hyperthermia: No Meds Allergies/Adverse Reactions: Allergies Allergy/AdvReac Type Severity Reaction Status Date / Time Penicillins Allergy ANAPHYLAXIS Verified 08/21/18 19:16 seafood Allergy ANAPHYLAXIS Uncoded 08/21/18 19:16 - Medications Medications: Current Medications Chlordiazepoxide (Librium) 25 mg PO Q6H PRN PRN Reason: Agitation Last Admin: 08/22/18 21:28 Dose: 25 mg Enoxaparin Sodium (Lovenox) 40 mg SC DAILY [facility] Last Admin: 08/25/18 09:43 Dose: 40 mg Gabapentin (Neurontin) 300 mg PO TID [facility] Last Admin: 08/25/18 09:42 Dose: 300 mg Sodium Chloride (Sodium Chloride 0.9%) 1,000 mls @ 200 mls/hr IV .Q5H [facility] Last Admin: 08/25/18 02:42 Dose: 200 mls/hr Acyclovir 500 mg/ Sodium (Chloride) 100 mls @ 100 mls/hr IV Q12H [facility]; Protocol Last Admin: 08/25/18 06:02 Dose: 100 mls/hr Magnesium Oxide (Mag-Ox) 400 mg PO BID [facility] Last Admin: 08/25/18 09:43 Dose: 400 mg Mirtazapine (Remeron) 15 mg PO HS [facility] Last Admin: 08/24/18 21:02 Dose: 15 mg Morphine Sulfate (Morphine) 2 mg IVP Q4H PRN PRN Reason: pain Last Admin: 08/25/18 11:49 Dose: 2 mg Trazodone HCl (Desyrel) 50 mg PO HS PRN PRN Reason: Insomnia Last Admin: 08/24/18 21:06 Dose: 50 mg Physical Exam - Constitutional Appears: Non-toxic, No Acute Distress, Chronically Ill - Head Exam Head Exam: NORMOCEPHALIC - Eye Exam Eye Exam: absent: Scleral icterus - ENT Exam ENT Exam: Mucous Membranes Dry - Neck Exam Neck exam: Negative for: Lymphadenopathy - Respiratory Exam Respiratory Exam: Decreased Breath Sounds - Cardiovascular Exam Cardiovascular Exam: REGULAR RHYTHM - GI/Abdominal Exam GI & Abdominal Exam: Diminished Bowel Sounds, Soft. absent: Tenderness - Rectal Exam Rectal Exam: Deferred - Exam Exam: NORMAL INSPECTION - Extremities Exam Extremities exam: Negative for: pedal edema - Back Exam Back exam: absent: CVA tenderness (L), CVA tenderness (R) - Neurological Exam Neurological exam: Alert, CN II-XII Intact, Oriented x3, Reflexes Normal - Psychiatric Exam Psychiatric exam: Normal Mood - Skin Skin Exam: Dry, Rash Additional comments: vesicles right arm and leg Results - Vital Signs Recent Vital Signs: Last Vital Signs Temp 98.8 F 08/25/18 07:00 Pulse 79 08/25/18 07:00 Resp 18 08/25/18 07:00 BP 166/70 H 08/25/18 07:00 Pulse Ox 98 08/25/18 07:00 - Labs Result Diagrams: 08/25/18 06:26 08/25/18 06:26 Labs: Laboratory Results - last 24 hr 08/24/18 08/24/18 08/25/18 20:02 23:46 06:26 WBC 3.5 L RBC 3.31 L Hgb 11.2 Hct 34.0 MCV 102.5 H MCH 33.7 H MCHC 32.8 L RDW 15.7 H Plt Count 240 MPV 7.7 Neut % (Auto) 45.0 L Lymph % (Auto) 38.9 [place] % (Auto) 12.2 H Eos % (Auto) 2.8 Baso % (Auto) 1.1 Neut # (Auto) 1.6 L Lymph # (Auto) 1.4 [place] # (Auto) 0.4 Eos # (Auto) 0.1 Baso # (Auto) 0.0 Sodium Potassium Chloride Carbon Dioxide Anion Gap BUN Creatinine Est GFR ( Amer) Est GFR (Non-Af Amer) Random Glucose Calcium Total Bilirubin AST ALT Alkaline Phosphatase Total Protein Albumin Globulin Albumin/Globulin Ratio Urine Color Yellow Urine Clarity Clear Urine pH 7.0 Ur Specific [place] 1.011 Urine Protein Negative Urine Glucose (UA) Normal Urine Ketones Negative Urine Blood Negative Urine Nitrate Negative Urine Bilirubin Negative Urine Urobilinogen Normal Ur Leukocyte Esterase Neg Urine WBC (Auto) < 1 Urine RBC (Auto) < 1 Ur Squamous Epith Cells 1 Urine Bacteria Rare Urine Opiates Screen Positive H Urine Methadone Screen Negative Ur Barbiturates Screen Negative Ur Phencyclidine Scrn Negative Ur Amphetamines Screen Negative U Benzodiazepines Scrn Positive U Oth Cocaine Metabols Negative U Cannabinoids Screen Negative 08/25/18 06:26 WBC RBC Hgb Hct MCV MCH MCHC RDW Plt Count MPV Neut % (Auto) Lymph % (Auto) [place] % (Auto) Eos % (Auto) Baso % (Auto) Neut # (Auto) Lymph # (Auto) [place] # (Auto) Eos # (Auto) Baso # (Auto) Sodium 138 Potassium 4.4 Chloride 105 Carbon Dioxide 30 Anion Gap 7 L BUN 7 Creatinine 0.7 Est GFR ( Amer) > 60 Est GFR (Non-Af Amer) > 60 Random Glucose 93 Calcium 8.6 Total Bilirubin 0.2 AST 218 H D ALT 119 H D Alkaline Phosphatase 61 Total Protein 5.7 L Albumin 3.0 L Globulin 2.7 Albumin/Globulin Ratio 1.1 Urine Color Urine Clarity Urine pH Ur Specific [place] Urine Protein Urine Glucose (UA) Urine Ketones Urine Blood Urine Nitrate Urine Bilirubin Urine Urobilinogen Ur Leukocyte Esterase Urine WBC (Auto) Urine RBC (Auto) Ur Squamous Epith Cells Urine Bacteria Urine Opiates Screen Urine Methadone Screen Ur Barbiturates Screen Ur Phencyclidine Scrn Ur Amphetamines Screen U Benzodiazepines Scrn U Oth Cocaine Metabols U Cannabinoids Screen Assessment & Plan - Assessment and Plan (Free Text) Assessment: doubt varicella zoster but will isolate, start famvir
--- NOTE | 2018-08-25 13:31 | CP.PCM.PN ---
Subjective - Date & Time of Evaluation Date of Evaluation: 08/25/18 Time of Evaluation: 10:00 - Subjective Subjective: Patient feeling much better No chest pain no shortness of breath. Vital signs noted to be stable. Urine output very good. Objective - Vital Signs/Intake and Output Vital Signs (last 24 hours): Temp Pulse Resp BP Pulse Ox 98.8 F 79 18 166/70 H 98 08/25/18 07:00 08/25/18 07:00 08/25/18 07:00 08/25/18 07:00 08/25/18 07:00 Intake and Output: 08/25/18 08/25/18 06:59 18:59 Intake Total 2400 1600 Output Total 800 Balance 2400 800 - Medications Medications: Current Medications Chlordiazepoxide (Librium) 25 mg PO Q6H PRN PRN Reason: Agitation Last Admin: 08/22/18 21:28 Dose: 25 mg Enoxaparin Sodium (Lovenox) 40 mg SC DAILY [facility] Last Admin: 08/25/18 09:43 Dose: 40 mg Ergocalciferol (Drisdol 50,000 Intl Units Cap) 1 cap PO Q7D [facility] Famciclovir (Famvir) 500 mg PO TID [facility]; Protocol Last Admin: 08/25/18 13:07 Dose: 500 mg Gabapentin (Neurontin) 300 mg PO TID [facility] Last Admin: 08/25/18 13:06 Dose: 300 mg Sodium Chloride (Sodium Chloride 0.9%) 1,000 mls @ 200 mls/hr IV .Q5H [facility] Last Admin: 08/25/18 12:56 Dose: Not Given Magnesium Oxide (Mag-Ox) 400 mg PO BID [facility] Last Admin: 08/25/18 09:43 Dose: 400 mg Mirtazapine (Remeron) 15 mg PO HS [facility] Last Admin: 08/24/18 21:02 Dose: 15 mg Morphine Sulfate (Morphine) 2 mg IVP Q4H PRN PRN Reason: pain Last Admin: 08/25/18 11:49 Dose: 2 mg Trazodone HCl (Desyrel) 50 mg PO HS PRN PRN Reason: Insomnia Last Admin: 08/24/18 21:06 Dose: 50 mg - Labs Labs: 08/25/18 06:26 08/25/18 06:26 - Constitutional Appears: No Acute Distress - Eye Exam Eye Exam: Conjunctival injection - ENT Exam ENT Exam: Mucous Membranes Moist - Neck Exam Neck Exam: absent: Lymphadenopathy - Respiratory Exam Respiratory Exam: NORMAL BREATHING PATTERN. absent: Chest Wall Tenderness - Cardiovascular Exam Cardiovascular Exam: absent: Gallop, JVD, Rubs - GI/Abdominal Exam GI & Abdominal Exam: Soft, Normal Bowel Sounds - Extremities Exam Extremities Exam: absent: Calf Tenderness - Back Exam Back Exam: absent: CVA tenderness (L), CVA tenderness (R) - Neurological Exam Neurological Exam: Alert - Psychiatric Exam Psychiatric exam: absent: Normal Affect - Skin Skin Exam: absent: Cyanosis Assessment and Plan (1) Rhabdomyolysis Assessment & Plan: imp: Rhabdomylosis/ Anemia/ Hypomagnesemia Vitamin D deficiency Abnormal liver function test. Plan Patient is stable continue gentle hydration Kidney function is stable CPK trending down Repeat serum magnesium pending from this morning, if still low patient need magnesium supplement Order vitamin D 50,000 units once a week Status: Acute
[2018-08-25] MEDS: Ergocalciferol 50,000 Intl Units Cap PO SCH (14:05)
--- NOTE | 2018-08-25 15:32 | CP.PCM.PN ---
Subjective - Date & Time of Evaluation Date of Evaluation: 08/25/18 Time of Evaluation: 15:27 - Subjective Subjective: Neuro Follow-Up Note: Ms. Bhatti was evaluated this afternoon at bedside. She is still complaining of right lower leg weakness with decreased movement with lower back pain that radiates to her right buttock. She states the pain is tolerable. She still c/o itchiness to the vesicles on her right forearm. Noticed right thigh swelling and pain today with 1 new vesicle to the area as well. Denies h/a, dizziness, visual changes, chest pain, palpitations sob, cough, abd pain, n/v/d. Objective - Vital Signs/Intake and Output Vital Signs (last 24 hours): Temp Pulse Resp BP Pulse Ox 98.8 F 79 18 166/70 H 98 08/25/18 07:00 08/25/18 07:00 08/25/18 07:00 08/25/18 07:00 08/25/18 07:00 Intake and Output: 08/25/18 08/25/18 06:59 18:59 Intake Total 2400 2300 Output Total 1300 Balance 2400 1000 - Medications Medications: Current Medications Chlordiazepoxide (Librium) 25 mg PO Q6H PRN PRN Reason: Agitation Last Admin: 08/22/18 21:28 Dose: 25 mg Enoxaparin Sodium (Lovenox) 40 mg SC DAILY [facility] Last Admin: 08/25/18 09:43 Dose: 40 mg Ergocalciferol (Drisdol 50,000 Intl Units Cap) 1 cap PO Q7D [facility] Last Admin: 08/25/18 14:05 Dose: 1 cap Famciclovir (Famvir) 500 mg PO TID [facility]; Protocol Last Admin: 08/25/18 13:07 Dose: 500 mg Gabapentin (Neurontin) 300 mg PO TID [facility] Last Admin: 08/25/18 13:06 Dose: 300 mg Sodium Chloride (Sodium Chloride 0.9%) 1,000 mls @ 200 mls/hr IV .Q5H [facility] Last Admin: 08/25/18 12:56 Dose: Not Given Magnesium Oxide (Mag-Ox) 400 mg PO BID [facility] Last Admin: 08/25/18 09:43 Dose: 400 mg Mirtazapine (Remeron) 15 mg PO HS [facility] Last Admin: 08/24/18 21:02 Dose: 15 mg Morphine Sulfate (Morphine) 2 mg IVP Q4H PRN PRN Reason: pain Last Admin: 08/25/18 11:49 Dose: 2 mg Trazodone HCl (Desyrel) 50 mg PO HS PRN PRN Reason: Insomnia Last Admin: 08/24/18 21:06 Dose: 50 mg - Labs Labs: 08/25/18 06:26 08/25/18 06:26 - Constitutional Appears: Well, Non-toxic, No Acute Distress - Head Exam Head Exam: ATRAUMATIC, NORMAL INSPECTION, NORMOCEPHALIC - Eye Exam Eye Exam: EOMI, Normal appearance, PERRL Pupil Exam: NORMAL ACCOMODATION, PERRL - ENT Exam ENT Exam: Mucous Membranes Moist - Neck Exam Neck Exam: Full ROM, Normal Inspection - Respiratory Exam Respiratory Exam: NORMAL BREATHING PATTERN - Extremities Exam Extremities Exam: absent: Calf Tenderness, Full ROM, Pedal Edema Additional comments: No motor deficits to RUE, LUE, and LLE. Still unable to lift the RLE off the bed; able to move the RLE along bed; still unable to dorsi/plantar flex to right foot. + right foot drop noted. Swelling noted to right thigh with some tenderness - Back Exam Back Exam: Full ROM, paraspinal tenderness Additional comments: + tenderness to the lumbar paraspinal area and right buttock on palpation, improved since yesterday - Neurological Exam Neurological Exam: Alert, Awake, CN II-XII Intact, Oriented x3 Neuro motor strength exam: Left Upper Extremity: 5, Right Upper Extremity: 5, Left Lower Extremity: 5, Right Lower Extremity: 2/1 (unable to plantar flex) Additional comments: Speech clear, fluid No motor deficits to RUE, LUE, and LLE. Still unable to lift the RLE off the bed; able to move the RLE along bed; still unable to dorsi/plantar flex to right foot. + right foot drop noted. Decreased sensation and vibration noted to RLE compared to the left. No tremors or clonus. Brisk patellar reflex to left; hyporeflexia noted to the right Gait unsteady; pt observed ambulating steadily back to bed from the bathroom with walker. - Psychiatric Exam Psychiatric exam: Normal Affect, Normal Mood - Skin Skin Exam: Normal Color, Vesicles (right forearm) Assessment and Plan (1) Peripheral neuropathy Assessment & Plan: Imaging reviewed: -Lumbar CT (08/22/18): Unremarkable radiographs of the lumbar spine. -MRI lumbar spine, MRI right lower extremity (including the pelvis) to r/o any nerve involvement or other acute issues---ordered yesterday, still pending, will f/u with results. -Continue current medications. -Continue PT/OT. -Continue recommendations by other consults. -Doppler right lower extremity ordered---defer result f/u to primary team. -Notify neuro team of any acute changes in pt's condition. Mary Hobbs, CANDIDA, RN PROGR[employer]ARE Discussed with Dr. Vincent Status: Acute
--- NOTE | 2018-08-25 16:43 | CP.PCM.PN ---
Subjective - Date & Time of Evaluation Date of Evaluation: 08/25/18 Time of Evaluation: 16:42 - Subjective Subjective: Pt is seen and examined No events oevrnight Objective - Vital Signs/Intake and Output Vital Signs (last 24 hours): Temp Pulse Resp BP Pulse Ox 98.8 F 79 18 166/70 H 98 08/25/18 07:00 08/25/18 07:00 08/25/18 07:00 08/25/18 07:00 08/25/18 07:00 Intake and Output: 08/25/18 08/25/18 06:59 18:59 Intake Total 2400 2300 Output Total 1300 Balance 2400 1000 - Medications Medications: Current Medications Chlordiazepoxide (Librium) 25 mg PO Q6H PRN PRN Reason: Agitation Last Admin: 08/22/18 21:28 Dose: 25 mg Enoxaparin Sodium (Lovenox) 40 mg SC DAILY [facility] Last Admin: 08/25/18 09:43 Dose: 40 mg Ergocalciferol (Drisdol 50,000 Intl Units Cap) 1 cap PO Q7D [facility] Last Admin: 08/25/18 14:05 Dose: 1 cap Famciclovir (Famvir) 500 mg PO TID [facility]; Protocol Last Admin: 08/25/18 13:07 Dose: 500 mg Gabapentin (Neurontin) 300 mg PO TID [facility] Last Admin: 08/25/18 13:06 Dose: 300 mg Sodium Chloride (Sodium Chloride 0.9%) 1,000 mls @ 200 mls/hr IV .Q5H [facility] Last Admin: 08/25/18 16:40 Dose: 200 mls/hr Magnesium Oxide (Mag-Ox) 400 mg PO BID [facility] Last Admin: 08/25/18 09:43 Dose: 400 mg Mirtazapine (Remeron) 15 mg PO HS [facility] Last Admin: 08/24/18 21:02 Dose: 15 mg Morphine Sulfate (Morphine) 2 mg IVP Q4H PRN PRN Reason: pain Last Admin: 08/25/18 16:32 Dose: 2 mg Trazodone HCl (Desyrel) 50 mg PO HS PRN PRN Reason: Insomnia Last Admin: 08/24/18 21:06 Dose: 50 mg - Labs Labs: 08/25/18 06:26 08/25/18 06:26 - Head Exam Head Exam: NORMAL INSPECTION - Eye Exam Eye Exam: Normal appearance - ENT Exam ENT Exam: Mucous Membranes Moist - Respiratory Exam Respiratory Exam: Clear to Ausculation Bilateral - Cardiovascular Exam Cardiovascular Exam: REGULAR RHYTHM, +S1, +S2 - GI/Abdominal Exam GI & Abdominal Exam: Soft, Normal Bowel Sounds - Extremities Exam Extremities Exam: Normal Inspection - Neurological Exam Neurological Exam: Alert, Oriented x3 Assessment and Plan (1) Nerve palsy Status: Acute (2) Rhabdomyolysis Status: Acute (3) Alcohol dependence Status: Acute (4) Opioid use disorder, severe, dependence Status: Acute (5) Shingles Status: Acute - Assessment and Plan (Free Text) Plan: IVF Repeat CPK's Thiamine Folate Acyclovir Awaiting MRI Follow LE doppler DVT/GI prophalaxis
--- NOTE | 2018-08-25 18:31 | MRI ---
Date of service: 08/25/2018 PROCEDURE: MR LUMBAR SPINE WITHOUT CONTRAST HISTORY: right lower ext numbness/weakness, right foot drop COMPARISON: Low back pain. TECHNIQUE: Multiecho multiplanar sequences were performed through the lumbar spine without the use of intravenous contrast. FINDINGS: There is normal alignment of the lumbar vertebral bodies. There is normal lumbar lordosis. There is heterogeneous predominantly hypo intense signal in the lumbar spine on stir, T1 and T2 weighted images. There is no acute fracture or spondylolysis. The conus medullaris terminates at a normal level and the nerve roots of cauda equina are normal. The disc heights are maintained. T12-L1: No disc herniation, spinal canal stenosis or neural foraminal narrowing. L1-2: No disc herniation, spinal canal stenosis or neural foraminal narrowing. L2-3: No disc herniation, spinal canal stenosis or neural foraminal narrowing. L3-4: No disc herniation, spinal canal stenosis or neural foraminal narrowing. L4-5: Mild posterior bulge without spinal canal stenosis or neural foraminal narrowing. L5-S1: Mild posterior bulge without spinal canal stenosis or neural foraminal narrowing. OTHER FINDINGS: The paraspinous soft tissues are normal. Imaged portion of the retroperitoneum is within normal limits. There is edema in the deep soft tissues of the back. IMPRESSION: 1. No acute fracture, spondylolysis or spondylolisthesis. 2. Minimal posterior disc bulges at L4-5 and L5-S1 without spinal canal stenosis or neural foraminal narrowing. 3. Low signal in the visualized thoracolumbar spine is nonspecific and could represent marrow inflated process or anemia of chronic disease. Clinical follow-up is advised.
[2018-08-25 18:41] LABS: HEPATITIS A IGM NEGATIVE (NEGATIVE); HEPATITIS B CORE AB NEGATIVE (NEGATIVE)
[2018-08-25 18:43] LABS: HEPATITIS B SURFACE AG Negative (NEGATIVE)
[2018-08-25 19:11] LABS: HEPATITIS C ANTIBODY REACTIVE (NEGATIVE)
[2018-08-26] MEDS: Sodium Chloride 0.9% 1,000 ML IV SCH ×5 (02:34→17:01)
[2018-08-26] MEDS: Magnesium Oxide 400 mg Tab UD PO SCH ×2 (10:48→17:01)
[2018-08-26] MEDS: Enoxaparin 40 mg Syringe SC SCH (10:48)
--- NOTE | 2018-08-26 11:41 | CP.PCM.PN ---
Subjective - Date & Time of Evaluation Date of Evaluation: 08/26/18 Time of Evaluation: 11:40 - Subjective Subjective: Patient awake and conscious not in acute distress appears to be comfortable Objective - Vital Signs/Intake and Output Vital Signs (last 24 hours): Temp Pulse Resp BP Pulse Ox 98.1 F 61 20 151/85 H 96 08/26/18 07:00 08/26/18 07:00 08/26/18 07:00 08/26/18 07:00 08/26/18 07:00 Intake and Output: 08/26/18 08/26/18 06:59 18:59 Intake Total 2280 Balance 2280 - Medications Medications: Current Medications Chlordiazepoxide (Librium) 25 mg PO Q6H PRN PRN Reason: Agitation Last Admin: 08/22/18 21:28 Dose: 25 mg Enoxaparin Sodium (Lovenox) 40 mg SC DAILY [facility] Last Admin: 08/26/18 10:48 Dose: 40 mg Ergocalciferol (Drisdol 50,000 Intl Units Cap) 1 cap PO Q7D [facility] Last Admin: 08/25/18 14:05 Dose: 1 cap Famciclovir (Famvir) 500 mg PO TID [facility]; Protocol Last Admin: 08/26/18 10:48 Dose: 500 mg Gabapentin (Neurontin) 300 mg PO TID [facility] Last Admin: 08/26/18 10:48 Dose: 300 mg Sodium Chloride (Sodium Chloride 0.9%) 1,000 mls @ 200 mls/hr IV .Q5H [facility] Last Admin: 08/26/18 08:30 Dose: Not Given Magnesium Oxide (Mag-Ox) 400 mg PO BID [facility] Last Admin: 08/26/18 10:48 Dose: 400 mg Mirtazapine (Remeron) 15 mg PO HS [facility] Last Admin: 08/25/18 21:59 Dose: 15 mg Morphine Sulfate (Morphine) 2 mg IVP Q4H PRN PRN Reason: pain Last Admin: 08/26/18 10:48 Dose: 2 mg Trazodone HCl (Desyrel) 50 mg PO HS PRN PRN Reason: Insomnia Last Admin: 08/25/18 21:59 Dose: 50 mg - Labs Labs: 08/25/18 06:26 08/25/18 06:26 - Constitutional Appears: No Acute Distress - Eye Exam Eye Exam: Conjunctival injection - ENT Exam ENT Exam: Mucous Membranes Moist - Neck Exam Neck Exam: absent: Lymphadenopathy - Respiratory Exam Respiratory Exam: absent: Chest Wall Tenderness - GI/Abdominal Exam GI & Abdominal Exam: Soft, Normal Bowel Sounds - Extremities Exam Extremities Exam: absent: Calf Tenderness - Back Exam Back Exam: absent: CVA tenderness (L), CVA tenderness (R) - Neurological Exam Neurological Exam: Alert - Psychiatric Exam Psychiatric exam: Normal Affect - Skin Skin Exam: absent: Cyanosis Assessment and Plan (1) Rhabdomyolysis Assessment & Plan: Assessment & Plan: imp: Rhabdomylosis/ Anemia/ Hypomagnesemia Vitamin D deficiency Abnormal liver function test. Plan Patient is stable continue gentle hydration Kidney function is stable CPK trending down Liver function trending down and improving Magnesium supplement orally Status: Acute
--- NOTE | 2018-08-26 13:04 | MRI ---
Date of service: 08/25/2018 PROCEDURE: MRI Right Hip TECHNIQUE: Multiecho multiplanar sequences were performed through the right hip without the use of intravenous contrast. HISTORY: Pain. COMPARISON: None available. FINDINGS: Marrow signal is unremarkable. No fracture is identified. there is a mild strain within the gluteus fozia muscle belly, posterior to the hip joint. Moderate strain noted along the lateral aspect of the gluteus fozia muscle, at the level of the hip joint. High-grade strain and partial tearing partially visualized of the gemellus inferior muscle. There is a high-grade strain versus partial tearing of the quadratus femoris muscle. High-grade strain versus partial tearing also noted within the adductor Ken muscle as well as the adductor brevis muscle. Fluid noted adjacent to the adductor Longus muscle. High-grade strain and likely partial tearing also noted of the semitendinosis muscle. Large amount of subcutaneous edema within the fat, greatest anteriorly. Edema also noted within the posterior muscle bellies of the thigh. Fluid also noted adjacent to multiple muscles in the posterior thigh. There is a right ovarian 4.1 cm cyst. Urinary bladder is unremarkable. There is no right-sided pelvic or inguinal lymphadenopathy. There is no significant right inguinal lymphadenopathy. IMPRESSION: Multiple high-grade strains versus partial tears of multiple muscles as detailed above. Mild strain of the gluteus fozia muscle belly and moderate strain of the gluteus fozia muscle belly laterally as detailed above. Large amount of edema within the right thigh and hip as above. Additional findings as above.
--- NOTE | 2018-08-26 13:06 | VASCLAB ---
Date of service: 08/26/2018 PROCEDURE: Lower Extremity Venous Duplex Exam. HISTORY: right thigh swelling and pain; r/o thrombosis PRIORS: None. TECHNIQUE: Bilateral common femoral, femoral, popliteal and posterior tibial, peroneal and great saphenous veins were evaluated. Flow was assessed with color Doppler, compressibility, assessment of phasic flow and augmentation response. Report prepared by Vance Pope, BS, RVT FINDINGS: RIGHT: 1. Common Femoral Vein: 1.1. Compressibility - Fully compressible: Thrombus - None : Flow - Phasic: Augmentation -Normal: Reflux - None. 2. Femoral Vein: 2.1. Compressibility - Fully compressible: Thrombus - None : Flow - Phasic: Augmentation -Normal: Reflux - None. 3. Popliteal Vein: 3.1. Compressibility - Fully compressible: Thrombus - None : Flow - Phasic: Augmentation -Normal: Reflux - None. 4. Posterior Tibial Vein: 4.1. Compressibility - Fully compressible: Thrombus - None: Flow - Phasic: Augmentation -Normal: Reflux - None. 5. Peroneal Vein: 5.1. Compressibility - Fully compressible: Thrombus - None: Flow - Phasic: Augmentation -Normal: Reflux - None. 6. Great Saphenous Vein: 6.1. Compressibility - Fully compressible: Thrombus - None: Flow - Phasic: Augmentation - Normal: Reflux - None. LEFT: 1. Common Femoral Vein: 1.1. Compressibility - Fully compressible: Thrombus - None: Flow - Phasic: Augmentation -Normal: Reflux - None. 2. Femoral Vein: 2.1. Compressibility - Fully compressible: Thrombus - None: Flow - Phasic: Augmentation -Normal: Reflux - None. 3. Popliteal Vein: 3.1. Compressibility - Fully compressible: Thrombus - None : Flow - Phasic: Augmentation -Normal: Reflux - None. 4. Posterior Tibial Vein: 4.1. Compressibility - Fully compressible: Thrombus - None: Flow - Phasic: Augmentation -Normal: Reflux - None. 5. Peroneal Vein: 5.1. Compressibility - Fully compressible: Thrombus - None: Flow - Phasic: Augmentation -Normal: Reflux - None. 6. Great Saphenous Vein: 6.1. Compressibility - Fully compressible: Thrombus - None: Flow - Phasic: Augmentation - Normal: Reflux - None. OTHER FINDINGS: Right: None significant. Left: None significant. IMPRESSION: Right: No evidence of deep or superficial vein thrombosis of the right lower extremity. Normal valve function noted of the right side. Left: No evidence of deep or superficial vein thrombosis of the left lower extremity. Normal valve function noted of the left side.
--- NOTE | 2018-08-26 14:00 | CP.PCM.PN ---
Subjective - Date & Time of Evaluation Date of Evaluation: 08/26/18 Time of Evaluation: 09:00 - Subjective Subjective: c/o swollen right upper leg Objective - Vital Signs/Intake and Output Vital Signs (last 24 hours): Temp Pulse Resp BP Pulse Ox 98.1 F 61 20 151/85 H 96 08/26/18 07:00 08/26/18 07:00 08/26/18 07:00 08/26/18 07:00 08/26/18 07:00 Intake and Output: 08/26/18 08/26/18 06:59 18:59 Intake Total 2280 Balance 2280 - Medications Medications: Current Medications Chlordiazepoxide (Librium) 25 mg PO Q6H PRN PRN Reason: Agitation Last Admin: 08/22/18 21:28 Dose: 25 mg Enoxaparin Sodium (Lovenox) 40 mg SC DAILY [facility] Last Admin: 08/26/18 10:48 Dose: 40 mg Ergocalciferol (Drisdol 50,000 Intl Units Cap) 1 cap PO Q7D [facility] Last Admin: 08/25/18 14:05 Dose: 1 cap Famciclovir (Famvir) 500 mg PO TID [facility]; Protocol Last Admin: 08/26/18 13:37 Dose: 500 mg Gabapentin (Neurontin) 300 mg PO TID [facility] Last Admin: 08/26/18 13:37 Dose: 300 mg Sodium Chloride (Sodium Chloride 0.9%) 1,000 mls @ 200 mls/hr IV .Q5H [facility] Last Admin: 08/26/18 08:30 Dose: Not Given Magnesium Oxide (Mag-Ox) 400 mg PO BID [facility] Last Admin: 08/26/18 10:48 Dose: 400 mg Mirtazapine (Remeron) 15 mg PO HS [facility] Last Admin: 08/25/18 21:59 Dose: 15 mg Morphine Sulfate (Morphine) 2 mg IVP Q4H PRN PRN Reason: pain Last Admin: 08/26/18 10:48 Dose: 2 mg Trazodone HCl (Desyrel) 50 mg PO HS PRN PRN Reason: Insomnia Last Admin: 08/25/18 21:59 Dose: 50 mg - Labs Labs: 08/25/18 06:26 08/25/18 06:26 - Constitutional Appears: Non-toxic - Head Exam Head Exam: ATRAUMATIC, NORMAL INSPECTION, NORMOCEPHALIC - Eye Exam Eye Exam: EOMI, Normal appearance, PERRL Pupil Exam: NORMAL ACCOMODATION, PERRL - ENT Exam ENT Exam: Mucous Membranes Moist, Normal Exam - Neck Exam Neck Exam: Full ROM, Normal Inspection. absent: Lymphadenopathy - Respiratory Exam Respiratory Exam: Clear to Ausculation Bilateral, NORMAL BREATHING PATTERN - Cardiovascular Exam Cardiovascular Exam: REGULAR RHYTHM, +S1, +S2. absent: Murmur - GI/Abdominal Exam GI & Abdominal Exam: Soft, Normal Bowel Sounds. absent: Tenderness - Rectal Exam Rectal Exam: Deferred - Exam Exam: NORMAL INSPECTION - Extremities Exam Extremities Exam: Full ROM, Normal Capillary Refill, Normal Inspection. absent: Joint Swelling, Pedal Edema - Back Exam Back Exam: NORMAL INSPECTION - Neurological Exam Neurological Exam: Alert, Awake, CN II-XII Intact, Normal Gait, Oriented x3 - Psychiatric Exam Psychiatric exam: Normal Affect, Normal Mood - Skin Skin Exam: Dry, Intact, Normal Color, Warm Assessment and Plan - Assessment and Plan (Free Text) Assessment: cont hydration, oral antiviral rx mneeds ortho and neuro follolw up
--- NOTE | 2018-08-26 14:40 | CP.PCM.PN ---
Subjective - Date & Time of Evaluation Date of Evaluation: 08/26/18 Time of Evaluation: 14:40 - Subjective Subjective: Patient is seen and examined No events overnight Objective - Vital Signs/Intake and Output Vital Signs (last 24 hours): Temp Pulse Resp BP Pulse Ox 98.1 F 61 20 151/85 H 96 08/26/18 07:00 08/26/18 07:00 08/26/18 07:00 08/26/18 07:00 08/26/18 07:00 Intake and Output: 08/26/18 08/26/18 06:59 18:59 Intake Total 2280 800 Balance 2280 800 - Medications Medications: Current Medications Chlordiazepoxide (Librium) 25 mg PO Q6H PRN PRN Reason: Agitation Last Admin: 08/22/18 21:28 Dose: 25 mg Enoxaparin Sodium (Lovenox) 40 mg SC DAILY [facility] Last Admin: 08/26/18 10:48 Dose: 40 mg Ergocalciferol (Drisdol 50,000 Intl Units Cap) 1 cap PO Q7D [facility] Last Admin: 08/25/18 14:05 Dose: 1 cap Famciclovir (Famvir) 500 mg PO TID [facility]; Protocol Last Admin: 08/26/18 13:37 Dose: 500 mg Gabapentin (Neurontin) 300 mg PO TID [facility] Last Admin: 08/26/18 13:37 Dose: 300 mg Sodium Chloride (Sodium Chloride 0.9%) 1,000 mls @ 200 mls/hr IV .Q5H [facility] Last Admin: 08/26/18 14:07 Dose: 200 mls/hr Magnesium Oxide (Mag-Ox) 400 mg PO BID [facility] Last Admin: 08/26/18 10:48 Dose: 400 mg Mirtazapine (Remeron) 15 mg PO HS [facility] Last Admin: 08/25/18 21:59 Dose: 15 mg Morphine Sulfate (Morphine) 2 mg IVP Q4H PRN PRN Reason: pain Last Admin: 08/26/18 10:48 Dose: 2 mg Trazodone HCl (Desyrel) 50 mg PO HS PRN PRN Reason: Insomnia Last Admin: 08/25/18 21:59 Dose: 50 mg - Labs Labs: 08/25/18 06:26 08/25/18 06:26 - Head Exam Head Exam: NORMAL INSPECTION - Eye Exam Eye Exam: Normal appearance - ENT Exam ENT Exam: Mucous Membranes Moist - Neck Exam Neck Exam: Normal Inspection - Respiratory Exam Respiratory Exam: Clear to Ausculation Bilateral - Cardiovascular Exam Cardiovascular Exam: REGULAR RHYTHM, +S1, +S2 - GI/Abdominal Exam GI & Abdominal Exam: Soft, Normal Bowel Sounds - Extremities Exam Extremities Exam: Normal Inspection Assessment and Plan (1) Nerve palsy Status: Acute (2) Rhabdomyolysis Status: Acute (3) Alcohol dependence Status: Acute (4) Opioid use disorder, severe, dependence Status: Acute (5) Shingles Status: Acute - Assessment and Plan (Free Text) Plan: IVF Repeat CPK's Thiamine Folate Acyclovir Awaiting MRI Follow LE doppler DVT/GI prophalaxis
[2018-08-27] MEDS: Sodium Chloride 0.9% 1,000 ML IV SCH ×6 (01:33→17:48)
[2018-08-27 07:05] LABS: BLOOD UREA NITROGEN 11 mg/dL (7-17); CALCIUM 8.7 mg/dl (8.6-10.4); GFR NON-AFRICAN AMERICAN > 60
[2018-08-27 09:05] LABS: RUBELLA AB (IGG) 3.28 index
[2018-08-27] MEDS: Magnesium Oxide 400 mg Tab UD PO SCH ×2 (09:31→17:37)
[2018-08-27] MEDS: Enoxaparin 40 mg Syringe SC SCH (09:31)
--- NOTE | 2018-08-27 10:50 | CP.PCM.PN ---
Subjective - Date & Time of Evaluation Date of Evaluation: 08/27/18 Time of Evaluation: 09:00 - Subjective Subjective: PGY2- Neuro Progress Note for Dr. Vincent Patient seen and examined at bedside. Patient says she has low right sided back pain that radiates into her buttocks as well as anterior and posterior right thigh pain. Patient rates the pain 9/10. Patient also admits to numbness and tingling sensation in right thigh and lower portion of right leg. Patient is able to ambulate using a walker, but has overall decreased strength in her right leg. Patient denies any headache, visual changes, nausea, vomiting, constipation, or diarrhea. Objective - Vital Signs/Intake and Output Vital Signs (last 24 hours): Temp Pulse Resp BP Pulse Ox 98.0 F 64 20 146/89 99 08/27/18 07:30 08/27/18 07:30 08/27/18 07:30 08/27/18 07:30 08/27/18 07:30 Intake and Output: 08/27/18 08/27/18 06:59 18:59 Intake Total 1600 Balance 1600 - Medications Medications: Current Medications Chlordiazepoxide (Librium) 25 mg PO Q6H PRN PRN Reason: Agitation Last Admin: 08/22/18 21:28 Dose: 25 mg Enoxaparin Sodium (Lovenox) 40 mg SC DAILY [facility] Last Admin: 08/27/18 09:31 Dose: 40 mg Ergocalciferol (Drisdol 50,000 Intl Units Cap) 1 cap PO Q7D [facility] Last Admin: 08/25/18 14:05 Dose: 1 cap Famciclovir (Famvir) 500 mg PO TID [facility]; Protocol Last Admin: 08/27/18 09:35 Dose: 500 mg Gabapentin (Neurontin) 300 mg PO TID [facility] Last Admin: 08/27/18 09:31 Dose: 300 mg Sodium Chloride (Sodium Chloride 0.9%) 1,000 mls @ 200 mls/hr IV .Q5H [facility] Last Admin: 08/27/18 07:54 Dose: Not Given Magnesium Oxide (Mag-Ox) 400 mg PO BID [facility] Last Admin: 08/27/18 09:31 Dose: 400 mg Mirtazapine (Remeron) 15 mg PO HS [facility] Last Admin: 08/26/18 21:26 Dose: 15 mg Morphine Sulfate (Morphine) 2 mg IVP Q4 PRN PRN Reason: Pain, severe (8-10) Last Admin: 08/27/18 08:35 Dose: 2 mg Trazodone HCl (Desyrel) 50 mg PO HS PRN PRN Reason: Insomnia Last Admin: 08/26/18 21:32 Dose: 50 mg - Labs Labs: 08/25/18 06:26 08/27/18 06:38 - Constitutional Appears: Non-toxic, No Acute Distress - Head Exam Head Exam: ATRAUMATIC, NORMAL INSPECTION, NORMOCEPHALIC - Eye Exam Eye Exam: EOMI, Normal appearance - ENT Exam ENT Exam: Mucous Membranes Moist - Neck Exam Neck Exam: Full ROM - Respiratory Exam Respiratory Exam: Clear to Ausculation Bilateral - Cardiovascular Exam Cardiovascular Exam: REGULAR RHYTHM, RRR, +S1, +S2 - Extremities Exam Extremities Exam: Normal Inspection - Neurological Exam Neurological Exam: Alert, Awake, Oriented x3 Neuro motor strength exam: Left Upper Extremity: 5, Right Upper Extremity: 5, Left Lower Extremity: 5, Right Lower Extremity: 3 Additional comments: No motor deficits to RUE, LUE, and LLE. can minimally extend and flex lower leg, still unable to dorsi/plantar flex to right foot, can wiggle right big toe Decreased sensation and vibration noted to RLE compared to the left. No tremors or clonus. - Psychiatric Exam Psychiatric exam: Normal Affect, Normal Mood - Skin Skin Exam: Intact, Normal Color, Warm Assessment and Plan - Assessment and Plan (Free Text) Assessment: Peripheral Neuropathy -LE venous duplex negative -LE MR (08/25/18): strain of multiple muscles vs partial tears, large amount of subcutaneous edema within right thigh and hip -Ortho consulted, Dr. Palomino, help appreciated -Lumbar spine MRI (08/24/18): 1. no acute fracture, spondylosis, or spondylolisthesis 2. minimal posterior disc buldges at L4- L5 and L5-S1 without spinal canal stenosis or neural foraminal narrowing. 3. Low signal in the visualized thoracolumbar spine is nonspecific and could represent marrow inflated process or anemia of chronic disease -Lumbar Xray (08/22/18): Unremarkable radiographs of the lumbar spine. -Continue PT/OT -Notify neuro team of any acute changes in pt's condition. Discussed with Dr. Carlton Sutton, PGY2
--- NOTE | 2018-08-27 18:31 | CP.PCM.PN ---
Subjective - Date & Time of Evaluation Date of Evaluation: 08/27/18 Time of Evaluation: 18:31 - Subjective Subjective: Patient is seen and examined No events overnight Objective - Vital Signs/Intake and Output Vital Signs (last 24 hours): Temp Pulse Resp BP Pulse Ox 98.1 F 74 20 124/79 97 08/27/18 16:00 08/27/18 16:00 08/27/18 16:00 08/27/18 16:00 08/27/18 16:00 Intake and Output: 08/27/18 08/27/18 06:59 18:59 Intake Total 1600 1999 Balance 1600 1999 - Medications Medications: Current Medications Chlordiazepoxide (Librium) 25 mg PO Q6H PRN PRN Reason: Agitation Last Admin: 08/22/18 21:28 Dose: 25 mg Enoxaparin Sodium (Lovenox) 40 mg SC DAILY [facility] Last Admin: 08/27/18 09:31 Dose: 40 mg Ergocalciferol (Drisdol 50,000 Intl Units Cap) 1 cap PO Q7D [facility] Last Admin: 08/25/18 14:05 Dose: 1 cap Famciclovir (Famvir) 500 mg PO TID [facility]; Protocol Last Admin: 08/27/18 17:37 Dose: 500 mg Gabapentin (Neurontin) 300 mg PO TID [facility] Last Admin: 08/27/18 17:37 Dose: 300 mg Sodium Chloride (Sodium Chloride 0.9%) 1,000 mls @ 200 mls/hr IV .Q5H [facility] Last Admin: 08/27/18 17:48 Dose: 200 mls/hr Magnesium Oxide (Mag-Ox) 400 mg PO BID [facility] Last Admin: 08/27/18 17:37 Dose: 400 mg Mirtazapine (Remeron) 15 mg PO HS [facility] Last Admin: 08/26/18 21:26 Dose: 15 mg Morphine Sulfate (Morphine) 2 mg IVP Q4 PRN PRN Reason: Pain, severe (8-10) Last Admin: 08/27/18 16:37 Dose: 2 mg Trazodone HCl (Desyrel) 50 mg PO HS PRN PRN Reason: Insomnia Last Admin: 08/26/18 21:32 Dose: 50 mg - Labs Labs: 08/25/18 06:26 08/27/18 06:38 - Head Exam Head Exam: NORMAL INSPECTION - Eye Exam Eye Exam: Normal appearance - ENT Exam ENT Exam: Mucous Membranes Moist - Respiratory Exam Respiratory Exam: Clear to Ausculation Bilateral - Cardiovascular Exam Cardiovascular Exam: REGULAR RHYTHM, +S1, +S2 - GI/Abdominal Exam GI & Abdominal Exam: Soft, Normal Bowel Sounds - Extremities Exam Extremities Exam: Tenderness Assessment and Plan (1) Nerve palsy Status: Acute (2) Rhabdomyolysis Status: Acute (3) Alcohol dependence Status: Acute (4) Opioid use disorder, severe, dependence Status: Acute (5) Shingles Status: Acute - Assessment and Plan (Free Text) Plan: Thiamine Folate Acyclovir Lower extremity Doppler results reviewed DVT/GI prophalaxis
[2018-08-28] MEDS: Sodium Chloride 0.9% 1,000 ML IV SCH (02:11)
--- NOTE | 2018-08-28 08:37 | CP.PCM.PN ---
Subjective - Date & Time of Evaluation Date of Evaluation: 08/28/18 Time of Evaluation: 08:36 - Subjective Subjective: Patient is out of bed Still complaining of some pain in the right upper thigh and right lower ankle area Appetite is normal no nausea no vomiting Objective - Vital Signs/Intake and Output Vital Signs (last 24 hours): Temp Pulse Resp BP Pulse Ox 97.6 F 66 20 112/70 97 08/28/18 07:00 08/28/18 07:00 08/28/18 07:00 08/28/18 07:00 08/28/18 07:00 Intake and Output: 08/28/18 08/28/18 06:59 18:59 Intake Total 1999 Balance 1999 - Medications Medications: Current Medications Chlordiazepoxide (Librium) 25 mg PO Q6H PRN PRN Reason: Agitation Last Admin: 08/22/18 21:28 Dose: 25 mg Enoxaparin Sodium (Lovenox) 40 mg SC DAILY [facility] Last Admin: 08/27/18 09:31 Dose: 40 mg Ergocalciferol (Drisdol 50,000 Intl Units Cap) 1 cap PO Q7D [facility] Last Admin: 08/25/18 14:05 Dose: 1 cap Famciclovir (Famvir) 500 mg PO TID [facility]; Protocol Last Admin: 08/27/18 17:37 Dose: 500 mg Gabapentin (Neurontin) 300 mg PO TID [facility] Last Admin: 08/27/18 17:37 Dose: 300 mg Sodium Chloride (Sodium Chloride 0.9%) 1,000 mls @ 200 mls/hr IV .Q5H [facility] Last Admin: 08/28/18 02:11 Dose: 200 mls/hr Magnesium Oxide (Mag-Ox) 400 mg PO BID [facility] Last Admin: 08/27/18 17:37 Dose: 400 mg Mirtazapine (Remeron) 15 mg PO HS [facility] Last Admin: 08/27/18 21:01 Dose: 15 mg Morphine Sulfate (Morphine) 2 mg IVP Q4 PRN PRN Reason: Pain, severe (8-10) Last Admin: 08/28/18 06:19 Dose: 2 mg Trazodone HCl (Desyrel) 50 mg PO HS PRN PRN Reason: Insomnia Last Admin: 08/27/18 21:01 Dose: 50 mg - Labs Labs: 08/25/18 06:26 08/27/18 06:38 - Constitutional Appears: No Acute Distress - Eye Exam Eye Exam: Conjunctival injection - ENT Exam ENT Exam: Mucous Membranes Moist - Neck Exam Neck Exam: absent: Lymphadenopathy - Respiratory Exam Respiratory Exam: NORMAL BREATHING PATTERN. absent: Chest Wall Tenderness - Cardiovascular Exam Cardiovascular Exam: absent: Gallop, JVD, Rubs - GI/Abdominal Exam GI & Abdominal Exam: Soft, Normal Bowel Sounds - Extremities Exam Extremities Exam: absent: Calf Tenderness - Back Exam Back Exam: absent: CVA tenderness (L), CVA tenderness (R) - Neurological Exam Neurological Exam: Alert - Psychiatric Exam Psychiatric exam: Normal Affect - Skin Skin Exam: absent: Cyanosis Assessment and Plan (1) Rhabdomyolysis Assessment & Plan: imp: Rhabdomylosis/ Anemia/ Hypomagnesemia Vitamin D deficiency Abnormal liver function test. Plan Patient is stable Kidney function is stable CPK trending down Liver function trending down and improving Magnesium supplement orally call me if needed thanks [phone] Status: Acute
[2018-08-28] MEDS: Magnesium Oxide 400 mg Tab UD PO SCH ×2 (10:42→18:14)
[2018-08-28] MEDS: Enoxaparin 40 mg Syringe SC SCH (10:43)
[2018-08-28 11:24] LABS: BASO % 0.9 % (0.0-2.0); EOS # 0.1 K/uL (0.0-0.7); EOS % 2.2 % (0.0-4.0); HEMOGLOBIN 11.7 g/dL (11.0-16.0); LYMPH # 1.7 K/uL (1.0-4.3); LYMPH % 37.3 % (20.0-40.0); MEAN CELL VOLUME 102.6 fL (81.0-99.0); MEAN CORPUSCULAR HEMOGLOBIN 34.1 pg (27.0-31.0); MEAN CORPUSCULAR HGB CONC 33.3 g/dL (33.0-37.0); MEAN PLATELET VOLUME 8.2 fL (7.2-11.7); MONO # 0.6 K/uL (0.0-0.8); MONO % 11.9 % (0.0-10.0); NEUT # 2.2 K/uL (1.8-7.0); NEUT % 47.7 % (50.0-75.0); NRBC % 0.1 % (0.0-2.0); RBC 3.44 Mil/uL (3.80-5.20); RED CELL DISTRIBUTION WIDTH 15.3 % (11.5-14.5); WHITE BLOOD COUNT 4.7 K/uL (4.8-10.8)
[2018-08-28 11:36] LABS: BLOOD UREA NITROGEN 9 mg/dL (7-17); CALCIUM 9.1 mg/dl (8.6-10.4); GFR NON-AFRICAN AMERICAN > 60
--- NOTE | 2018-08-28 11:54 | CP.PCM.CON ---
History of Present Illness - History of Present Illness History of Present Illness: Orthopedic consultation Dr. mattson 38F complains of right leg numbness/weakness/pain and thigh swelling. Patient was admitted on 08/21 after falling and being on her right side for an unknown period of time due to drug intoxication. Upon presentation to the ED, she was found to have rhambdomyolysis and KEVYN. At this time, she says she can now lift her leg (she could not upon presentation) and she is able to wiggle her toes a little. She says her leg is still numb. Denies change in bowel/bladder. Denies symptoms to left leg. No prior injury to RLE. Denies CP/SOB/dizziness/n/v/fever/chills/urinary sx Review of Systems - Review of Systems All systems: reviewed and no additional remarkable complaints except - Constitutional Constitutional: Weakness Additional comments: no fever/chills - Cardiovascular Cardiovascular: As Per HPI - Respiratory Respiratory: As Per HPI - Gastrointestinal Gastrointestinal: As Per HPI - Musculoskeletal Musculoskeletal: As Per HPI - Integumentary Additional comments: skin intact - Neurological Neurological: As Per HPI - Hematologic/Lymphatic Hematologic: absent: As Per HPI, Easy Bleeding, Easy Bruising, Lymphadenopathy, Other Past Patient History - Infectious Disease Hx of Infectious Diseases: None - Tetanus Immunizations Tetanus Immunization: Unknown - Past Medical History & Family History Past Medical History?: Yes Past Family History: Reviewed and not pertinent - Past Social History Smoking Status: Heavy Smoker > 10 Cigarettes Daily Alcohol: > 2 Drinks/Day Drugs: Opiates (heroin) - CARDIAC Hx Hypertension: No - PULMONARY Hx Chronic Obstructive Pulmonary Disease (COPD): Yes - NEUROLOGICAL Hx Seizures: Yes (Due to alcohol withdrawal) - HEENT Hx HEENT Problems: No - RENAL Hx Chronic Kidney Disease: No - ENDOCRINE/METABOLIC Hx Endocrine Disorders: No - HEMATOLOGICAL/ONCOLOGICAL Hx Human Immunodeficiency Virus (HIV): (SEE NOTE) - INTEGUMENTARY Hx Dermatological Problems: No - MUSCULOSKELETAL/RHEUMATOLOGICAL Hx Falls: No - GASTROINTESTINAL Hx Pancreatitis: Yes - GENITOURINARY/GYNECOLOGICAL Hx Sexually Transmitted Disorders: Yes (Herpes) - PSYCHIATRIC Hx Anxiety: Yes Hx Depression: Yes Hx Post Traumatic Stress Disorder: Yes Hx Substance Use: Yes (heroin) - SURGICAL HISTORY Hx Surgeries: Yes Hx Herniorrhaphy: Yes Hx Tubal Ligation: Yes (2 years ago) - ANESTHESIA Hx Anesthesia: Yes Hx Anesthesia Reactions: No Hx Malignant Hyperthermia: No Meds Allergies/Adverse Reactions: Allergies Allergy/AdvReac Type Severity Reaction Status Date / Time Penicillins Allergy ANAPHYLAXIS Verified 08/21/18 19:16 seafood Allergy ANAPHYLAXIS Uncoded 08/21/18 19:16 - Medications Medications: Current Medications Chlordiazepoxide (Librium) 25 mg PO Q6H PRN PRN Reason: Agitation Last Admin: 08/22/18 21:28 Dose: 25 mg Enoxaparin Sodium (Lovenox) 40 mg SC DAILY [facility] Last Admin: 08/28/18 10:43 Dose: 40 mg Ergocalciferol (Drisdol 50,000 Intl Units Cap) 1 cap PO Q7D [facility] Last Admin: 08/25/18 14:05 Dose: 1 cap Famciclovir (Famvir) 500 mg PO TID [facility]; Protocol Last Admin: 08/28/18 10:43 Dose: 500 mg Gabapentin (Neurontin) 300 mg PO TID [facility] Last Admin: 08/28/18 10:42 Dose: 300 mg Sodium Chloride (Sodium Chloride 0.9%) 1,000 mls @ 200 mls/hr IV .Q5H [facility] Last Admin: 08/28/18 02:11 Dose: 200 mls/hr Magnesium Oxide (Mag-Ox) 400 mg PO BID [facility] Last Admin: 08/28/18 10:42 Dose: 400 mg Mirtazapine (Remeron) 15 mg PO HS [facility] Last Admin: 08/27/18 21:01 Dose: 15 mg Morphine Sulfate (Morphine) 2 mg IVP Q4 PRN PRN Reason: Pain, severe (8-10) Last Admin: 08/28/18 10:43 Dose: 2 mg Trazodone HCl (Desyrel) 50 mg PO HS PRN PRN Reason: Insomnia Last Admin: 08/27/18 21:01 Dose: 50 mg Physical Exam - Constitutional Appears: Well, No Acute Distress - Head Exam Head Exam: ATRAUMATIC - Respiratory Exam Respiratory Exam: NORMAL BREATHING PATTERN - Cardiovascular Exam Additional comments: +DP/PT pulses RLE - Expanded Lower Extremities Exam Right Upper Leg exam: swelling (to right thigh, no erythema) Knee exam: full ROM (full AROM knee 4+/5 knee extension, 4/5 knee flexion, 3/5 great toe extension, 2/5 ankle DF, 3/5 toe flexion, 2+/5 PF, 4+/5 hip flexion, 4/5 hip extension), normal inspection Ankle exam: NORMAL INSPECTION (calves sfot NT neg homans) Neuro vacular tendon exam: sensory deficit (admits to leg being numb, except posterior thigh sensation intact, medial lower leg decreased sensation ) - Neurological Exam Neurological exam: Alert, Oriented x3 - Psychiatric Exam Psychiatric exam: Normal Affect, Normal Mood - Skin Skin Exam: Dry, Intact (no discoloration noted), Normal Color, Warm Results - Vital Signs Recent Vital Signs: Last Vital Signs Temp 97.6 F 08/28/18 07:00 Pulse 66 08/28/18 07:00 Resp 20 08/28/18 07:00 BP 119/64 08/28/18 07:00 Pulse Ox 97 08/28/18 07:00 - Labs Result Diagrams: 08/28/18 11:11 08/28/18 11:11 Labs: Laboratory Results - last 24 hr 08/24/18 08/25/18 08/25/18 20:02 06:26 17:18 WBC RBC Hgb Hct MCV MCH MCHC RDW Plt Count MPV Neut % (Auto) Lymph % (Auto) [place] % (Auto) Eos % (Auto) Baso % (Auto) Neut # (Auto) Lymph # (Auto) [place] # (Auto) Eos # (Auto) Baso # (Auto) Sodium Potassium Chloride Carbon Dioxide Anion Gap BUN Creatinine Est GFR ( Amer) Est GFR (Non-Af Amer) Random Glucose Calcium Total Creatine Kinase Urine Myoglobin < 28 HSV IgM Ab Screen Negative HSV I IgG Ab 16.20 H HSV I IgM Titer HSV II IgG 11.30 H HSV II IgM Titer HHV-6 IgM Ab Scrn Negative Mumps Virus IgG Ab >300.00 08/28/18 08/28/18 11:11 11:11 WBC 4.7 L RBC 3.44 L Hgb 11.7 Hct 35.3 MCV 102.6 H MCH 34.1 H MCHC 33.3 RDW 15.3 H Plt Count 290 MPV 8.2 Neut % (Auto) 47.7 L Lymph % (Auto) 37.3 [place] % (Auto) 11.9 H Eos % (Auto) 2.2 Baso % (Auto) 0.9 Neut # (Auto) 2.2 Lymph # (Auto) 1.7 [place] # (Auto) 0.6 Eos # (Auto) 0.1 Baso # (Auto) 0.0 Sodium 137 Potassium 3.7 Chloride 106 Carbon Dioxide 25 Anion Gap 10 BUN 9 Creatinine 0.6 L Est GFR ( Amer) > 60 Est GFR (Non-Af Amer) > 60 Random Glucose 124 H Calcium 9.1 Total Creatine Kinase 786 H Urine Myoglobin HSV IgM Ab Screen HSV I IgG Ab HSV I IgM Titer HSV II IgG HSV II IgM Titer HHV-6 IgM Ab Scrn Mumps Virus IgG Ab - EKG Data EKG comments: doppler no DVT BLE - Impressions Impression: Patient Name / ID : ARTHUR CORDON M / [id number] Exam Date : 08/25/2018 18:20:25 ( Addendum_Approved ) Study Comment : Sex / Age : F / 38Y Creator : Carter Oropeza MD Dictator : Carter Oropeza MD Care Clinician : Waist Presser : Carter Oropeza MD Approver2 : Report Date : 08/26/2018 12:58:43 My Comment : ADDENDUM: Additional findings: Fluid versus hemorrhage noted in between the muscle bellies of the posterior hip and posterior thigh. Preliminary impression was provided by the Teleradiology service. Major findings are concordant. [ Addendum Report Added by Carter Oropeza MD at 08/26/2018 13:06:31 ] Date of service: 08/25/2018 PROCEDURE: MRI Right Hip TECHNIQUE: Multiecho multiplanar sequences were performed through the right hip without the use of intravenous contrast. HISTORY: Pain. COMPARISON: None available. FINDINGS: Marrow signal is unremarkable. No fracture is identified. there is a mild strain within the gluteus fozia muscle belly, posterior to the hip joint. Moderate strain noted along the lateral aspect of the gluteus fozia muscle, at the level of the hip joint. High-grade strain and partial tearing partially visualized of the gemellus inferior muscle. There is a high- grade strain versus partial tearing of the quadratus femoris muscle. High-grade strain versus partial tearing also noted within the adductor Ken muscle as well as the adductor brevis muscle. Fluid noted adjacent to the adductor Longus muscle. High-grade strain and likely partial tearing also noted of the semitendinosis muscle. Large amount of subcutaneous edema within the fat, greatest anteriorly. Edema also noted within the posterior muscle bellies of the thigh. Fluid also noted adjacent to multiple muscles in the posterior thigh. There is a right ovarian 4.1 cm cyst. Urinary bladder is unremarkable. There is no right-sided pelvic or inguinal lymphadenopathy. There is no significant right inguinal lymphadenopathy. IMPRESSION: Multiple high-grade strains versus partial tears of multiple muscles as detailed above. Mild strain of the gluteus fozia muscle belly and moderate strain of the gluteus fozia muscle belly laterally as detailed above. Large amount of edema within the right thigh and hip as above. Additional findings as above. Patient Name / ID : ARTHUR Phoenix / [id number] Exam Date : 08/25/2018 17:55:15 ( Approved ) Study Comment : Sex / Age : F / 38Y Creator : Linda De La Cruz Dictator : Tiffany Curran MD Care Clinician : Waist Presser : Tiffany Curran MD Approver2 : Report Date : 08/25/2018 18:18:37 My Comment : Date of service: 08/25/2018 PROCEDURE: MR LUMBAR SPINE WITHOUT CONTRAST HISTORY: right lower ext numbness/weakness, right foot drop COMPARISON: Low back pain. TECHNIQUE: Multiecho multiplanar sequences were performed through the lumbar spine without the use of intravenous contrast. FINDINGS: There is normal alignment of the lumbar vertebral bodies. There is normal lumbar lordosis. There is heterogeneous predominantly hypo intense signal in the lumbar spine on stir, T1 and T2 weighted images. There is no acute fracture or spondylolysis. The conus medullaris terminates at a normal level and the nerve roots of cauda equina are normal. The disc heights are maintained. T12-L1: No disc herniation, spinal canal stenosis or neural foraminal narrowing. L1-2: No disc herniation, spinal canal stenosis or neural foraminal narrowing. L2-3: No disc herniation, spinal canal stenosis or neural foraminal narrowing. L3-4: No disc herniation, spinal canal stenosis or neural foraminal narrowing. L4-5: Mild posterior bulge without spinal canal stenosis or neural foraminal narrowing. L5-S1: Mild posterior bulge without spinal canal stenosis or neural foraminal narrowing. OTHER FINDINGS: The paraspinous soft tissues are normal. Imaged portion of the retroperitoneum is within normal limits. There is edema in the deep soft tissues of the back. IMPRESSION: 1. No acute fracture, spondylolysis or spondylolisthesis. 2. Minimal posterior disc bulges at L4-5 and L5-S1 without spinal canal stenosis or neural foraminal narrowing. 3. Low signal in the visualized thoracolumbar spine is nonspecific and could represent marrow inflated process or anemia of chronic disease. Clinical follow-up is advised. Assessment & Plan (1) Rhabdomyolysis Assessment and Plan: prolonged tissue compression and resultant muscle ischemia of right lower extremity due to intoxication, noted on MRI compressive neuropathy of sciatic nerve and likely femoral nerve also general surgery consult appreciated on admission no evidence of compartment syndrome patient has already shown significant improvement in nerve function since a dmission which is encouraging full extent of muscle damage unknown at this time no orthopedic surgical intervention indicated advised patient unclear how much function and sensation she will regain at this time, and that she may have permanent NV damage or muscle weakness PT/OT continue to monitor for improvement, PT to maximize gains peripheral neuropathy with this injury is outside scope of practice of Dr. Mattson neurology on case recommend VTE proph CPK downtrending, Cr normalized d/w Dr. Mattson, agrees with above Status: Acute (2) Sciatica neuralgia Status: Acute (3) Peripheral neuropathy Status: Acute
--- NOTE | 2018-08-28 14:46 | CP.PCM.PN ---
Subjective - Date & Time of Evaluation Date of Evaluation: 08/28/18 Time of Evaluation: 14:43 - Subjective Subjective: Neuro Follow-Up Note: Ms. Bhatti was evaluated this afternoon at bedside. She is still complaining of right lower leg weakness with decreased movement, and right buttock pain that radiates down her right leg. She admits that there is more decreased sensation to her right leg on the lateral aspect. Vesicles to right forearm have been resolved with redness to each location; still itchy per pt. She is working with PT and tolerating well. Denies h/a, dizziness, visual changes, chest pain, palpitations sob, cough, abd pain, n/v/d. Objective - Vital Signs/Intake and Output Vital Signs (last 24 hours): Temp Pulse Resp BP Pulse Ox 97.6 F 66 20 119/64 97 08/28/18 07:00 08/28/18 07:00 08/28/18 07:00 08/28/18 07:00 08/28/18 07:00 Intake and Output: 08/28/18 08/28/18 06:59 18:59 Intake Total 1999 Balance 1999 - Medications Medications: Current Medications Chlordiazepoxide (Librium) 25 mg PO Q6H PRN PRN Reason: Agitation Last Admin: 08/22/18 21:28 Dose: 25 mg Enoxaparin Sodium (Lovenox) 40 mg SC DAILY [facility] Last Admin: 08/28/18 10:43 Dose: 40 mg Ergocalciferol (Drisdol 50,000 Intl Units Cap) 1 cap PO Q7D [facility] Last Admin: 08/25/18 14:05 Dose: 1 cap Famciclovir (Famvir) 500 mg PO TID [facility]; Protocol Last Admin: 08/28/18 14:21 Dose: 500 mg Gabapentin (Neurontin) 300 mg PO TID [facility] Last Admin: 08/28/18 14:21 Dose: 300 mg Sodium Chloride (Sodium Chloride 0.9%) 1,000 mls @ 200 mls/hr IV .Q5H [facility] Last Admin: 08/28/18 02:11 Dose: 200 mls/hr Magnesium Oxide (Mag-Ox) 400 mg PO BID [facility] Last Admin: 08/28/18 10:42 Dose: 400 mg Mirtazapine (Remeron) 15 mg PO HS [facility] Last Admin: 08/27/18 21:01 Dose: 15 mg Morphine Sulfate (Morphine) 2 mg IVP Q4 PRN PRN Reason: Pain, severe (8-10) Last Admin: 08/28/18 10:43 Dose: 2 mg Trazodone HCl (Desyrel) 50 mg PO HS PRN PRN Reason: Insomnia Last Admin: 08/27/18 21:01 Dose: 50 mg - Labs Labs: 08/28/18 11:11 08/28/18 11:11 - Constitutional Appears: Well, Non-toxic, No Acute Distress - Head Exam Head Exam: ATRAUMATIC, NORMAL INSPECTION, NORMOCEPHALIC - Eye Exam Eye Exam: EOMI, Normal appearance, PERRL Pupil Exam: NORMAL ACCOMODATION, PERRL - ENT Exam ENT Exam: Mucous Membranes Moist - Neck Exam Neck Exam: Full ROM, Normal Inspection - Respiratory Exam Respiratory Exam: NORMAL BREATHING PATTERN - Extremities Exam Extremities Exam: absent: Calf Tenderness, Full ROM, Pedal Edema Additional comments: FROM to BUE and LLE Decreased ROM to the RLE; able to wiggle toes; decreased sensation - Neurological Exam Neurological Exam: Alert, Awake, Oriented x3, Reflexes Normal Neuro motor strength exam: Left Upper Extremity: 5, Right Upper Extremity: 5, Left Lower Extremity: 5, Right Lower Extremity: 3 (unable to plantar or dorsi flex) Additional comments: No motor deficits to RUE, LUE, and LLE. Motor deficits for RLE: decreased ROM; able to lift RLE off bed approx 2 inches and can hold up for several seconds; can wiggle toes. Decreased sensation and vibration noted to RLE compared to the left. Toes downgoing b/l No tremors or clonus. - Psychiatric Exam Psychiatric exam: Normal Affect, Normal Mood - Skin Skin Exam: Normal Color Additional comments: vesicles to right forearm have resolved; pt now has red spots to were each vesicle was located. Assessment and Plan (1) Peripheral neuropathy Assessment & Plan: Imaging reviewed: -Lower Exremity MRI: Multiple high-grade strains versus partial tears of multiple muscles as detailed above. Mild strain of the gluteus fozia muscle belly and moderate strain of the gluteus fozia muscle belly laterally as detailed above. Large amount of edema within the right thigh and hip as above. -L-Spine MRI: 1. No acute fracture, spondylolysis or spondylolisthesis. 2. Minimal posterior disc bulges at L4-5 and L5-S1 without spinal canal stenosis or neural foraminal narrowing. 3. Low signal in the visualized thoracolumbar spine is nonspecific and could represent marrow inflated process or anemia of chronic disease. Clinical follow-up is advised. -Lumbar CT (08/22/18): Unremarkable radiographs of the lumbar spine. -Continue current medications. -Continue PT/OT. Rehab if possible upon d/c for conditioning. -Heating pad to lower back prn. -Continue recommendations by other consults. -Notify neuro team of any acute changes in pt's condition. No further neuro recommendations. Please reconsult prn. Mary Hobbs DNP, [facility] Discussed with Dr. Vincent Status: Acute
--- NOTE | 2018-08-28 15:36 | CP.PCM.PN ---
Subjective - Date & Time of Evaluation Date of Evaluation: 08/28/18 Time of Evaluation: 15:36 - Subjective Subjective: Patient seen and examined No apparent distress Objective - Vital Signs/Intake and Output Vital Signs (last 24 hours): Temp Pulse Resp BP Pulse Ox 97.6 F 66 20 119/64 97 08/28/18 07:00 08/28/18 07:00 08/28/18 07:00 08/28/18 07:00 08/28/18 07:00 Intake and Output: 08/28/18 08/28/18 06:59 18:59 Intake Total 1999 Balance 1999 - Medications Medications: Current Medications Chlordiazepoxide (Librium) 25 mg PO Q6H PRN PRN Reason: Agitation Last Admin: 08/22/18 21:28 Dose: 25 mg Enoxaparin Sodium (Lovenox) 40 mg SC DAILY [facility] Last Admin: 08/28/18 10:43 Dose: 40 mg Ergocalciferol (Drisdol 50,000 Intl Units Cap) 1 cap PO Q7D [facility] Last Admin: 08/25/18 14:05 Dose: 1 cap Famciclovir (Famvir) 500 mg PO TID [facility]; Protocol Last Admin: 08/28/18 14:21 Dose: 500 mg Gabapentin (Neurontin) 300 mg PO TID [facility] Last Admin: 08/28/18 14:21 Dose: 300 mg Sodium Chloride (Sodium Chloride 0.9%) 1,000 mls @ 200 mls/hr IV .Q5H [facility] Last Admin: 08/28/18 02:11 Dose: 200 mls/hr Magnesium Oxide (Mag-Ox) 400 mg PO BID [facility] Last Admin: 08/28/18 10:42 Dose: 400 mg Mirtazapine (Remeron) 15 mg PO HS [facility] Last Admin: 08/27/18 21:01 Dose: 15 mg Morphine Sulfate (Morphine) 2 mg IVP Q4 PRN PRN Reason: Pain, severe (8-10) Last Admin: 08/28/18 14:49 Dose: 2 mg Trazodone HCl (Desyrel) 50 mg PO HS PRN PRN Reason: Insomnia Last Admin: 08/27/18 21:01 Dose: 50 mg - Labs Labs: 08/28/18 11:11 08/28/18 11:11 - Head Exam Head Exam: NORMAL INSPECTION - Eye Exam Eye Exam: Normal appearance - ENT Exam ENT Exam: Mucous Membranes Moist - Respiratory Exam Respiratory Exam: Clear to Ausculation Bilateral - Cardiovascular Exam Cardiovascular Exam: REGULAR RHYTHM, +S1, +S2 - GI/Abdominal Exam GI & Abdominal Exam: Soft, Normal Bowel Sounds - Extremities Exam Extremities Exam: Tenderness - Neurological Exam Neurological Exam: Alert, Oriented x3 Assessment and Plan (1) Nerve palsy Status: Acute (2) Rhabdomyolysis Status: Acute (3) Alcohol dependence Status: Acute (4) Opioid use disorder, severe, dependence Status: Acute (5) Shingles Status: Acute - Assessment and Plan (Free Text) Plan: Thiamine Folate Acyclovir Trazodone Morphine for pain control DVT/GI prophalaxis
--- NOTE | 2018-08-28 17:19 | CP.PCM.PN ---
Subjective - Date & Time of Evaluation Date of Evaluation: 08/28/18 Time of Evaluation: 07:00 - Subjective Subjective: no fever rash resolving Objective - Vital Signs/Intake and Output Vital Signs (last 24 hours): Temp Pulse Resp BP Pulse Ox 98 F 82 20 118/71 96 08/28/18 17:10 08/28/18 17:10 08/28/18 17:10 08/28/18 17:10 08/28/18 17:10 Intake and Output: 08/28/18 08/28/18 06:59 18:59 Intake Total 1999 Balance 1999 - Medications Medications: Current Medications Chlordiazepoxide (Librium) 25 mg PO Q6H PRN PRN Reason: Agitation Last Admin: 08/22/18 21:28 Dose: 25 mg Enoxaparin Sodium (Lovenox) 40 mg SC DAILY [facility] Last Admin: 08/28/18 10:43 Dose: 40 mg Ergocalciferol (Drisdol 50,000 Intl Units Cap) 1 cap PO Q7D [facility] Last Admin: 08/25/18 14:05 Dose: 1 cap Famciclovir (Famvir) 500 mg PO TID [facility]; Protocol Last Admin: 08/28/18 14:21 Dose: 500 mg Gabapentin (Neurontin) 300 mg PO TID [facility] Last Admin: 08/28/18 14:21 Dose: 300 mg Sodium Chloride (Sodium Chloride 0.9%) 1,000 mls @ 200 mls/hr IV .Q5H [facility] Last Admin: 08/28/18 02:11 Dose: 200 mls/hr Magnesium Oxide (Mag-Ox) 400 mg PO BID [facility] Last Admin: 08/28/18 10:42 Dose: 400 mg Mirtazapine (Remeron) 15 mg PO HS [facility] Last Admin: 08/27/18 21:01 Dose: 15 mg Morphine Sulfate (Morphine) 2 mg IVP Q4 PRN PRN Reason: Pain, severe (8-10) Last Admin: 08/28/18 14:49 Dose: 2 mg Trazodone HCl (Desyrel) 50 mg PO HS PRN PRN Reason: Insomnia Last Admin: 08/27/18 21:01 Dose: 50 mg Vitamin A (Vitamin A & D Oint Ud Foilpak) 1 ea TOP BID [facility] - Labs Labs: 08/28/18 11:11 08/28/18 11:11 - Constitutional Appears: Non-toxic - Head Exam Head Exam: NORMOCEPHALIC - Eye Exam Eye Exam: absent: Scleral icterus - ENT Exam ENT Exam: Mucous Membranes Dry - Neck Exam Neck Exam: absent: Lymphadenopathy - Respiratory Exam Respiratory Exam: Decreased Breath Sounds - Cardiovascular Exam Cardiovascular Exam: REGULAR RHYTHM - GI/Abdominal Exam GI & Abdominal Exam: Distended, Soft - Rectal Exam Rectal Exam: Deferred - Exam Exam: NORMAL INSPECTION Assessment and Plan - Assessment and Plan (Free Text) Assessment: cont rx as ordered
[2018-08-28] MEDS: Vitamins A & D Oint UD Foilpak TOP SCH (18:15)
[2018-08-29] MEDS: Sodium Chloride 0.9% 1,000 ML IV SCH (04:35)
[2018-08-29] MEDS: Enoxaparin 40 mg Syringe SC SCH (09:00)
[2018-08-29] MEDS: Vitamins A & D Oint UD Foilpak TOP SCH ×2 (09:00→17:37)
[2018-08-29] MEDS: Magnesium Oxide 400 mg Tab UD PO SCH ×2 (09:00→17:35)
--- NOTE | 2018-08-29 16:41 | CP.PCM.PN ---
Subjective - Date & Time of Evaluation Date of Evaluation: 08/29/18 Time of Evaluation: 16:41 - Subjective Subjective: Patient is seen and examined No events overnight Objective - Vital Signs/Intake and Output Vital Signs (last 24 hours): Temp Pulse Resp BP Pulse Ox 97.9 F 63 20 104/68 98 08/29/18 07:00 08/29/18 07:00 08/29/18 07:00 08/29/18 07:00 08/29/18 07:00 Intake and Output: 08/29/18 08/29/18 06:59 18:59 Intake Total 2160 350 Balance 2160 350 - Medications Medications: Current Medications Ergocalciferol (Drisdol 50,000 Intl Units Cap) 1 cap PO Q7D [facility] Last Admin: 08/25/18 14:05 Dose: 1 cap Famciclovir (Famvir) 500 mg PO TID [facility]; Protocol Last Admin: 08/29/18 13:48 Dose: 500 mg Gabapentin (Neurontin) 300 mg PO TID [facility] Last Admin: 08/29/18 13:48 Dose: 300 mg Magnesium Oxide (Mag-Ox) 400 mg PO BID [facility] Last Admin: 08/29/18 09:00 Dose: 400 mg Mirtazapine (Remeron) 15 mg PO HS [facility] Last Admin: 08/28/18 22:41 Dose: 15 mg Morphine Sulfate (Morphine) 2 mg IVP Q4 PRN PRN Reason: Pain, severe (8-10) Last Admin: 08/29/18 13:48 Dose: 2 mg Trazodone HCl (Desyrel) 50 mg PO HS PRN PRN Reason: Insomnia Last Admin: 08/28/18 22:40 Dose: 50 mg Vitamin A (Vitamin A & D Oint Ud Foilpak) 1 ea TOP BID [facility] Last Admin: 08/29/18 09:00 Dose: 1 ea - Labs Labs: 08/28/18 11:11 08/28/18 11:11 - Head Exam Head Exam: NORMAL INSPECTION - Eye Exam Eye Exam: Normal appearance - ENT Exam ENT Exam: Mucous Membranes Moist - Respiratory Exam Respiratory Exam: Clear to Ausculation Bilateral - Cardiovascular Exam Cardiovascular Exam: REGULAR RHYTHM, +S1, +S2 - GI/Abdominal Exam GI & Abdominal Exam: Soft, Normal Bowel Sounds - Extremities Exam Extremities Exam: Tenderness - Neurological Exam Neurological Exam: Alert, Oriented x3 Assessment and Plan (1) Nerve palsy Status: Acute (2) Rhabdomyolysis Status: Acute (3) Alcohol dependence Status: Acute (4) Opioid use disorder, severe, dependence Status: Acute (5) Shingles Status: Acute - Assessment and Plan (Free Text) Plan: Thiamine Folate Neurontin Trazodone Morphine for pain control DVT/GI prophalaxis
[2018-08-30] MEDS: Vitamins A & D Oint UD Foilpak TOP SCH ×2 (09:07→17:27)
[2018-08-30] MEDS: Magnesium Oxide 400 mg Tab UD PO SCH ×2 (09:07→17:27)
--- NOTE | 2018-08-30 19:54 | CP.PCM.PN ---
Subjective - Date & Time of Evaluation Date of Evaluation: 08/30/18 Time of Evaluation: 19:54 - Subjective Subjective: Patient is seen and examined No events overnight Objective - Vital Signs/Intake and Output Vital Signs (last 24 hours): Temp Pulse Resp BP Pulse Ox 97.7 F 74 18 101/61 95 08/30/18 15:30 08/30/18 15:30 08/30/18 15:30 08/30/18 15:30 08/30/18 15:30 Intake and Output: 08/30/18 08/31/18 18:59 06:59 Intake Total 300 Balance 300 - Medications Medications: Current Medications Ergocalciferol (Drisdol 50,000 Intl Units Cap) 1 cap PO Q7D [facility] Last Admin: 08/25/18 14:05 Dose: 1 cap Famciclovir (Famvir) 500 mg PO TID [facility]; Protocol Last Admin: 08/30/18 17:28 Dose: 500 mg Gabapentin (Neurontin) 300 mg PO TID [facility] Last Admin: 08/30/18 17:28 Dose: 300 mg Magnesium Oxide (Mag-Ox) 400 mg PO BID [facility] Last Admin: 08/30/18 17:27 Dose: 400 mg Mirtazapine (Remeron) 15 mg PO HS [facility] Last Admin: 08/29/18 22:26 Dose: 15 mg Morphine Sulfate (Morphine) 2 mg IVP Q4 PRN PRN Reason: Pain, severe (8-10) Last Admin: 08/30/18 19:53 Dose: 2 mg Trazodone HCl (Desyrel) 50 mg PO HS PRN PRN Reason: Insomnia Last Admin: 08/29/18 22:26 Dose: 50 mg Vitamin A (Vitamin A & D Oint Ud Foilpak) 1 ea TOP BID [facility] Last Admin: 08/30/18 17:27 Dose: 1 ea - Labs Labs: 08/28/18 11:11 08/28/18 11:11 - Head Exam Head Exam: NORMAL INSPECTION - Eye Exam Eye Exam: Normal appearance - ENT Exam ENT Exam: Mucous Membranes Moist - Respiratory Exam Respiratory Exam: Clear to Ausculation Bilateral - Cardiovascular Exam Cardiovascular Exam: REGULAR RHYTHM, +S1, +S2 - GI/Abdominal Exam GI & Abdominal Exam: Soft, Normal Bowel Sounds - Extremities Exam Extremities Exam: Tenderness Assessment and Plan (1) Nerve palsy Status: Acute (2) Rhabdomyolysis Status: Acute (3) Alcohol dependence Status: Acute (4) Opioid use disorder, severe, dependence Status: Acute (5) Shingles Status: Acute - Assessment and Plan (Free Text) Plan: PT/OT Patient encouraged to ambulate Awaiting placement Neurontin Trazodone Morphine for pain control DVT/GI prophalaxis
[2018-08-31] MEDS: Vitamins A & D Oint UD Foilpak TOP SCH ×2 (09:11→18:09)
[2018-08-31] MEDS: Magnesium Oxide 400 mg Tab UD PO SCH ×2 (09:12→18:08)
[2018-08-31] MEDS: Enoxaparin 40 mg Syringe SC SCH (10:38)
--- NOTE | 2018-08-31 14:07 | CP.PCM.PN ---
Subjective - Date & Time of Evaluation Date of Evaluation: 08/31/18 Time of Evaluation: 14:07 - Subjective Subjective: Patient is seen and examined No events overnight Objective - Vital Signs/Intake and Output Vital Signs (last 24 hours): Temp Pulse Resp BP Pulse Ox 97 F L 74 20 101/53 L 97 08/31/18 07:15 08/31/18 07:15 08/31/18 07:15 08/31/18 07:15 08/31/18 07:15 Intake and Output: 08/31/18 08/31/18 06:59 18:59 Intake Total 480 Balance 480 - Medications Medications: Current Medications Enoxaparin Sodium (Lovenox) 40 mg SC DAILY [facility] Last Admin: 08/31/18 10:38 Dose: 40 mg Ergocalciferol (Drisdol 50,000 Intl Units Cap) 1 cap PO Q7D [facility] Last Admin: 08/25/18 14:05 Dose: 1 cap Gabapentin (Neurontin) 300 mg PO TID [facility] Last Admin: 08/31/18 13:31 Dose: 300 mg Magnesium Oxide (Mag-Ox) 400 mg PO BID [facility] Last Admin: 08/31/18 09:12 Dose: 400 mg Mirtazapine (Remeron) 15 mg PO HS [facility] Last Admin: 08/30/18 22:37 Dose: 15 mg Morphine Sulfate (Morphine) 2 mg IVP Q6 PRN PRN Reason: Pain, severe (8-10) Last Admin: 08/31/18 12:11 Dose: 2 mg Trazodone HCl (Desyrel) 50 mg PO HS PRN PRN Reason: Insomnia Last Admin: 08/30/18 22:37 Dose: 50 mg Vitamin A (Vitamin A & D Oint Ud Foilpak) 1 ea TOP BID [facility] Last Admin: 08/31/18 09:11 Dose: 1 ea - Labs Labs: 08/28/18 11:11 08/28/18 11:11 - Head Exam Head Exam: NORMAL INSPECTION - Eye Exam Eye Exam: Normal appearance - ENT Exam ENT Exam: Mucous Membranes Moist - Respiratory Exam Respiratory Exam: Clear to Ausculation Bilateral - Cardiovascular Exam Cardiovascular Exam: REGULAR RHYTHM - GI/Abdominal Exam GI & Abdominal Exam: Soft, Normal Bowel Sounds Assessment and Plan (1) Nerve palsy Status: Acute (2) Rhabdomyolysis Status: Acute (3) Alcohol dependence Status: Acute (4) Opioid use disorder, severe, dependence Status: Acute (5) Shingles Status: Acute - Assessment and Plan (Free Text) Plan: PT/OT Patient encouraged to ambulate Awaiting placement Neurontin Trazodone Morphine for pain control DVT/GI prophalaxis
[2018-09-01] MEDS: Magnesium Oxide 400 mg Tab UD PO SCH ×2 (09:40→18:28)
[2018-09-01] MEDS: Enoxaparin 40 mg Syringe SC SCH (09:40)
[2018-09-01] MEDS: Vitamins A & D Oint UD Foilpak TOP SCH ×2 (09:41→18:28)
--- NOTE | 2018-09-01 12:29 | CP.PCM.PN ---
Subjective - Date & Time of Evaluation Date of Evaluation: 09/01/18 Time of Evaluation: 12:26 - Subjective Subjective: Patient states she is feeling better. She says she is having tingling pain on inside of leg, but outside is still numb. She says she is able to move her toes more and she is walking down the [place] with her walker. She states she wants to go home and not to another facility. Review of Systems - Review of Systems All systems: reviewed and no additional remarkable complaints except - Constitutional Additional comments: no fever/chills - Cardiovascular Cardiovascular: UNREMARKABLE - Respiratory Respiratory: UNREMARKABLE - Gastrointestinal Gastrointestinal: UNREMARKABLE - Musculoskeletal Musculoskeletal: As Par HPI - Integumentary Integumentary: UNREMARKABLE - Neurological Neurological: As Per HPI - Endocrine Endocrine: UNREMARKABLE - Hematologic/Lymphatic Hematologic: UNREMARKABLE Objective - Vital Signs/Intake and Output Vital Signs (last 24 hours): Temp Pulse Resp BP Pulse Ox 97.4 F L 56 L 20 110/73 97 09/01/18 08:30 09/01/18 08:30 09/01/18 08:30 09/01/18 08:30 09/01/18 08:30 Intake and Output: 09/01/18 09/01/18 06:59 18:59 Intake Total 240 Balance 240 - Medications Medications: Current Medications Enoxaparin Sodium (Lovenox) 40 mg SC DAILY [facility] Last Admin: 09/01/18 09:40 Dose: 40 mg Ergocalciferol (Drisdol 50,000 Intl Units Cap) 1 cap PO Q7D [facility] Last Admin: 08/25/18 14:05 Dose: 1 cap Gabapentin (Neurontin) 300 mg PO TID [facility] Last Admin: 09/01/18 09:40 Dose: 300 mg Magnesium Oxide (Mag-Ox) 400 mg PO BID [facility] Last Admin: 09/01/18 09:40 Dose: 400 mg Mirtazapine (Remeron) 15 mg PO HS [facility] Last Admin: 08/31/18 22:53 Dose: 15 mg Morphine Sulfate (Morphine) 2 mg IVP Q6 PRN PRN Reason: Pain, severe (8-10) Last Admin: 09/01/18 06:35 Dose: 2 mg Trazodone HCl (Desyrel) 50 mg PO HS PRN PRN Reason: Insomnia Last Admin: 08/31/18 22:53 Dose: 50 mg Vitamin A (Vitamin A & D Oint Ud Foilpak) 1 ea TOP BID [facility] Last Admin: 09/01/18 09:41 Dose: 1 ea - Labs Labs: 08/28/18 11:11 08/28/18 11:11 - Constitutional Appears: Well, No Acute Distress - Head Exam Head Exam: ATRAUMATIC - Neck Exam Neck Exam: Full ROM, Normal Inspection - Respiratory Exam Respiratory Exam: NORMAL BREATHING PATTERN - Cardiovascular Exam Additional comments: +DP/PT pulses RLE - Neurological Exam Neurological Exam: Alert, Awake, Oriented x3 Neuro motor strength exam: Left Lower Extremity: 5, Right Lower Extremity: 2/1 (1/5 great toe ext, ankle DF, 3/5 PF, 4+/5 knee extension, 4/5 knee flexion) Additional comments: improving sensation medial aspect lower leg, now admits to tingling to medial side of thigh, still numb to foot, lateral lower leg and thigh - Psychiatric Exam Psychiatric exam: Normal Affect, Normal Mood - Skin Skin Exam: Dry, Intact, Normal Color, Warm Assessment and Plan (1) Rhabdomyolysis Assessment & Plan: Some noted improvement in sensation since last exam d/w Donaldo PT, although patient has weakness of right ankle, she does not demonstrate drop foot with ambulation and does not require AFO will need walker for ambulation no orthopedic intervention indicated orthopedically stable for d/c, recommend continued PT and follow up with neuro VTE proph will sign off, reconsult prn d/w Dr. Palomino, agrees wtih above Status: Acute (2) Sciatica neuralgia Status: Acute (3) Peripheral neuropathy Status: Acute
[2018-09-01] MEDS: Ergocalciferol 50,000 Intl Units Cap PO SCH (13:37)
--- NOTE | 2018-09-01 15:23 | CP.PCM.PN ---
Subjective - Date & Time of Evaluation Date of Evaluation: 09/01/18 Time of Evaluation: 15:23 - Subjective Subjective: Patient is seen and examined Reports improved tenderness of right thigh Objective - Vital Signs/Intake and Output Vital Signs (last 24 hours): Temp Pulse Resp BP Pulse Ox 97.4 F L 56 L 20 110/73 97 09/01/18 08:30 09/01/18 08:30 09/01/18 08:30 09/01/18 08:30 09/01/18 08:30 Intake and Output: 09/01/18 09/01/18 06:59 18:59 Intake Total 240 400 Balance 240 400 - Medications Medications: Current Medications Enoxaparin Sodium (Lovenox) 40 mg SC DAILY [facility] Last Admin: 09/01/18 09:40 Dose: 40 mg Ergocalciferol (Drisdol 50,000 Intl Units Cap) 1 cap PO Q7D [facility] Last Admin: 09/01/18 13:37 Dose: 1 cap Gabapentin (Neurontin) 300 mg PO TID [facility] Last Admin: 09/01/18 13:37 Dose: 300 mg Magnesium Oxide (Mag-Ox) 400 mg PO BID [facility] Last Admin: 09/01/18 09:40 Dose: 400 mg Mirtazapine (Remeron) 15 mg PO HS [facility] Last Admin: 08/31/18 22:53 Dose: 15 mg Morphine Sulfate (Morphine) 2 mg IVP Q6 PRN PRN Reason: Pain, severe (8-10) Last Admin: 09/01/18 12:29 Dose: 2 mg Trazodone HCl (Desyrel) 50 mg PO HS PRN PRN Reason: Insomnia Last Admin: 08/31/18 22:53 Dose: 50 mg Vitamin A (Vitamin A & D Oint Ud Foilpak) 1 ea TOP BID [facility] Last Admin: 09/01/18 09:41 Dose: 1 ea - Labs Labs: 08/28/18 11:11 08/28/18 11:11 - Head Exam Head Exam: NORMAL INSPECTION - Eye Exam Eye Exam: Normal appearance - ENT Exam ENT Exam: Mucous Membranes Moist - Respiratory Exam Respiratory Exam: Clear to Ausculation Bilateral - Cardiovascular Exam Cardiovascular Exam: REGULAR RHYTHM, +S1, +S2 - GI/Abdominal Exam GI & Abdominal Exam: Soft, Normal Bowel Sounds - Extremities Exam Extremities Exam: Normal Inspection Assessment and Plan (1) Nerve palsy Status: Acute (2) Rhabdomyolysis Status: Acute (3) Alcohol dependence Status: Acute (4) Opioid use disorder, severe, dependence Status: Acute (5) Shingles Status: Acute - Assessment and Plan (Free Text) Plan: PT/OT Patient is encouraged to ambulate Neurontin Trazodone Morphine for pain control DVT/GI prophalaxis
[2018-09-02 01:27] VITALS: RESP 20; O2SAT 96
[2018-09-02 08:14] VITALS: BP 96/61; PULSE 80; TEMP 97.3
[2018-09-02] MEDS: Magnesium Oxide 400 mg Tab UD PO SCH (10:40)
[2018-09-02] MEDS: Enoxaparin 40 mg Syringe SC SCH (10:40)
[2018-09-02] MEDS: Vitamins A & D Oint UD Foilpak TOP SCH (10:42)
--- NOTE | 2018-09-02 15:08 | CP.PCM.PN ---
Subjective - Date & Time of Evaluation Date of Evaluation: 09/02/18 Time of Evaluation: 11:45 - Subjective Subjective: Patient seen today states feels better, swelling to the R upper thigh decreased, denies any numbness, tinglings, walling with walker and tolerating vss - stable a febrile Objective - Vital Signs/Intake and Output Vital Signs (last 24 hours): Temp Pulse Resp BP Pulse Ox 97.3 F L 80 20 96/61 L 96 09/02/18 07:00 09/02/18 07:00 09/02/18 07:00 09/02/18 07:00 09/02/18 07:00 Intake and Output: 09/02/18 09/02/18 06:59 18:59 Intake Total 1999 Balance 1999 - Medications Medications: Current Medications Enoxaparin Sodium (Lovenox) 40 mg SC DAILY [facility] Last Admin: 09/02/18 10:40 Dose: Not Given Ergocalciferol (Drisdol 50,000 Intl Units Cap) 1 cap PO Q7D [facility] Last Admin: 09/01/18 13:37 Dose: 1 cap Gabapentin (Neurontin) 300 mg PO TID [facility] Last Admin: 09/02/18 13:26 Dose: 300 mg Magnesium Oxide (Mag-Ox) 400 mg PO BID [facility] Last Admin: 09/02/18 10:40 Dose: 400 mg Mirtazapine (Remeron) 15 mg PO HS [facility] Last Admin: 09/01/18 22:00 Dose: 15 mg Morphine Sulfate (Morphine) 2 mg IVP Q6 PRN PRN Reason: Pain, severe (8-10) Last Admin: 09/02/18 13:42 Dose: 2 mg Trazodone HCl (Desyrel) 50 mg PO HS PRN PRN Reason: Insomnia Last Admin: 09/01/18 22:03 Dose: 50 mg Vitamin A (Vitamin A & D Oint Ud Foilpak) 1 ea TOP BID [facility] Last Admin: 09/02/18 10:42 Dose: 1 ea - Labs Labs: 08/28/18 11:11 08/28/18 11:11 Assessment and Plan - Assessment and Plan (Free Text) Plan: A/P 38yo female, comes to ER reporting pain and numbness to her right lower extremity. Patient states around 3pm, she was drinking alcohol and used heroin, and fell asleep after. She reports upon waking up around 7pm, she felt numbness to her right leg and felt "cramping" to her posterior right thigh. She denies any known trauma or injury. No chest pain, shortness of breath, or other complaints. with right lower leg numbness, also with Rhabdomyolysis Dr. Pérez consulted No compartment syndrome. Likely nerve compression from fal l , Continue fluids monitor kidney fuinction and No surgical intervention CPK- IMPROVED WITH IVF Dr. Orantes consulted for MRI result - no orthopedic intervention indicated ,orthopedically stable for d/c, recommend continued PT and follow up with neuro PT seen patient and pt walking with walker As per Patient can only go to [facility] and no beds available d/w Dr. Rafi bboby, cleared for discharge home today CM will arrange , transportation and walker
--- NOTE | 2018-09-02 23:37 | CP.PCM.DIS ---
Provider - Provider Date of Admission: 08/21/18 22:04 Attending physician: Jensen Garrett MD Consults: 08/21/18 23:54 Neurology Consult Routine Comment: Consulting Provider: Priyank Vincent Consulting Physician: Priyank Vincent Reason for Consult: nerve palsy, foot drop 08/22/18 13:50 Physician Consult Routine Comment: Consulting Provider: Igor Clarke Consulting Physician: Igor Clarke Reason for Consult: Rhabdomyolysis 08/22/18 18:06 Physician Consult Stat Comment: Consulting Provider: Catarino Pérez Consulting Physician: Catarino Pérez Reason for Consult: possible compartment syndrome or right hip/thigh 08/24/18 15:51 Physician Consult Routine Comment: Consulting Provider: Vance Lucio Consulting Physician: Vance Lucio Reason for Consult: shingles 08/27/18 15:28 Orthopedic Consult Routine Comment: Consulting Provider: Wilber Palomino III Consulting Physician: Wilber Palomino III Reason for Consult: multiple hgh grade strains/ partial tears in right LE Time Spent in preparation of Discharge (in minutes): 35 Diagnosis - Discharge Diagnosis (1) Nerve palsy Status: Acute (2) Rhabdomyolysis Status: Acute (3) Alcohol dependence Status: Acute (4) Opioid use disorder, severe, dependence Status: Acute (5) Shingles Status: Acute Hospital Course - Lab Results Lab Results: Most Recent Lab Values WBC 4.7 K/uL (4.8-10.8) L 08/28/18 11:11 RBC 3.44 Mil/uL (3.80-5.20) L 08/28/18 11:11 Hgb 11.7 g/dL (11.0-16.0) 08/28/18 11:11 Hct 35.3 % (34.0-47.0) 08/28/18 11:11 MCV 102.6 fL (81.0-99.0) H 08/28/18 11:11 MCH 34.1 pg (27.0-31.0) H 08/28/18 11:11 MCHC 33.3 g/dL (33.0-37.0) 08/28/18 11:11 RDW 15.3 % (11.5-14.5) H 08/28/18 11:11 Plt Count 290 K/uL (130-400) 08/28/18 11:11 MPV 8.2 fL (7.2-11.7) 08/28/18 11:11 Neut % (Auto) 47.7 % (50.0-75.0) L 08/28/18 11:11 Lymph % (Auto) 37.3 % (20.0-40.0) 08/28/18 11:11 Marshall % (Auto) 11.9 % (0.0-10.0) H 08/28/18 11:11 Eos % (Auto) 2.2 % (0.0-4.0) 08/28/18 11:11 Baso % (Auto) 0.9 % (0.0-2.0) 08/28/18 11:11 Neut # (Auto) 2.2 K/uL (1.8-7.0) 08/28/18 11:11 Lymph # (Auto) 1.7 K/uL (1.0-4.3) 08/28/18 11:11 Marshall # (Auto) 0.6 K/uL (0.0-0.8) 08/28/18 11:11 Eos # (Auto) 0.1 K/uL (0.0-0.7) 08/28/18 11:11 Baso # (Auto) 0.0 K/uL (0.0-0.2) 08/28/18 11:11 Neutrophils % (Manual) 74 % (50-75) 08/21/18 20:22 Band Neutrophils % 6 % (0-2) H 08/21/18 20:22 Lymphocytes % (Manual) 13 % (20-40) L 08/21/18 20:22 Monocytes % (Manual) 6 % (0-10) 08/21/18 20:22 Basophils % (Manual) 1 % (0-2) 08/21/18 20:22 Platelet Estimate Slightly increased (NORMAL) H 08/21/18 20:22 Poikilocytosis (manual Slight 08/21/18 20:22 Anisocytosis (manual) Slight 08/21/18 20:22 Macrocytosis (manual) Slight 08/21/18 20:22 Sodium 137 mmol/L (132-148) 08/28/18 11:11 Potassium 3.7 mmol/L (3.6-5.2) 08/28/18 11:11 Chloride 106 mmol/L (98-107) 08/28/18 11:11 Carbon Dioxide 25 mmol/L (22-30) 08/28/18 11:11 Anion Gap 10 (10-20) 08/28/18 11:11 BUN 9 mg/dL (7-17) 08/28/18 11:11 Creatinine 0.6 mg/dL (0.7-1.2) L 08/28/18 11:11 Est GFR ( Amer) > 60 08/28/18 11:11 Est GFR (Non-Af Amer) > 60 08/28/18 11:11 Random Glucose 124 mg/dL (65-105) H 08/28/18 11:11 Calcium 9.1 mg/dl (8.6-10.4) 08/28/18 11:11 Phosphorus 2.8 mg/dL (2.5-4.5) 08/23/18 07:38 Magnesium 1.5 mg/dL (1.6-2.3) L 08/25/18 17:18 Total Bilirubin 0.2 mg/dL (0.2-1.3) 08/25/18 06:26 AST 218 U/L (14-36) H D 08/25/18 06:26 ALT 119 U/L (9-52) H D 08/25/18 06:26 Alkaline Phosphatase 61 U/L (38-126) 08/25/18 06:26 Total Creatine Kinase 786 U/L (30-135) H 08/28/18 11:11 Total Protein 5.7 g/dL (6.3-8.3) L 08/25/18 06:26 Albumin 3.0 g/dL (3.5-5.0) L 08/25/18 06:26 Globulin 2.7 gm/dL (2.2-3.9) 08/25/18 06:26 Albumin/Globulin Ratio 1.1 (1.0-2.1) 08/25/18 06:26 25-OH Vitamin D Total < 12.8 NG/ML (30.0-100.0) L 08/23/18 11:12 Beta HCG, Quant < 2.39 mIU/ML 08/21/18 20:22 Urine Color Yellow (YELLOW) 08/24/18 23:46 Urine Clarity Clear (Clear) 08/24/18 23:46 Urine pH 7.0 (5.0-8.0) 08/24/18 23:46 Ur Specific [place] 1.011 (1.003-1.030) 08/24/18 23:46 Urine Protein Negative mg/dL (NEGATIVE) 08/24/18 23:46 Urine Glucose (UA) Normal mg/dL (Normal) 08/24/18 23:46 Urine Ketones Negative mg/dL (NEGATIVE) 08/24/18 23:46 Urine Blood Negative (NEGATIVE) 08/24/18 23:46 Urine Nitrate Negative (NEGATIVE) 08/24/18 23:46 Urine Bilirubin Negative (NEGATIVE) 08/24/18 23:46 Urine Urobilinogen Normal mg/dL (0.2-1.0) 08/24/18 23:46 Ur Leukocyte Esterase Neg [place]/uL (Negative) 08/24/18 23:46 Urine WBC (Auto) < 1 /hpf (0-5) 08/24/18 23:46 Urine RBC (Auto) < 1 /hpf (0-3) 08/24/18 23:46 Ur Squamous Epith Cells 1 /hpf (0-5) 08/24/18 23:46 Urine Bacteria Rare (<OCC) 08/24/18 23:46 Urine Myoglobin < 28 mcg/L (< 28) 08/24/18 20:02 Urine Opiates Screen Positive (NEGATIVE) H 08/24/18 20:02 Urine Methadone Screen Negative (NEGATIVE) 08/24/18 20:02 Ur Barbiturates Screen Negative (NEGATIVE) 08/24/18 20:02 Ur Phencyclidine Scrn Negative (NEGATIVE) 08/24/18 20:02 Ur Amphetamines Screen Negative (NEGATIVE) 08/24/18 20:02 U Benzodiazepines Scrn Positive (NEGATIVE) 08/24/18 20:02 U Oth Cocaine Metabols Negative (NEGATIVE) 08/24/18 20:02 U Cannabinoids Screen Negative (NEGATIVE) 08/24/18 20:02 Alcohol, Quantitative 45 mg/dl (0-10) H 08/21/18 20:22 Hepatitis A IgM Ab Negative (NEGATIVE) 08/25/18 17:18 Hep Bs Antigen Negative (NEGATIVE) 08/25/18 17:18 Hep B Core IgM Ab Negative (NEGATIVE) 08/25/18 17:18 Hepatitis C Antibody Reactive (NEGATIVE) 08/25/18 17:18 HSV IgM Ab Screen Negative (Negative) 08/25/18 06:26 HSV I IgG Ab 16.20 index H 08/25/18 06:26 HSV I IgM Titer 08/25/18 06:26 HSV II IgG 11.30 index H 08/25/18 06:26 HSV II IgM Titer 08/25/18 06:26 HHV-6 IgM Ab Scrn Negative (Negative) 08/25/18 06:26 HIV 1&2 Antibody Screen Negative (NEGATIVE) 08/25/18 17:18 Mumps Virus IgG Ab >300.00 AU/mL 08/25/18 17:18 Rubella IgG Antibody 3.28 index 08/25/18 17:18 Rubeola (Measles) IgG 102.00 AU/mL 08/25/18 17:18 VZV IgG Antibody 3427.00 index 08/25/18 17:18 VZV IgM Antibody <=0.90 (<=0.90) 08/25/18 17:18 - Hospital Course Hospital Course: Patient with history of polysubstance abuse presented with alcohol intoxication and status post fall. Patient was noticed to have right thigh swelling and ten derness. Patient also was found to have rhabdomyolysis was treated with IV fluids. Evaluation for compartment syndrome was performed by surgery which showed no evidence of compartment syndrome. Patient was initially unable to ambulate and with physical therapy her condition improved. Attempt was made to place patient in subacute rehab but she was not accepted due to history of polysubstance abuse. Patient's condition eventually improved and is discharged home to be followed up as outpatient Discharge Exam - Head Exam Head Exam: ATRAUMATIC - Eye Exam Eye Exam: Normal appearance - ENT Exam ENT Exam: Mucous Membranes Moist - Respiratory Exam Respiratory Exam: Clear to PA & Lateral - Cardiovascular Exam Cardiovascular Exam: REGULAR RHYTHM - GI/Abdominal Exam GI & Abdominal Exam: Normal Bowel Sounds - Neurological Exam Neurological exam: Alert, Oriented x3 Discharge Plan - Discharge Medications Prescriptions: Walker [Rolling Walker] 1 dev XX PRN #1 dev - Follow Up Plan Condition: GUARDED Disposition: HOME/ ROUTINE Instructions: Rhabdomyolysis (DC), Polysubstance Abuse (DC) Additional Instructions: Please follow up with Dr. Stein office in 1 week Please continue home PT for ambulation Please resume all home medications Please monitor leg edema on left thigh if incr. size or change in color or any concerns please come to the ED for eval
== END 2018-09-02 16:34 | disposition home or self-care (01) | DRG 533 ==
LOC: C.ER 19:05 → C.6T 22:04
PROVIDERS: ADMIT Internal Medicine Critical Care Medicine; ATTEND Internal Medicine Critical Care Medicine
DX: G57.91 Unspecified mononeuropathy of right lower limb (principal); M62.82 Rhabdomyolysis; N17.9 Acute kidney failure, unspecified; B20 Human immunodeficiency virus [HIV] disease; F11.20 Opioid dependence, uncomplicated; S76.911A Strain of unspecified muscles, fascia and tendons at thigh level, right thigh, initial encounter; F10.229 Alcohol dependence with intoxication, unspecified; G83.9 Paralytic syndrome, unspecified; G57.01 Lesion of sciatic nerve, right lower limb; M54.31 Sciatica, right side; M54.40 Lumbago with sciatica, unspecified side; J44.9 Chronic obstructive pulmonary disease, unspecified; F43.10 Post-traumatic stress disorder, unspecified; D64.9 Anemia, unspecified; E83.42 Hypomagnesemia; W19.XXXA Unspecified fall, initial encounter; E55.9 Vitamin D deficiency, unspecified; R94.5 Abnormal results of liver function studies; B02.9 Zoster without complications; M21.371 Foot drop, right foot; F17.210 Nicotine dependence, cigarettes, uncomplicated; Y90.2 Blood alcohol level of 40-59 mg/100 ml; Y92.009 Unspecified place in unspecified non-institutional (private) residence as the place of occurrence of the external cause